=== PATIENT | male | born 1970 | race Caucasian/White ===

== ENCOUNTER 2021-12-05 01:47 | Inpatient (IN) | payer MEDICAID ==
--- NOTE | 2021-12-05 02:21 | ERPHSYRPT ---
- History of Present Illness Time Seen by Provider: 12/05/21 02:20 Source: patient Exam Limitations: no limitations Patient Subjective Stated Complaint: pt states he has been sick for the last 4 days and has been increasingly short of breath to. night Triage Nursing Assessment: pt awake and alert, back to room per wheelchair, transfers to stretcher with assist of 1. respirations tachy at 40 with o2 sat 90% on room air. o2 applied at 2l per nc and sat increased to 94%. lung sounds diminished bilat. skin, diaphoretic and warm.heart [id number] on monitor, sinus tach. Timing/Duration: day(s) (4) Activities at Onset: activity Severity of Dyspnea-Max: moderate Severity of Dyspnea-Current: moderate Possible Cause: smoke exposure Modifying Factors: Improves With: activity Associated Symptoms: denies symptoms Allergies/Adverse Reactions: No Known Drug Allergies Allergy (Verified 12/05/21 01:54) Home Medications: No Reportable Medications [No Reported Medications] 12/05/21 [History] Hx Tetanus, Diphtheria Vaccination/Date Given: Yes Hx Influenza Vaccination/Date Given: No Hx Pneumococcal Vaccination/Date Given: No Immunizations Up to Date: Yes Travel Risk - International Travel Have you traveled outside of the country in past 3 weeks: No - Coronavirus Screening Are you exhibiting any of the following symptoms?: Yes Symptoms: Fever, Cough: New Onset, Shortness of Breath, Headaches/Body Aches/Fatigue Close contact with a COVID-19 positive Pt in past 14-21 Days: Yes - Vaccine Status Have you recieved a Covid-19 vaccination: No - Review of Systems Constitutional: Fatigue, Malaise Eyes: No Symptoms Ears, Nose, & Throat: No Symptoms Respiratory: Cough Cardiac: No Symptoms Abdominal/Gastrointestinal: No Symptoms Genitourinary Symptoms: No Symptoms Musculoskeletal: No Symptoms Skin: No Symptoms Neurological: No Symptoms Psychological: No Symptoms Endocrine: No Symptoms Hematologic/Lymphatic: No Symptoms Immunological/Allergic: No Symptoms - Past Medical History Pertinent Past Medical History: Yes Cardiac History: Hypertension - Past Surgical History Past Surgical History: Yes Other Surgical History: surgery on leg, pt poor historian at [facility]ist[facility] - Social History Smoking Status: Current every day smoker How long have you smoked: yrs Drug Use: methamphetamines Patient Lives Alone: No - Nursing Vital Signs Nursing Vital Signs: Initial Vital Signs Temperature 98.7 F 12/05/21 01:55 Pulse Rate 127 H 12/05/21 01:55 Respiratory Rate 42 H 12/05/21 01:55 Blood Pressure 155/91 12/05/21 01:55 O2 Sat by Pulse Oximetry 90 L 12/05/21 01:55 Pain Scale Pain Intensity 8 - Physical Exam General Appearance: moderate distress Eye Exam: PERRL/EOMI Ears, Nose, Throat Exam: normal ENT inspection Neck Exam: normal inspection, non-tender Respiratory Exam: airway intact, diminished breath sounds, rhonchi Cardiovascular/Chest Exam: normal heart sounds, regular rate/rhythm, tachycardia Abdominal/Gastrointestinal Exam: soft Rectal Exam: deferred Extremity Exam: non-tender Neurologic Exam: alert, oriented x 3 Skin Exam: normal color SpO2 Interpretation: borderline oxygenation SpO2: 90 O2 Delivery: Nasal Cannula - Course Nursing assessment & vital signs reviewed: Yes EKG Interpreted by Me: RATE, Sinus Tach (124), NORMAL AXIS, NORMAL INTERVALS, NORMAL QRS, NORMAL ST-T - Radiology Exams Other X-ray Interpretation: Interpreted by me, Infiltrates, Pneumonia (RLL) Ordered Tests: Active Orders 24 hr Category Date Time Status EKG-ER Only STAT Care 12/05/21 02:26 Active CHEST 1 VIEW (PORTABLE) Stat Exams 12/05/21 02:27 Taken ABG [ARTERIAL BLOOD GASES] Stat Lab 12/05/21 02:42 Completed BLOOD CULTURE Stat Lab 12/05/21 03:30 Received BLOOD CULTURE Stat Lab 12/05/21 03:35 Received CBC W DIFF Stat Lab 12/05/21 02:30 Completed CMP Stat Lab 12/05/21 02:30 Completed D-DIMER QUANTITATIVE Stat Lab 12/05/21 02:30 Completed Lactic Acid Stat Lab 12/05/21 02:42 Completed Manual Differential NC Stat Lab 12/05/21 02:30 Completed NT PRO BNP Stat Lab 12/05/21 02:30 Completed TROPONIN Q3H Lab 12/05/21 02:30 Completed TROPONIN Q3H Lab 12/05/21 06:25 Received TROPONIN Q3H Lab 12/05/21 08:30 Ordered TROPONIN Q3H Lab 12/05/21 11:30 Ordered TROPONIN Q3H Lab 12/05/21 14:30 Ordered UA W/RFX UR CULTURE Stat Lab 12/05/21 06:00 Completed Urine Triage Profile Stat Lab 12/05/21 Results Medication Summary Discontinued Medications Generic Name Dose Route Start Last Admin Trade Name Dorinda PRN Reason Stop Dose Admin Cefepime HCl Confirm 12/05/21 03:33 Cefepime Hcl 1 Gm Vial Administered 12/05/21 03:34 Dose 1 g .ROUTE .STK-MED ONE Enoxaparin Sodium 100 mg 12/05/21 06:15 Enoxaparin Sodium 100 Mg/Ml Syringe 1 mg/kg (100 mg) 12/05/21 06:16 SQ ONCE ONE Enoxaparin Sodium Confirm 12/05/21 06:19 Enoxaparin Sodium 120 Mg/0.8 Ml Syringe Administered 12/05/21 06:20 Dose 120 mg SQ .STK-MED ONE Cefepime HCl 1 g/ Sodium 100 mls @ 200 mls/hr 12/05/21 03:02 12/05/21 03:49 Chloride IV 12/05/21 03:31 200 mls/hr STAT STA Administration Sodium Chloride Confirm 12/05/21 03:35 Sodium Chloride 0.9% 100 Ml Bag Administered 12/05/21 03:36 Dose 100 mls @ ud .ROUTE .STK-MED ONE Sodium Chloride 1,000 mls @ 999 mls/hr 12/05/21 03:48 12/05/21 06:05 Sodium Chloride 0.9% 1000 Ml IV 12/05/21 04:48 0 mls/hr .Q1H1M STA Infusion Sodium Chloride Confirm 12/05/21 03:58 Sodium Chloride 0.9% 1000 Ml Administered 12/05/21 03:59 Dose 1,000 mls @ ud .ROUTE .STK-MED ONE Insulin Human Regular 10 unit 12/05/21 03:15 12/05/21 04:05 Insulin Regular, Human 1 Unit IV 12/05/21 03:16 10 unit STAT ONE Administration Insulin Human Regular Confirm 12/05/21 03:57 Insulin Regular, Human 1 Unit Administered 12/05/21 03:58 Dose 10 unit .ROUTE .STK-MED ONE Morphine Sulfate 4 mg 12/05/21 04:22 12/05/21 04:34 Morphine Sulfate 4 Mg/Ml Injection IV 12/05/21 04:23 4 mg STAT ONE Administration Morphine Sulfate Confirm 12/05/21 04:33 Morphine Sulfate 4 Mg/Ml Injection Administered 12/05/21 04:34 Dose 4 mg .ROUTE .STK-MED ONE Ondansetron HCl 4 mg 12/05/21 04:22 12/05/21 04:34 Ondansetron Hcl 4 Mg/2 Ml Vial IV 12/05/21 04:23 4 mg STAT ONE Administration Ondansetron HCl Confirm 12/05/21 04:32 Ondansetron Hcl 4 Mg/2 Ml Vial Administered 12/05/21 04:33 Dose 4 mg .ROUTE .STK-MED ONE Pantoprazole Sodium 40 mg 12/05/21 04:23 12/05/21 04:34 Pantoprazole 40 Mg Vial IV 12/05/21 04:24 40 mg STAT ONE Administration Pantoprazole Sodium Confirm 12/05/21 04:32 Pantoprazole 40 Mg Vial Administered 12/05/21 04:33 Dose 40 mg IV .STK-MED ONE Lab/Rad Data: Laboratory Result Diagrams 12/05/21 02:30 12/05/21 02:30 Laboratory Results 12/05/21 12/05/21 12/05/21 Range/Units Unknown 06:00 02:59 WBC (4.0-10.5) K/mm3 RBC (4.1-5.6) M/mm3 Hgb (12.5-18.0) gm/dl Hct (42-50) % MCV (78-100) fl MCH (26-32) pg MCHC (32-36) g/dl RDW (11.5-14.0) % Plt Count (150-450) K/mm3 MPV (7.5-11.0) fl Segmented Neutrophils (36.-66.) % Lymphocytes (Manual) (24-44) % Monocytes (Manual) (0.0-12.0) % Toxic Granulation Platelet Estimate (NORMAL) RBC Morphology D-Dimer (215-500) ng/mL Puncture Site pCO2 (35-45) mmHg pO2 (75-100) mmHg Base Excess (-2.0-2.0) O2 Saturation (94-100) g/dF ABG pH (7.35-7.45) ABG HCO3 (22-28) ABG O2 Sat (Measured) (95-100) % Soto Test A-a Gradient a/A Ratio Hemoglobin Carboxyhemoglobin (0.0-6.9) % THgb Methemoglobin (1.4-1.5) % Temperature C POC O2 Flow Rate % Sodium (137-145) mmol/L Potassium (3.5-5.1) mmol/L Chloride (98-107) mmol/L Carbon Dioxide (22-30) mmol/L Anion Gap (5-15) MEQ/L BUN (9-20) mg/dL Creatinine (0.66-1.25) mg/dL Estimated GFR ML/MIN Glucose (74-106) mg/dL Lactic Acid (0.4-2.0) Calcium (8.4-10.2) mg/dL Total Bilirubin (0.2-1.3) mg/dL AST (17-59) U/L ALT (0-50) U/L Alkaline Phosphatase (38-126) U/L Troponin I (0.000-0.034) ng/mL NT-Pro-B Natriuret Pep (0-900) pg/mL Serum Total Protein (6.3-8.2) g/dL Albumin (3.5-5.0) g/dL Urine Color YELLOW (YELLOW) Urine Appearance CLEAR (CLEAR) Urine pH 6.0 (5-6) Ur Specific Moseley 1.023 (1.005-1.025) Urine Protein >=500 (Negative) Urine Ketones TRACE (NEGATIVE) Urine Blood MODERATE (0-5) Bradford/ul Urine Nitrite NEGATIVE (NEGATIVE) Urine Bilirubin NEGATIVE (NEGATIVE) Urine Urobilinogen NEGATIVE (0-1) mg/dL Ur Leukocyte Esterase NEGATIVE (NEGATIVE) Urine WBC (Auto) NONE (0-5) /HPF Urine RBC (Auto) NONE (0-2) /HPF U Epithel Cells (Auto) NONE (FEW) /HPF Urine Bacteria (Auto) NONE (NEGATIVE) /HPF Urine Culture Reflexed NO (NO) Urine Glucose >=500 (NEGATIVE) mg/dL Urine Opiates Level NEGATIVE (NEGATIVE) Ur Methadone NEGATIVE (NEGATIVE) Urine Barbiturates NEGATIVE (NEGATIVE) Ur Phencyclidine (PCP) NEGATIVE (NEGATIVE) Urine Amphetamine Pending U Benzodiazepine Level NEGATIVE (NEGATIVE) Urine Cocaine NEGATIVE (NEGATIVE) Urine Marijuana (THC) NEGATIVE (NEGATIVE) Influenza Type A Ag NEGATIVE (NEGATIVE) Influenza Type B Ag NEGATIVE (NEGATIVE) RSV (PCR) NEGATIVE (Negative) SARS-CoV-2 (PCR) POSITIVE A (NEGATIVE) 12/05/21 12/05/21 12/05/21 Range/Units 02:42 02:42 02:30 WBC (4.0-10.5) K/mm3 RBC (4.1-5.6) M/mm3 Hgb (12.5-18.0) gm/dl Hct (42-50) % MCV (78-100) fl MCH (26-32) pg MCHC (32-36) g/dl RDW (11.5-14.0) % Plt Count (150-450) K/mm3 MPV (7.5-11.0) fl Segmented Neutrophils (36.-66.) % Lymphocytes (Manual) (24-44) % Monocytes (Manual) (0.0-12.0) % Toxic Granulation Platelet Estimate (NORMAL) RBC Morphology D-Dimer (215-500) ng/mL Puncture Site LEFT BRACHIAL pCO2 36 (35-45) mmHg pO2 60 L (75-100) mmHg Base Excess 2.7 H (-2.0-2.0) O2 Saturation 91.0 L (94-100) g/dF ABG pH 7.47 H (7.35-7.45) ABG HCO3 26.2 (22-28) ABG O2 Sat (Measured) 94.0 L (95-100) % Soto Test NOT APPLICABLE A-a Gradient 152 a/A Ratio 0.28 Hemoglobin 17.4 Carboxyhemoglobin 2.0 (0.0-6.9) % THgb Methemoglobin 1.2 L (1.4-1.5) % Temperature 37.0 C POC O2 Flow Rate 36 % Sodium (137-145) mmol/L Potassium 4.0 (3.5-5.1) mmol/L Chloride (98-107) mmol/L Carbon Dioxide (22-30) mmol/L Anion Gap (5-15) MEQ/L BUN (9-20) mg/dL Creatinine (0.66-1.25) mg/dL Estimated GFR ML/MIN Glucose (74-106) mg/dL Lactic Acid 1.7 (0.4-2.0) Calcium (8.4-10.2) mg/dL Total Bilirubin (0.2-1.3) mg/dL AST (17-59) U/L ALT (0-50) U/L Alkaline Phosphatase (38-126) U/L Troponin I < 0.012 (0.000-0.034) ng/mL NT-Pro-B Natriuret Pep (0-900) pg/mL Serum Total Protein (6.3-8.2) g/dL Albumin (3.5-5.0) g/dL Urine Color (YELLOW) Urine Appearance (CLEAR) Urine pH (5-6) Ur Specific Moseley (1.005-1.025) Urine Protein (Negative) Urine Ketones (NEGATIVE) Urine Blood (0-5) Bradford/ul Urine Nitrite (NEGATIVE) Urine Bilirubin (NEGATIVE) Urine Urobilinogen (0-1) mg/dL Ur Leukocyte Esterase (NEGATIVE) Urine WBC (Auto) (0-5) /HPF Urine RBC (Auto) (0-2) /HPF U Epithel Cells (Auto) (FEW) /HPF Urine Bacteria (Auto) (NEGATIVE) /HPF Urine Culture Reflexed (NO) Urine Glucose (NEGATIVE) mg/dL Urine Opiates Level (NEGATIVE) Ur Methadone (NEGATIVE) Urine Barbiturates (NEGATIVE) Ur Phencyclidine (PCP) (NEGATIVE) Urine Amphetamine U Benzodiazepine Level (NEGATIVE) Urine Cocaine (NEGATIVE) Urine Marijuana (THC) (NEGATIVE) Influenza Type A Ag (NEGATIVE) Influenza Type B Ag (NEGATIVE) RSV (PCR) (Negative) SARS-CoV-2 (PCR) (NEGATIVE) 12/05/21 12/05/21 12/05/21 Range/Units 02:30 02:30 02:30 WBC 24.5 H (4.0-10.5) K/mm3 RBC 5.76 H (4.1-5.6) M/mm3 Hgb 17.9 (12.5-18.0) gm/dl Hct 50.1 H (42-50) % MCV 87.0 (78-100) fl MCH 31.1 (26-32) pg MCHC 35.7 (32-36) g/dl RDW 12.7 (11.5-14.0) % Plt Count 177 (150-450) K/mm3 MPV 11.1 H (7.5-11.0) fl Segmented Neutrophils 83 H (36.-66.) % Lymphocytes (Manual) 11 L (24-44) % Monocytes (Manual) 6 (0.0-12.0) % Toxic Granulation 1+ Platelet Estimate NORMAL (NORMAL) RBC Morphology NORMAL D-Dimer 896 H* (215-500) ng/mL Puncture Site pCO2 (35-45) mmHg pO2 (75-100) mmHg Base Excess (-2.0-2.0) O2 Saturation (94-100) g/dF ABG pH (7.35-7.45) ABG HCO3 (22-28) ABG O2 Sat (Measured) (95-100) % Soto Test A-a Gradient a/A Ratio Hemoglobin Carboxyhemoglobin (0.0-6.9) % THgb Methemoglobin (1.4-1.5) % Temperature C POC O2 Flow Rate % Sodium 125 L (137-145) mmol/L Potassium 4.2 (3.5-5.1) mmol/L Chloride 86 L (98-107) mmol/L Carbon Dioxide 25 (22-30) mmol/L Anion Gap 18.1 H (5-15) MEQ/L BUN 15 (9-20) mg/dL Creatinine 0.68 (0.66-1.25) mg/dL Estimated GFR > 60.0 ML/MIN Glucose 370 H (74-106) mg/dL Lactic Acid (0.4-2.0) Calcium 9.6 (8.4-10.2) mg/dL Total Bilirubin 1.20 (0.2-1.3) mg/dL AST 41 (17-59) U/L ALT 53 H (0-50) U/L Alkaline Phosphatase 164 H (38-126) U/L Troponin I (0.000-0.034) ng/mL NT-Pro-B Natriuret Pep 428 (0-900) pg/mL Serum Total Protein 7.6 (6.3-8.2) g/dL Albumin 4.1 (3.5-5.0) g/dL Urine Color (YELLOW) Urine Appearance (CLEAR) Urine pH (5-6) Ur Specific Moseley (1.005-1.025) Urine Protein (Negative) Urine Ketones (NEGATIVE) Urine Blood (0-5) Bradford/ul Urine Nitrite (NEGATIVE) Urine Bilirubin (NEGATIVE) Urine Urobilinogen (0-1) mg/dL Ur Leukocyte Esterase (NEGATIVE) Urine WBC (Auto) (0-5) /HPF Urine RBC (Auto) (0-2) /HPF U Epithel Cells (Auto) (FEW) /HPF Urine Bacteria (Auto) (NEGATIVE) /HPF Urine Culture Reflexed (NO) Urine Glucose (NEGATIVE) mg/dL Urine Opiates Level (NEGATIVE) Ur Methadone (NEGATIVE) Urine Barbiturates (NEGATIVE) Ur Phencyclidine (PCP) (NEGATIVE) Urine Amphetamine U Benzodiazepine Level (NEGATIVE) Urine Cocaine (NEGATIVE) Urine Marijuana (THC) (NEGATIVE) Influenza Type A Ag (NEGATIVE) Influenza Type B Ag (NEGATIVE) RSV (PCR) (Negative) SARS-CoV-2 (PCR) (NEGATIVE) - Progress Progress: improved Air Movement: fair Progress Note: 12/05/21 06:46 Has COVID with hypoxemia and pneumonia. May have a bacterial component. EKG's normal. Troponins neg. Vague right side chest pain (pneumonia that side). D- dimer up somewhat, still think PE unlikely, but gave full dose of lovenox pending eval by PCP. Cefipime given. Diabetes, ? new dx. Gave one dose of insulin in ER. Dr. Romero will see him shortly. Blood Culture(s) Obtained: Yes Antibiotics given: Yes Discussed with Dr.: Other (Dr. Espinoza) Will see patient in: hospital (full admit) Counseled pt/family regarding: lab results, diagnosis, rad results - Departure Departure Disposition: In-patient Admission Clinical Impression: Pneumonia due to COVID-19 virus Uncontrolled diabetes mellitus Qualifiers: Diabetes mellitus type: type 2 Glycemic state: with hyperglycemia Qualified Code(s): E11.65 - Type 2 diabetes mellitus with hyperglycemia Condition: Stable Critical Care Time: Yes Critical Care Time(excluding separately billable procedures): Critical 30-74 mins Referrals: SANGEETA ROMERO [ACTIVE STAFF] - Follow up/PCP as directed
[2021-12-05 02:47] LABS: A-aADO2 152; ABG HEMOGLOBIN 17.4; ABG SITE LEFT BRACHIAL; ARTERIAL BLOOD GAS BASE EXCESS 2.7 (-2.0-2.0); ARTERIAL BLOOD GAS FIO2 36 %; ARTERIAL BLOOD GAS PCO2 36 mmHg (35-45); ARTERIAL BLOOD GAS PO2 60 mmHg (75-100); ARTERIAL BLOOD GAS pH 7.47 (7.35-7.45); HCO3- 26.2 (22-28); Methhemoglobin 1.2 % (1.4-1.5)
[2021-12-05 02:50] LABS: Hematocrit 50.1 % (42-50); Hemoglobin 17.9 gm/dl (12.5-18.0); Mean Corpuscular Hemoglobin 31.1 pg (26-32); Mean Corpuscular Hgb Concent. 35.7 g/dl (32-36); Mean Platelet Volume 11.1 fl (7.5-11.0); Platelet Count 177 K/mm3 (150-450); Red Blood Count 5.76 M/mm3 (4.1-5.6); Red Cell Distribution Width 12.7 % (11.5-14.0); White Blood Count 24.5 K/mm3 (4.0-10.5)
[2021-12-05] MEDS ORDERED: SODIUM CHLORIDE 0.9% IV STA (03:02)
[2021-12-05] MEDS ORDERED: MAXIPIME IV STA (03:02)
[2021-12-05 03:06] LABS: ALBUMIN 4.1 g/dL (3.5-5.0); ALKALINE PHOSPHATASE 164 U/L (38-126); ANION GAP 18.1 MEQ/L (5-15); BLOOD UREA NITROGEN 15 mg/dL (9-20); CHLORIDE 86 mmol/L (98-107); Calcium 9.6 mg/dL (8.4-10.2); Carbon Dioxide 25 mmol/L (22-30); Creatinine 1 0.68 mg/dL (0.66-1.25); EST GLOMERULAR FILTRATION RATE > 60.0 ML/MIN; Glucose 370 mg/dL (74-106); NT PRO BNP 428 pg/mL (0-900); Potassium 4.2 mmol/L (3.5-5.1); SGOT/AST 41 U/L (17-59); SGPT/ALT 53 U/L (0-50); SODIUM 125 mmol/L (137-145); Total Protein 7.6 g/dL (6.3-8.2)
[2021-12-05] MEDS ORDERED: HUMULIN R IV ONE (03:15)
[2021-12-05] MEDS ORDERED: MAXIPIME 1 GM ONE (03:33)
[2021-12-05] MEDS ORDERED: Sodium Chloride 0.9% 100 ML BAG 100 ML ONE (03:35)
[2021-12-05 03:41] LABS: INFLUENZA A NEGATIVE (NEGATIVE); INFLUENZA B NEGATIVE (NEGATIVE); RESPIRATORY SYNCTIAL VIRUS NEGATIVE (Negative)
[2021-12-05 03:48] LABS: SARS-CoV-2 Xpert Express POSITIVE (NEGATIVE)
[2021-12-05] MEDS ORDERED: Sodium Chloride 0.9% 1000 ML 1,000 ML IV STA (03:48)
[2021-12-05] MEDS ORDERED: HUMULIN R ONE (03:57)
[2021-12-05] MEDS ORDERED: Sodium Chloride 0.9% 1000 ML 1,000 ML ONE (03:58)
[2021-12-05] MEDS ORDERED: MORPHINE SULFATE 4 MG INJ IV ONE ×2 (04:22→06:45)
[2021-12-05] MEDS ORDERED: Zofran 4 MG/2 ML VIAL IV ONE (04:22)
[2021-12-05] MEDS ORDERED: PROTONIX 40 MG IV IV ONE ×2 (04:23→04:32)
[2021-12-05] MEDS ORDERED: Zofran 4 MG/2 ML VIAL ONE (04:32)
[2021-12-05] MEDS ORDERED: MORPHINE SULFATE 4 MG INJ ONE ×2 (04:33→06:49)
[2021-12-05 05:35] LABS: Lymphocytes 11 % (24-44); Monocyte 6 % (0.0-12.0); Neutrophils 83 % (36.-66.); Platelet Estimate NORMAL (NORMAL); Total Cells Counted 100; Toxic Granulation 1+
[2021-12-05] MEDS ORDERED: ENOXAPARIN SODIUM SQ ONE ×2 (06:15→06:19)
[2021-12-05 06:21] LABS: Appearance CLEAR (CLEAR); Bilirubin NEGATIVE (NEGATIVE); Blood MODERATE Ery/ul (0-5); Glucose >=500 mg/dL (NEGATIVE); Ketones TRACE (NEGATIVE); Leukocyte Esterase NEGATIVE (NEGATIVE); Nitrite NEGATIVE (NEGATIVE); Protein,Urine Dip >=500 (Negative); Specific Gravity 1.023 (1.005-1.025); Urobilinogen NEGATIVE mg/dL (0-1)
[2021-12-05 06:34] LABS: Barbiturate,Urine NEGATIVE (NEGATIVE); Benzodiazepine,Urine NEGATIVE (NEGATIVE); Cocaine,Urine NEGATIVE (NEGATIVE); Methadone,Urine NEGATIVE (NEGATIVE); Opiate,Urine NEGATIVE (NEGATIVE); PCP,Urine NEGATIVE (NEGATIVE); THC,Urine NEGATIVE (NEGATIVE)
[2021-12-05 06:56] LABS: Amphetamine,Urine POSITIVE (NEGATIVE)
--- NOTE | 2021-12-05 08:09 | XRAY ---
Indication: Fever, cough, and short of breath. Comparison: None Portable chest demonstrates moderate right lower lobe consolidating airspace disease. Incidental azygous lobe. Remaining heart and lungs unremarkable. Bony thorax intact with mild osteopenia and degenerative changes.
[2021-12-05] MEDS ORDERED: MORPHINE SULFATE 10 MG/ML IV PRN (09:01)
[2021-12-05] MEDS ORDERED: Ativan 2 MG/1 ML VIAL IV PRN ×2 (09:02)
[2021-12-05] MEDS ORDERED: Zofran 4 MG/2 ML VIAL IV PRN (09:02)
[2021-12-05] MEDS ORDERED: FEVERALL 650 MG PR PRN (09:02)
[2021-12-05] MEDS ORDERED: TYLENOL EXTRA STRENGTH 500 MG PO PRN (09:02)
[2021-12-05] MEDS ORDERED: Sodium Chloride 0.9% 1000 ML 1,000 ML IV SCH (09:15)
[2021-12-05] MEDS ORDERED: HUMALOG SQ PRN (09:15)
[2021-12-05] MEDS: DECADRON 10MG INJ. IV SCH (09:25)
[2021-12-05] MEDS: OLUMIANT PO SCH (09:25)
[2021-12-05] MEDS: HUMALOG SQ PRN ×4 (09:28→22:01)
[2021-12-05] MEDS ORDERED: REMDESIVIR 200 MG in Sodium Chloride 0.9% 250 ML 250 ML IV ONE (10:00)
[2021-12-05] MEDS: Sodium Chloride 0.9% 1000 ML 1,000 ML IV SCH (11:43)
[2021-12-05] MEDS ORDERED: Lantus Insulin SQ SCH (22:00)
[2021-12-05] MEDS: ROCEPHIN 1 Gm-D5w 50 ml Bag** 1 G/50 ML IVPB IV SCH (22:02)
[2021-12-05] MEDS: HYDROCODONE-CHLORPHEN ER SUSP PO PRN (23:09)
[2021-12-05] MEDS: MORPHINE SULFATE 10 MG/ML IV PRN (23:09)
[2021-12-06 07:50] LABS: Hemoglobin 15.4 gm/dl (12.5-18.0); Mean Cell Volume 90.4 fl (78-100); Mean Corpuscular Hemoglobin 30.9 pg (26-32); Mean Corpuscular Hgb Concent. 34.2 g/dl (32-36); Mean Platelet Volume 10.8 fl (7.5-11.0); Platelet Count 164 K/mm3 (150-450); Red Blood Count 4.98 M/mm3 (4.1-5.6); White Blood Count 15.1 K/mm3 (4.0-10.5)
[2021-12-06] MEDS: ENOXAPARIN SODIUM SQ SCH (08:29)
[2021-12-06] MEDS: OLUMIANT PO SCH (08:29)
[2021-12-06 08:30] LABS: ALBUMIN 3.5 g/dL (3.5-5.0); ALKALINE PHOSPHATASE 154 U/L (38-126); ANION GAP 11.6 MEQ/L (5-15); BLOOD UREA NITROGEN 22 mg/dL (9-20); CHLORIDE 92 mmol/L (98-107); Calcium 9.3 mg/dL (8.4-10.2); Carbon Dioxide 27 mmol/L (22-30); Creatinine 1 0.54 mg/dL (0.66-1.25); EST GLOMERULAR FILTRATION RATE > 60.0 ML/MIN; Glucose 439 mg/dL (74-106); NT PRO BNP 87.6 pg/mL (0-900); Potassium 4.6 mmol/L (3.5-5.1); SGOT/AST 30 U/L (17-59); SGPT/ALT 40 U/L (0-50); SODIUM 126 mmol/L (137-145); Total Protein 7.3 g/dL (6.3-8.2)
[2021-12-06] MEDS: DECADRON 10MG INJ. IV SCH (08:30)
[2021-12-06] MEDS: REMDESIVIR 100 MG in Sodium Chloride 0.9% 100 ML BAG 100 ML IV SCH (08:33)
[2021-12-06] MEDS: HUMALOG SQ PRN (08:34)
[2021-12-06] MEDS: HUMULIN R 100 UNIT in Sodium Chloride 0.9% 100 ML BAG 100 ML IV PRN ×2 (12:15→20:47)
[2021-12-06] MEDS ORDERED: HUMULIN R IV ONE (12:30)
[2021-12-06] MEDS: HYDROCODONE-CHLORPHEN ER SUSP PO PRN (17:07)
[2021-12-06] MEDS: Ativan 1 MG PO PRN (17:07)
[2021-12-06] MEDS: Sodium Chloride 0.9% 1000 ML 1,000 ML IV SCH (20:53)
[2021-12-06] MEDS: ROCEPHIN 1 Gm-D5w 50 ml Bag** 1 G/50 ML IVPB IV SCH (20:53)
[2021-12-07] MEDS ORDERED: Lantus Insulin SQ SCH ×2 (03:15→22:00)
[2021-12-07] MEDS: Ativan 1 MG PO PRN (06:33)
[2021-12-07] MEDS: HUMALOG SQ PRN ×4 (08:13→22:08)
[2021-12-07 09:02] LABS: Hematocrit 47.9 % (42-50); Hemoglobin 16.2 gm/dl (12.5-18.0); Mean Cell Volume 90.9 fl (78-100); Mean Corpuscular Hemoglobin 30.7 pg (26-32); Mean Corpuscular Hgb Concent. 33.8 g/dl (32-36); Mean Platelet Volume 11.1 fl (7.5-11.0); Platelet Count 186 K/mm3 (150-450); Red Blood Count 5.27 M/mm3 (4.1-5.6); Red Cell Distribution Width 12.8 % (11.5-14.0); White Blood Count 15.4 K/mm3 (4.0-10.5)
[2021-12-07 09:10] LABS: ALBUMIN 3.7 g/dL (3.5-5.0); ALKALINE PHOSPHATASE 143 U/L (38-126); ANION GAP 9.6 MEQ/L (5-15); BLOOD UREA NITROGEN 22 mg/dL (9-20); CHLORIDE 92 mmol/L (98-107); Calcium 9.5 mg/dL (8.4-10.2); Carbon Dioxide 32 mmol/L (22-30); Creatinine 1 0.62 mg/dL (0.66-1.25); EST GLOMERULAR FILTRATION RATE > 60.0 ML/MIN; Glucose 266 mg/dL (74-106); Potassium 4.2 mmol/L (3.5-5.1); SGOT/AST 33 U/L (17-59); SGPT/ALT 39 U/L (0-50); SODIUM 130 mmol/L (137-145); Total Protein 7.8 g/dL (6.3-8.2)
[2021-12-07] MEDS: DECADRON 10MG INJ. IV SCH (10:27)
[2021-12-07] MEDS: REMDESIVIR 100 MG in Sodium Chloride 0.9% 100 ML BAG 100 ML IV SCH (10:27)
[2021-12-07] MEDS: OLUMIANT PO SCH (10:27)
[2021-12-07] MEDS: ENOXAPARIN SODIUM SQ SCH (10:27)
--- NOTE | 2021-12-07 11:32 | PROG NOTE ---
DATE: 12/07/2021 HISTORY: Problem #1: COVID. The patient's O2 on regular oxygen is running needs about 2 to 3 liters to keep his O2 saturations at 90%. Much improved. He still has a productive cough. No GI problems. Problem #2: The patient has a right lobar pneumonia with gram-positive cultures. I believe that is better. His pleuritic pain is just about gone. CBC is pending. The patient stated that he did not know that he had diabetes when he came in. His blood sugar has been running 300 to 400. Finally used insulin drip to get it under control and it is under 200 all night and he is on Lantus and coverage with NovoLog. Blood sugars are much improved. IMPRESSION: 1) Probably pneumococcal pneumonia, improved. 2) Diabetes mellitus. PLAN: The patient will be able to go home on oral antibiotics for lobar pneumonia and perhaps O2 in several days. PROGNOSIS: Good.
--- NOTE | 2021-12-07 11:52 | HP ---
CHIEF COMPLAINT: Shortness of breath, chest pain. HISTORY OF PRESENT ILLNESS: The patient was in the emergency room after having increasing chest pain on the right side. He has been coughing, running a fever, feels pretty rough for the last four days. He has no nausea or vomiting but no appetite. In the emergency room, he was tachypneic with O2 of 90% on room air. He states he has not been vaccinated against COVID and his COVID test was positive. TRAVEL RISK: No international travel. CORONAVIRUS SCREENING: Exposure to COVID: Yes, a family member. MEDICATIONS: None. ALLERGIES: NKDA. PAST MEDICAL HISTORY: Hypertension. PAST SURGICAL HISTORY: Something on his left leg. He really could not tell me. REVIEW OF SYSTEMS: HEENT: No problems hearing or seeing. CHEST: Coughing, sharp pain right side worse with inspiration. CVS: No exertional chest pain, palpitations or chest heaviness. ABDOMEN: No nausea or vomiting. Decreased appetite for four days. MUSCULOSKELETAL: No problems. CARDIAC: He states he has hypertension. SOCIAL HISTORY: The patient smokes a pack a day. He does use methamphetamines. He lives apparently with his . PHYSICAL EXAMINATION: The patient is alert, orientated and in a fair amount of pain this morning in his right chest. He is cooperative. O2 saturation presently is 90% on 2 liters. VITAL SIGNS: Temperature 98F, pulse 120, respirations 40, blood pressure 130/70. O2 saturation is 90%. Pain intensity 8. HEENT: Pupils equal and reactive to light. Hears and sees okay. NECK: Supple without adenopathy. CHEST: Decreased breath sounds on the right. CVS: No murmurs or gallops. ABDOMEN: No tenderness. No organomegaly. He is rather heavy. LAB DATA AND TESTS: Labs from the emergency room: Troponins were negative. ABG's with pH of 7.47, pCO2 of 26, pO2 of 94. Methemoglobin was low at 1.2. Potassium 4. White count was elevated 24.5, hemoglobin 17.9. D-dimer elevated at 896. Sodium was low at 125. Creatinine 0.68, potassium 4.2. Liver enzymes alkaline phosphatase was slightly elevated at 164, ALT minimally elevated at 53. Chest x-ray showed a right lobar pneumonia. Drug screen was positive for meth. IMPRESSION: 1) The patient is COVID positive and probably has COVID pneumonitis. 2) The patient also has lobar pneumonia with elevated white count and chest x-ray showed right lower lobe infiltrate. EKG reads no anterior septal myocardial infarction which might also be rotation. PLAN: The patient will be admitted for IV antibiotics and be placed on standard treatment for COVID, anticoagulation, Remdesivir, Decadron and antibodies. PROGNOSIS: Fair.
[2021-12-07] MEDS: HYDROCODONE-CHLORPHEN ER SUSP PO PRN (14:51)
[2021-12-07] MEDS: MORPHINE SULFATE 10 MG/ML IV PRN ×2 (16:43→20:28)
[2021-12-07] MEDS: ROCEPHIN 1 Gm-D5w 50 ml Bag** 1 G/50 ML IVPB IV SCH (22:08)
[2021-12-07] MEDS: Lantus Insulin SQ SCH (22:08)
[2021-12-08] MEDS: HYDROCODONE-CHLORPHEN ER SUSP PO PRN ×2 (02:57→15:53)
[2021-12-08] MEDS: MORPHINE SULFATE 10 MG/ML IV PRN ×4 (02:57→21:06)
[2021-12-08 05:55] LABS: Hematocrit 44.5 % (42-50); Mean Cell Volume 91.8 fl (78-100); Mean Corpuscular Hemoglobin 30.9 pg (26-32); Mean Corpuscular Hgb Concent. 33.7 g/dl (32-36); Platelet Count 186 K/mm3 (150-450); Red Blood Count 4.85 M/mm3 (4.1-5.6); Red Cell Distribution Width 12.8 % (11.5-14.0); White Blood Count 11.6 K/mm3 (4.0-10.5)
[2021-12-08 06:05] LABS: ALBUMIN 3.2 g/dL (3.5-5.0); ALKALINE PHOSPHATASE 134 U/L (38-126); ANION GAP 12.6 MEQ/L (5-15); BLOOD UREA NITROGEN 19 mg/dL (9-20); CHLORIDE 95 mmol/L (98-107); Calcium 8.9 mg/dL (8.4-10.2); Carbon Dioxide 29 mmol/L (22-30); Creatinine 1 0.51 mg/dL (0.66-1.25); EST GLOMERULAR FILTRATION RATE > 60.0 ML/MIN; Glucose 306 mg/dL (74-106); Potassium 4.2 mmol/L (3.5-5.1); SGOT/AST 24 U/L (17-59); SGPT/ALT 33 U/L (0-50); SODIUM 132 mmol/L (137-145); Total Protein 6.7 g/dL (6.3-8.2)
[2021-12-08] MEDS: Sodium Chloride 0.9% 1000 ML 1,000 ML IV SCH ×2 (07:25→09:47)
[2021-12-08] MEDS: HUMALOG SQ PRN ×4 (07:34→21:06)
[2021-12-08] MEDS: DECADRON 10MG INJ. IV SCH (09:45)
[2021-12-08] MEDS: OLUMIANT PO SCH (09:45)
[2021-12-08] MEDS: Ativan 1 MG PO PRN ×2 (09:45→15:53)
[2021-12-08] MEDS: ENOXAPARIN SODIUM SQ SCH (09:45)
[2021-12-08] MEDS: Nicoderm CQ 21 MG TOP SCH (10:10)
[2021-12-08] MEDS: REMDESIVIR 100 MG in Sodium Chloride 0.9% 100 ML BAG 100 ML IV SCH (10:18)
--- NOTE | 2021-12-08 13:15 | PCM.NOTE ---
Date and Time: 12/08/21 1313 Subjective Assessment: still very hypoxic - Review of Systems Constitutional: No Fever, No Chills Eyes: No Symptoms Ears, Nose, & Throat: No Symptoms Respiratory: Cough, Orthopnea, Short Of Breath, Wheezing Cardiac: No Chest Pain, No Edema, No Syncope Abdominal/Gastrointestinal: No Abdominal Pain, No Nausea, No Vomiting, No Diarrhea Genitourinary Symptoms: No Dysuria Musculoskeletal: No Back Pain, No Neck Pain Skin: No Rash Neurological: No Dizziness, No Focal Weakness, No Sensory Changes Psychological: No Symptoms Endocrine: No Symptoms Hematologic/Lymphatic: No Symptoms Immunological/Allergic: No Symptoms Objective Exam General Appearance: no apparent distress, moderate distress, alert Neurologic Exam: alert, oriented x 3, cooperative, normal mood/affect, sensation nml, No motor deficits Skin Exam: normal color, warm, dry Eye Exam: PERRL, EOMI, eyes nml inspection Ears, Nose, Throat Exam: normal ENT inspection, pharynx normal, moist mucous membranes Neck Exam: normal inspection, non-tender, supple, full range of motion Respiratory Exam: crackles/rales, rhonchi, wheezing, No respiratory distress Cardiovascular Exam: regular rate/rhythm, normal heart sounds Gastrointestinal/Abdomen Exam: soft, No tenderness, No mass Extremity Exam: normal inspection, normal range of motion Back Exam: normal inspection, normal range of motion, No CVA tenderness, No vertebral tenderness Male Genitalia Exam: deferred Rectal Exam: deferred OBJECTIVE DATA Vital Signs: Vital Signs - 24 hr Temp Pulse Resp BP Pulse Ox 12/08/21 12:55 88 18 92 L 12/08/21 11:00 18 12/08/21 09:08 94 L 12/08/21 09:00 74 18 94 L 12/08/21 07:00 16 12/08/21 05:00 16 12/08/21 04:08 97.3 F 81 16 120/76 92 L 12/08/21 04:00 72 12/08/21 03:00 16 12/08/21 01:00 16 12/08/21 00:59 86 15 96 12/08/21 00:00 79 12/07/21 23:00 18 12/07/21 21:00 18 12/07/21 20:04 97.0 F 81 18 91/50 97 12/07/21 20:00 96 H 12/07/21 19:50 95 12/07/21 19:00 16 12/07/21 17:49 97.0 F 81 16 115/73 94 L 12/07/21 17:00 18 12/07/21 16:00 103 H 14 12/07/21 15:00 20 Pain Assessment - Last Documented Pain Intensity 0 Pain Scale Used 0-10 Pain Scale Intake and Output: Intake & Output 12/06/21 12/07/21 12/08/21 12/09/21 11:59 11:59 11:59 11:59 Intake Total 1808 2040 1560 240 Output Total 3000 4450 3850 Balance -1192 -2410 -2290 240 Lab Results: Lab Results-Last 24 Hours 12/07/21 12/07/21 12/08/21 Range/Units 16:35 21:35 05:00 WBC 11.6 H (4.0-10.5) K/mm3 RBC 4.85 (4.1-5.6) M/mm3 Hgb 15.0 (12.5-18.0) gm/dl Hct 44.5 (42-50) % MCV 91.8 (78-100) fl MCH 30.9 (26-32) pg MCHC 33.7 (32-36) g/dl RDW 12.8 (11.5-14.0) % Plt Count 186 (150-450) K/mm3 MPV 11.0 (7.5-11.0) fl D-Dimer (215-500) ng/mL Sodium (137-145) mmol/L Potassium (3.5-5.1) mmol/L Chloride (98-107) mmol/L Carbon Dioxide (22-30) mmol/L Anion Gap (5-15) MEQ/L BUN (9-20) mg/dL Creatinine (0.66-1.25) mg/dL Estimated GFR ML/MIN Glucose (74-106) mg/dL POC Glucometer 439 H 429 H (74 to 106) mg/dL Calcium (8.4-10.2) mg/dL Total Bilirubin (0.2-1.3) mg/dL AST (17-59) U/L ALT (0-50) U/L Alkaline Phosphatase (38-126) U/L Serum Total Protein (6.3-8.2) g/dL Albumin (3.5-5.0) g/dL 12/08/21 12/08/21 12/08/21 Range/Units 05:00 05:00 11:41 WBC (4.0-10.5) K/mm3 RBC (4.1-5.6) M/mm3 Hgb (12.5-18.0) gm/dl Hct (42-50) % MCV (78-100) fl MCH (26-32) pg MCHC (32-36) g/dl RDW (11.5-14.0) % Plt Count (150-450) K/mm3 MPV (7.5-11.0) fl D-Dimer 830 H* (215-500) ng/mL Sodium 132 L (137-145) mmol/L Potassium 4.2 (3.5-5.1) mmol/L Chloride 95 L (98-107) mmol/L Carbon Dioxide 29 (22-30) mmol/L Anion Gap 12.6 (5-15) MEQ/L BUN 19 (9-20) mg/dL Creatinine 0.51 L (0.66-1.25) mg/dL Estimated GFR > 60.0 ML/MIN Glucose 306 H (74-106) mg/dL POC Glucometer 300 H (74 to 106) mg/dL Calcium 8.9 (8.4-10.2) mg/dL Total Bilirubin 0.70 (0.2-1.3) mg/dL AST 24 (17-59) U/L ALT 33 (0-50) U/L Alkaline Phosphatase 134 H (38-126) U/L Serum Total Protein 6.7 (6.3-8.2) g/dL Albumin 3.2 L (3.5-5.0) g/dL Multi-Disciplinary Progress Notes: Multi-Disciplinary Progress Notes 12/07/21 13:34 Case Management Note by Sylwia Hung ATTEMPTED TO PHONE PATIENT ROOM MULTIPLE TIMES FOR D/C AND CASE MANAGEMENT ASSESSMENT. NO ANSWER. PRIMARY RN STATES PT HAS BEEN SLEEPING MOST OF DAY D/T ATIVAN BEING GIVEN. WILL ATTEMPT D/C ASSESSMENT TOMORROW, NO PLANS FOR D/C TODAY. Initialized on 12/07/21 13:34 - END OF NOTE Assessment/Plan (1) Pneumonia due to COVID-19 virus Current Visit: Yes Status: Acute Assessment & Plan: Chief Complaint Diagnosis COVID Pneumonia Allergies Allergy/AdvReac Type Severity Reaction Status Date / Time No Known Drug Allergies Allergy Verified 12/05/21 01:54 Vital Signs (Last 24 hours) Temp Pulse Resp BP Pulse Ox 12/08/21 12:55 88 18 92 L 12/08/21 11:00 18 12/08/21 09:08 94 L 12/08/21 09:00 74 18 94 L 12/08/21 07:00 16 12/08/21 05:00 16 12/08/21 04:08 97.3 F 81 16 120/76 92 L 12/08/21 04:00 72 12/08/21 03:00 16 12/08/21 01:00 16 12/08/21 00:59 86 15 96 12/08/21 00:00 79 12/07/21 23:00 18 12/07/21 21:00 18 12/07/21 20:04 97.0 F 81 18 91/50 97 12/07/21 20:00 96 H 12/07/21 19:50 95 12/07/21 19:00 16 12/07/21 17:49 97.0 F 81 16 115/73 94 L 12/07/21 17:00 18 12/07/21 16:00 103 H 14 12/07/21 15:00 20 Home Medications Medication Instructions Recorded Confirmed Last Taken Type No Reportable Medications [No 12/05/21 12/05/21 Unknown History Reported Medications] Current Medications Generic Name Dose Route Start Last Admin Trade Name Roqueq PRN Reason Stop Dose Admin Acetaminophen 500 - 1,000 mg 12/05/21 09:02 12/07/21 14:51 Acetaminophen 500 Mg Tablet PO 01/04/22 09:01 500 mg Q4H PRN PRN Administration Temp > 100.4 Orally Acetaminophen 650 mg 12/05/21 09:02 Acetaminophen 650 Mg Supp.Rect UT 01/04/22 09:01 Q4H PRN PRN Temp > 100.4 Orally Baricitinib 4 mg 12/05/21 10:00 12/08/21 09:45 Baricitinib 2 Mg Tablet PO 12/18/21 10:01 4 mg DAILY NISHA Administration Chlorphenir/Hydrocodone Polistirex 5 ml 12/05/21 09:02 12/08/21 02:57 Hydrocodone/Chlorphen P-Stirex 1 Ml Angie.Er.12h PO 01/04/22 09:01 5 ml [id number] PRN Administration COUGH Dexamethasone Sodium Phosphate 8 mg 12/05/21 10:00 12/08/21 09:45 Dexamethasone Sod Phosphate 10 Mg/Ml IV 12/15/21 09:59 8 mg DAILY NISHA Administration Enoxaparin Sodium 60 mg 12/06/21 10:00 12/08/21 09:45 Enoxaparin Sodium 60 Mg/0.6 Ml Syringe SQ 01/05/22 09:59 60 mg DAILY NISHA Administration Remdesivir 100 mg/ Sodium 100 mls @ 100 mls/hr 12/06/21 10:00 12/08/21 10:18 Chloride IV 12/09/21 10:59 100 mls/hr Q24H NISHA Administration Sodium Chloride 1,000 mls @ 30 mls/hr 12/05/21 11:00 12/08/21 09:47 Sodium Chloride 0.9% 1000 Ml IV 01/04/22 10:59 30 mls/hr .Q24H NISHA Administration Ceftriaxone Sodium/Dextrose 1 g in 50 mls @ 100 mls/hr 12/05/21 22:00 12/07/21 22:08 Rocephin 1 Gm-D5w 50 Ml Bag IV 12/09/21 21:59 100 mls/hr Q24H22 NISHA Administration Insulin Glargine 30 unit 12/07/21 22:00 12/07/21 22:08 Insulin Glargine 1 Unit SQ 01/06/22 21:59 30 unit HS NISHA Administration Insulin Human Lispro 0 unit 12/05/21 16:21 12/08/21 11:50 Insulin Lispro 1 Unit SQ 01/04/22 16:20 10 unit UD PRN Administration HYPERGLYCEMIA Lorazepam 1 mg 12/05/21 09:02 12/06/21 20:53 Lorazepam 2 Mg/1 Ml 2 Mg Vial IV 01/04/22 09:01 1 mg Q4H PRN PRN Administration Anxiety/Sleep Lorazepam 1 mg 12/05/21 09:02 12/08/21 09:45 Lorazepam 1 Mg Tablet PO 01/04/22 09:01 1 mg Q4H PRN PRN Administration Anxiety/Sleep Morphine Sulfate 6 mg 12/05/21 13:07 12/08/21 10:28 Morphine Sulfate 10 Mg/Ml Injection IV 12/10/21 14:00 6 mg Q3H PRN PRN Administration PAIN Nicotine 21 mg 12/08/21 10:00 12/08/21 10:10 Nicotine 21 Mg/Patch Patch TOP 01/07/22 09:59 21 mg Q24H NISHA Administration Ondansetron HCl 4 mg 12/05/21 09:02 Ondansetron Hcl 4 Mg/2 Ml Vial IV 01/04/22 09:01 Q6H PRN PRN NAUSEA/VOMITING Discontinued Medications Generic Name Dose Route Start Last Admin Trade Name Freq PRN Reason Stop Dose Admin Cefepime HCl Confirm 12/05/21 03:33 Cefepime Hcl 1 Gm Vial Administered 12/05/21 03:34 Dose 1 g .ROUTE .STK-MED ONE Enoxaparin Sodium 100 mg 12/05/21 06:15 12/05/21 06:45 Enoxaparin Sodium 100 Mg/Ml Syringe 1 mg/kg (100 mg) 12/05/21 06:16 100 mg SQ Administration ONCE ONE Enoxaparin Sodium Confirm 12/05/21 06:19 Enoxaparin Sodium 120 Mg/0.8 Ml Syringe Administered 12/05/21 06:20 Dose 120 mg SQ .STK-MED ONE Cefepime HCl 1 g/ Sodium 100 mls @ 200 mls/hr 12/05/21 03:02 12/05/21 03:49 Chloride IV 12/05/21 03:31 200 mls/hr STAT STA Administration Sodium Chloride Confirm 12/05/21 03:35 Sodium Chloride 0.9% 100 Ml Bag Administered 12/05/21 03:36 Dose 100 mls @ ud .ROUTE .STK-MED ONE Sodium Chloride 1,000 mls @ 999 mls/hr 12/05/21 03:48 12/05/21 06:05 Sodium Chloride 0.9% 1000 Ml IV 12/05/21 04:48 0 mls/hr .Q1H1M STA Infusion Sodium Chloride Confirm 12/05/21 03:58 Sodium Chloride 0.9% 1000 Ml Administered 12/05/21 03:59 Dose 1,000 mls @ ud .ROUTE .STK-MED ONE Sodium Chloride 1,000 mls @ 125 mls/hr 12/05/21 09:15 Sodium Chloride 0.9% 1000 Ml IV 01/04/22 09:14 .Q8H NISHA Remdesivir 200 mg/ Sodium 250 mls @ 125 mls/hr 12/05/21 10:00 12/05/21 09:36 Chloride IV 12/05/21 11:59 125 mls/hr ONCE ONE Administration Insulin Human Regular 100 unit 100 mls @ 10.48 mls/hr 12/06/21 12:01 12/07/21 03:03 / Sodium Chloride IV 01/05/22 12:00 Infused .Q9H33M PRN Titration DKA/HYPERGLYCEMIA Protocol 0.1 UNIT/KG/HR Insulin Glargine 20 unit 12/05/21 22:00 12/05/21 22:01 Insulin Glargine 1 Unit SQ 01/04/22 21:59 20 unit HS NISHA Administration Insulin Glargine 20 unit 12/07/21 03:15 12/07/21 03:20 Insulin Glargine 1 Unit SQ 12/07/21 03:16 20 unit QAM NISHA Administration Insulin Glargine 20 unit 12/07/21 22:00 Insulin Glargine 1 Unit SQ 01/06/22 21:59 HS NISHA Insulin Human Lispro 0 unit 12/05/21 09:02 12/05/21 15:56 Insulin Lispro 1 Unit SQ 01/04/22 09:01 11 unit UD PRN Administration HYPERGLYCEMIA Insulin Human Regular 10 unit 12/05/21 03:15 12/05/21 04:05 Insulin Regular, Human 1 Unit IV 12/05/21 03:16 10 unit STAT ONE Administration Insulin Human Regular Confirm 12/05/21 03:57 Insulin Regular, Human 1 Unit Administered 12/05/21 03:58 Dose 10 unit .ROUTE .STK-MED ONE Insulin Human Regular 10 unit 12/06/21 12:30 12/06/21 12:19 Insulin Regular, Human 1 Unit IV 12/06/21 12:31 10 unit ONCE ONE Administration Morphine Sulfate 4 mg 12/05/21 04:22 12/05/21 04:34 Morphine Sulfate 4 Mg/Ml Injection IV 12/05/21 04:23 4 mg STAT ONE Administration Morphine Sulfate Confirm 12/05/21 04:33 Morphine Sulfate 4 Mg/Ml Injection Administered 12/05/21 04:34 Dose 4 mg .ROUTE .STK-MED ONE Morphine Sulfate 4 mg 12/05/21 06:45 12/05/21 06:50 Morphine Sulfate 4 Mg/Ml Injection IV 12/05/21 06:46 4 mg STAT ONE Administration Morphine Sulfate Confirm 12/05/21 06:49 Morphine Sulfate 4 Mg/Ml Injection Administered 12/05/21 06:50 Dose 4 mg .ROUTE .STK-MED ONE Morphine Sulfate 10 mg 12/05/21 09:01 12/05/21 09:27 Morphine Sulfate 10 Mg/Ml Injection IV 12/10/21 09:00 10 mg Q3H PRN PRN Administration PAIN Ondansetron HCl 4 mg 12/05/21 04:22 12/05/21 04:34 Ondansetron Hcl 4 Mg/2 Ml Vial IV 12/05/21 04:23 4 mg STAT ONE Administration Ondansetron HCl Confirm 12/05/21 04:32 Ondansetron Hcl 4 Mg/2 Ml Vial Administered 12/05/21 04:33 Dose 4 mg .ROUTE .STK-MED ONE Pantoprazole Sodium 40 mg 12/05/21 04:23 12/05/21 04:34 Pantoprazole 40 Mg Vial IV 12/05/21 04:24 40 mg STAT ONE Administration Pantoprazole Sodium Confirm 12/05/21 04:32 Pantoprazole 40 Mg Vial Administered 12/05/21 04:33 Dose 40 mg IV .STK-MED ONE Intake & Output (Last 24 hours) 12/06/21 12/07/21 12/08/21 12/09/21 11:59 11:59 11:59 11:59 Intake Total 1808 2040 1560 240 Output Total 3000 4450 3850 Balance -4353 -9004 -2290 240 Microbiology Results (Last 24 hours) 12/05/21 03:35 Blood Aerobic Culture - Pending 12/05/21 03:35 Blood Aerobic Organism ID Result 1 - Final Not Reportable 12/05/21 03:35 Blood Aerobic Organism ID Result 2 - Final Not Reportable 12/05/21 03:35 Blood Aerobic Organism ID Result 3 - Final Not Reportable 12/05/21 03:35 Blood Aerobic Organism ID Result 4 - Final Not Reportable 12/05/21 03:35 Blood Aerobic Bacterial Sensitivity - Final Not Reportable 12/05/21 03:35 Blood Blood Culture Gram Stain - Final 12/05/21 03:35 Blood Blood Culture - Preliminary Laboratory Results (Last 24 hours) 12/08/21 12/08/21 12/08/21 11:41 05:00 05:00 WBC RBC Hgb Hct MCV MCH MCHC RDW Plt Count MPV D-Dimer 830 H* Sodium 132 L Potassium 4.2 Chloride 95 L Carbon Dioxide 29 Anion Gap 12.6 BUN 19 Creatinine 0.51 L Estimated GFR > 60.0 Glucose 306 H POC Glucometer 300 H Calcium 8.9 Total Bilirubin 0.70 AST 24 ALT 33 Alkaline Phosphatase 134 H Serum Total Protein 6.7 Albumin 3.2 L 12/08/21 12/07/21 12/07/21 05:00 21:35 16:35 WBC 11.6 H RBC 4.85 Hgb 15.0 Hct 44.5 MCV 91.8 MCH 30.9 MCHC 33.7 RDW 12.8 Plt Count 186 MPV 11.0 D-Dimer Sodium Potassium Chloride Carbon Dioxide Anion Gap BUN Creatinine Estimated GFR Glucose POC Glucometer 429 H 439 H Calcium Total Bilirubin AST ALT Alkaline Phosphatase Serum Total Protein Albumin Orders (Last 24 hours) Category Date Time Status CBC DAILY Lab 12/08/21 05:00 Completed CBC DAILY Lab 12/09/21 04:00 Ordered CBC DAILY Lab 12/10/21 04:00 Ordered CBC DAILY Lab 12/11/21 04:00 Ordered CMP DAILY Lab 12/08/21 05:00 Completed CMP DAILY Lab 12/09/21 04:00 Ordered CMP DAILY Lab 12/10/21 04:00 Ordered CMP DAILY Lab 12/11/21 04:00 Ordered D-DIMER QUANTITATIVE DAILY Lab 12/08/21 05:00 Completed D-DIMER QUANTITATIVE DAILY Lab 12/09/21 04:00 Ordered D-DIMER QUANTITATIVE DAILY Lab 12/10/21 04:00 Ordered D-DIMER QUANTITATIVE DAILY Lab 12/11/21 04:00 Ordered POCT GLUCOSE Stat Lab 12/07/21 16:35 Completed POCT GLUCOSE Stat Lab 12/07/21 21:35 Completed POCT GLUCOSE Stat Lab 12/08/21 11:40 Received POCT GLUCOSE Stat Lab 12/08/21 11:41 Completed Insulin Glargine [Lantus Insulin] Med 12/07/21 22:00 Discontinued 20 unit SQ HS Insulin Glargine [Lantus Insulin] Med 12/07/21 22:00 Active 30 unit SQ HS Nicotine 21 mg [Nicoderm CQ 21 MG] Med 12/08/21 10:00 Active 21 mg TOP Q24H Transfer Order Routine Transfer 12/08/21 Completed Patient Care Notes (Last 24 hours) 12/07/21 13:34 Case Management Note by Sylwia Hung ATTEMPTED TO PHONE PATIENT ROOM MULTIPLE TIMES FOR D/C AND CASE MANAGEMENT ASSESSMENT. NO ANSWER. PRIMARY RN STATES PT HAS BEEN SLEEPING MOST OF DAY D/T ATIVAN BEING GIVEN. WILL ATTEMPT D/C ASSESSMENT TOMORROW, NO PLANS FOR D/C TODAY. Initialized on 12/07/21 13:34 - END OF NOTE Code(s): U07.1 - COVID-19; J12.82 - PNEUMONIA DUE TO CORONAVIRUS DISEASE 2019 (2) Uncontrolled diabetes mellitus Current Visit: Yes Status: Acute Qualifiers: Diabetes mellitus type: type 2 Glycemic state: with hyperglycemia Qualified Code(s): E11.65 - Type 2 diabetes mellitus with hyperglycemia Code(s): E11.65 - TYPE 2 DIABETES MELLITUS WITH HYPERGLYCEMIA
[2021-12-08] MEDS: Lantus Insulin SQ SCH (21:05)
[2021-12-08] MEDS: ROCEPHIN 1 Gm-D5w 50 ml Bag** 1 G/50 ML IVPB IV SCH (21:05)
[2021-12-09 05:35] LABS: Hematocrit 47.5 % (42-50); Hemoglobin 15.8 gm/dl (12.5-18.0); Mean Cell Volume 91.9 fl (78-100); Mean Corpuscular Hemoglobin 30.6 pg (26-32); Mean Corpuscular Hgb Concent. 33.3 g/dl (32-36); Mean Platelet Volume 11.4 fl (7.5-11.0); Platelet Count 190 K/mm3 (150-450); Red Blood Count 5.17 M/mm3 (4.1-5.6); Red Cell Distribution Width 12.8 % (11.5-14.0); White Blood Count 13.3 K/mm3 (4.0-10.5)
[2021-12-09 05:41] LABS: ALBUMIN 3.2 g/dL (3.5-5.0); ALKALINE PHOSPHATASE 166 U/L (38-126); BLOOD UREA NITROGEN 17 mg/dL (9-20); CHLORIDE 95 mmol/L (98-107); Calcium 8.8 mg/dL (8.4-10.2); Carbon Dioxide 29 mmol/L (22-30); EST GLOMERULAR FILTRATION RATE > 60.0 ML/MIN; Glucose 335 mg/dL (74-106); SGOT/AST 24 U/L (17-59); SGPT/ALT 35 U/L (0-50); SODIUM 130 mmol/L (137-145); Total Protein 6.7 g/dL (6.3-8.2)
[2021-12-09] MEDS: HYDROCODONE-CHLORPHEN ER SUSP PO PRN (07:44)
[2021-12-09] MEDS: DECADRON 10MG INJ. IV SCH (08:03)
[2021-12-09] MEDS: OLUMIANT PO SCH (08:03)
[2021-12-09] MEDS: Ativan 1 MG PO PRN (08:03)
[2021-12-09] MEDS: ENOXAPARIN SODIUM SQ SCH (08:03)
[2021-12-09] MEDS: Nicoderm CQ 21 MG TOP SCH (08:04)
[2021-12-09] MEDS: HUMALOG SQ PRN (08:04)
[2021-12-09] MEDS ORDERED: CEPACOL SORE THROAT LOZENGE PO PRN (08:47)
[2021-12-09] MEDS: REMDESIVIR 100 MG in Sodium Chloride 0.9% 100 ML BAG 100 ML IV SCH (10:37)
[2021-12-09 11:49] VITALS: BP 148/69; PULSE 104; O2SAT 93
--- NOTE | 2021-12-09 14:05 | PCM.DS ---
Discharge Summary Date of Admission: 12/05/21 08:14 Admitting Physician: SANGEETA ROMERO Primary Care Provider: NO FAMILY DOCTOR Allergies Allergies No Known Drug Allergies Allergy (Verified 12/05/21 01:54) Hospital Summary - Hospital Course Hospital Course: Chief Complaint Diagnosis COVID Pneumonia Allergies Allergy/AdvReac Type Severity Reaction Status Date / Time No Known Drug Allergies Allergy Verified 12/05/21 01:54 Vital Signs (Last 24 hours) Temp Pulse Resp BP Pulse Ox 12/09/21 13:00 16 12/09/21 11:47 98.2 F 104 H 16 148/69 93 L 12/09/21 10:49 15 12/09/21 10:00 103 H 31 H 95 12/09/21 08:19 16 12/09/21 07:59 98.1 F 78 16 133/82 94 L 12/09/21 06:00 82 14 92 L 12/09/21 04:00 78 20 92 L 12/09/21 02:00 97.0 F 81 20 128/83 90 L 12/09/21 00:00 81 20 89 L 12/08/21 22:00 84 18 90 L 12/08/21 20:00 97.0 F 87 26 H 132/85 92 L 12/08/21 19:15 93 L 12/08/21 18:47 19 12/08/21 17:57 87 19 94 L 12/08/21 16:39 86 19 91 L 12/08/21 16:35 86 19 91 L 12/08/21 14:52 19 Home Medications Medication Instructions Recorded Confirmed Last Taken Type Glimepiride 2 mg [Amaryl 2 2 mg PO DAILY #30 tablet 12/09/21 Unknown Rx MG] Metformin HCl Xr 500 mg 500 mg PO DAILY #30 tab 12/09/21 Unknown Rx [Glucophage XR 500 MG] Methylprednisolone Packet 4 mg PO UD #21 packet 12/09/21 Unknown Rx [Medrol Dosepack] Methylprednisolone Packet 4 mg PO UD #30 packet 12/09/21 Unknown Rx [Medrol Dosepack] Current Medications Generic Name Dose Route Start Last Admin Trade Name Freq PRN Reason Stop Dose Admin Acetaminophen 500 - 1,000 mg 12/05/21 09:02 12/07/21 14:51 Acetaminophen 500 Mg Tablet PO 01/04/22 09:01 500 mg Q4H PRN PRN Administration Temp > 100.4 Orally Acetaminophen 650 mg 12/05/21 09:02 Acetaminophen 650 Mg Supp.Rect TX 01/04/22 09:01 Q4H PRN PRN Temp > 100.4 Orally Baricitinib 4 mg 12/05/21 10:00 12/09/21 08:03 Baricitinib 2 Mg Tablet PO 12/18/21 10:01 4 mg DAILY NISHA Administration Chlorphenir/Hydrocodone Polistirex 5 ml 12/05/21 09:02 12/09/21 07:44 Hydrocodone/Chlorphen P-Stirex 1 Ml Angie.Er.12h PO 01/04/22 09:01 5 ml [id number] PRN Administration COUGH Dexamethasone Sodium Phosphate 8 mg 12/05/21 10:00 12/09/21 08:03 Dexamethasone Sod Phosphate 10 Mg/Ml IV 12/15/21 09:59 8 mg DAILY NISHA Administration Enoxaparin Sodium 60 mg 12/06/21 10:00 12/09/21 08:03 Enoxaparin Sodium 60 Mg/0.6 Ml Syringe SQ 01/05/22 09:59 60 mg DAILY NISHA Administration Sodium Chloride 1,000 mls @ 30 mls/hr 12/05/21 11:00 12/08/21 09:47 Sodium Chloride 0.9% 1000 Ml IV 01/04/22 10:59 30 mls/hr .Q24H NISHA Administration Ceftriaxone Sodium/Dextrose 1 g in 50 mls @ 100 mls/hr 12/05/21 22:00 12/08/21 21:05 Rocephin 1 Gm-D5w 50 Ml Bag IV 12/10/21 21:59 100 mls/hr Q24H22 NISHA Administration Insulin Glargine 30 unit 12/07/21 22:00 12/08/21 21:05 Insulin Glargine 1 Unit SQ 01/06/22 21:59 30 unit HS NISHA Administration Insulin Human Lispro 0 unit 12/05/21 16:21 12/09/21 08:04 Insulin Lispro 1 Unit SQ 01/04/22 16:20 10 unit UD PRN Administration HYPERGLYCEMIA Lorazepam 1 mg 12/05/21 09:02 12/06/21 20:53 Lorazepam 2 Mg/1 Ml 2 Mg Vial IV 01/04/22 09:01 1 mg Q4H PRN PRN Administration Anxiety/Sleep Lorazepam 1 mg 12/05/21 09:02 12/09/21 08:03 Lorazepam 1 Mg Tablet PO 01/04/22 09:01 1 mg Q4H PRN PRN Administration Anxiety/Sleep Morphine Sulfate 6 mg 12/05/21 13:07 12/08/21 21:06 Morphine Sulfate 10 Mg/Ml Injection IV 12/10/21 14:00 6 mg Q3H PRN PRN Administration PAIN Nicotine 21 mg 12/08/21 10:00 12/09/21 08:04 Nicotine 21 Mg/Patch Patch TOP 01/07/22 09:59 21 mg Q24H NISHA Administration Ondansetron HCl 4 mg 12/05/21 09:02 Ondansetron Hcl 4 Mg/2 Ml Vial IV 01/04/22 09:01 Q6H PRN PRN NAUSEA/VOMITING Throat Lozenges 15 mg 12/09/21 08:47 12/09/21 10:21 Benzocaine/Menthol 15 Mg Lozenge - Cepacol PO 01/08/22 08:59 15 mg UD PRN Administration COUGH Discontinued Medications Generic Name Dose Route Start Last Admin Trade Name Freq PRN Reason Stop Dose Admin Cefepime HCl Confirm 12/05/21 03:33 Cefepime Hcl 1 Gm Vial Administered 12/05/21 03:34 Dose 1 g .ROUTE .STK-MED ONE Enoxaparin Sodium 100 mg 12/05/21 06:15 12/05/21 06:45 Enoxaparin Sodium 100 Mg/Ml Syringe 1 mg/kg (100 mg) 12/05/21 06:16 100 mg SQ Administration ONCE ONE Enoxaparin Sodium Confirm 12/05/21 06:19 Enoxaparin Sodium 120 Mg/0.8 Ml Syringe Administered 12/05/21 06:20 Dose 120 mg SQ .STK-MED ONE Cefepime HCl 1 g/ Sodium 100 mls @ 200 mls/hr 12/05/21 03:02 12/05/21 03:49 Chloride IV 12/05/21 03:31 200 mls/hr STAT STA Administration Sodium Chloride Confirm 12/05/21 03:35 Sodium Chloride 0.9% 100 Ml Bag Administered 12/05/21 03:36 Dose 100 mls @ ud .ROUTE .STK-MED ONE Sodium Chloride 1,000 mls @ 999 mls/hr 12/05/21 03:48 12/05/21 06:05 Sodium Chloride 0.9% 1000 Ml IV 12/05/21 04:48 0 mls/hr .Q1H1M STA Infusion Sodium Chloride Confirm 12/05/21 03:58 Sodium Chloride 0.9% 1000 Ml Administered 12/05/21 03:59 Dose 1,000 mls @ ud .ROUTE .STK-MED ONE Sodium Chloride 1,000 mls @ 125 mls/hr 12/05/21 09:15 Sodium Chloride 0.9% 1000 Ml IV 01/04/22 09:14 .Q8H NISHA Remdesivir 100 mg/ Sodium 100 mls @ 100 mls/hr 12/06/21 10:00 12/09/21 10:37 Chloride IV 12/09/21 10:59 100 mls/hr Q24H NISHA Administration Remdesivir 200 mg/ Sodium 250 mls @ 125 mls/hr 12/05/21 10:00 12/05/21 09:36 Chloride IV 12/05/21 11:59 125 mls/hr ONCE ONE Administration Insulin Human Regular 100 unit 100 mls @ 10.48 mls/hr 12/06/21 12:01 12/07/21 03:03 / Sodium Chloride IV 01/05/22 12:00 Infused .Q9H33M PRN Titration DKA/HYPERGLYCEMIA Protocol 0.1 UNIT/KG/HR Insulin Glargine 20 unit 12/05/21 22:00 12/05/21 22:01 Insulin Glargine 1 Unit SQ 01/04/22 21:59 20 unit HS NISHA Administration Insulin Glargine 20 unit 12/07/21 03:15 12/07/21 03:20 Insulin Glargine 1 Unit SQ 12/07/21 03:16 20 unit QAM NISHA Administration Insulin Glargine 20 unit 12/07/21 22:00 Insulin Glargine 1 Unit SQ 01/06/22 21:59 HS NISHA Insulin Human Lispro 0 unit 12/05/21 09:02 12/05/21 15:56 Insulin Lispro 1 Unit SQ 01/04/22 09:01 11 unit UD PRN Administration HYPERGLYCEMIA Insulin Human Regular 10 unit 12/05/21 03:15 12/05/21 04:05 Insulin Regular, Human 1 Unit IV 12/05/21 03:16 10 unit STAT ONE Administration Insulin Human Regular Confirm 12/05/21 03:57 Insulin Regular, Human 1 Unit Administered 12/05/21 03:58 Dose 10 unit .ROUTE .STK-MED ONE Insulin Human Regular 10 unit 12/06/21 12:30 12/06/21 12:19 Insulin Regular, Human 1 Unit IV 12/06/21 12:31 10 unit ONCE ONE Administration Morphine Sulfate 4 mg 12/05/21 04:22 12/05/21 04:34 Morphine Sulfate 4 Mg/Ml Injection IV 12/05/21 04:23 4 mg STAT ONE Administration Morphine Sulfate Confirm 12/05/21 04:33 Morphine Sulfate 4 Mg/Ml Injection Administered 12/05/21 04:34 Dose 4 mg .ROUTE .STK-MED ONE Morphine Sulfate 4 mg 12/05/21 06:45 12/05/21 06:50 Morphine Sulfate 4 Mg/Ml Injection IV 12/05/21 06:46 4 mg STAT ONE Administration Morphine Sulfate Confirm 12/05/21 06:49 Morphine Sulfate 4 Mg/Ml Injection Administered 12/05/21 06:50 Dose 4 mg .ROUTE .STK-MED ONE Morphine Sulfate 10 mg 12/05/21 09:01 12/05/21 09:27 Morphine Sulfate 10 Mg/Ml Injection IV 12/10/21 09:00 10 mg Q3H PRN PRN Administration PAIN Ondansetron HCl 4 mg 12/05/21 04:22 12/05/21 04:34 Ondansetron Hcl 4 Mg/2 Ml Vial IV 12/05/21 04:23 4 mg STAT ONE Administration Ondansetron HCl Confirm 12/05/21 04:32 Ondansetron Hcl 4 Mg/2 Ml Vial Administered 12/05/21 04:33 Dose 4 mg .ROUTE .STK-MED ONE Pantoprazole Sodium 40 mg 12/05/21 04:23 12/05/21 04:34 Pantoprazole 40 Mg Vial IV 12/05/21 04:24 40 mg STAT ONE Administration Pantoprazole Sodium Confirm 12/05/21 04:32 Pantoprazole 40 Mg Vial Administered 12/05/21 04:33 Dose 40 mg IV .STK-MED ONE Intake & Output (Last 24 hours) 12/07/21 12/08/21 12/09/21 12/10/21 11:59 11:59 11:59 11:59 Intake Total 2040 1560 4516 Output Total 4450 3310 4475 Balance -6870 -2290 41 Weight 104.8 kg Microbiology Results (Last 24 hours) 12/05/21 03:35 Blood Aerobic Culture - Pending Laboratory Results (Last 24 hours) 12/09/21 12/09/21 12/09/21 11:38 07:53 05:14 WBC RBC Hgb Hct MCV MCH MCHC RDW Plt Count MPV D-Dimer 996 H* Sodium Potassium Chloride Carbon Dioxide Anion Gap BUN Creatinine Estimated GFR Glucose POC Glucometer 349 H 279 H Calcium Total Bilirubin AST ALT Alkaline Phosphatase Serum Total Protein Albumin 12/09/21 12/09/21 12/08/21 05:14 05:14 20:48 WBC 13.3 H RBC 5.17 Hgb 15.8 Hct 47.5 MCV 91.9 MCH 30.6 MCHC 33.3 RDW 12.8 Plt Count 190 MPV 11.4 H D-Dimer Sodium 130 L Potassium 4.0 Chloride 95 L Carbon Dioxide 29 Anion Gap 10.0 BUN 17 Creatinine 0.50 L Estimated GFR > 60.0 Glucose 335 H POC Glucometer 427 H Calcium 8.8 Total Bilirubin 0.30 AST 24 ALT 35 Alkaline Phosphatase 166 H Serum Total Protein 6.7 Albumin 3.2 L 12/08/21 16:16 WBC RBC Hgb Hct MCV MCH MCHC RDW Plt Count MPV D-Dimer Sodium Potassium Chloride Carbon Dioxide Anion Gap BUN Creatinine Estimated GFR Glucose POC Glucometer 493 H Calcium Total Bilirubin AST ALT Alkaline Phosphatase Serum Total Protein Albumin Orders (Last 24 hours) Category Date Time Status Vital Signs Q2H Care 12/08/21 18:00 Active Discharge Routine Discharge 12/09/21 Ordered CBC DAILY Lab 12/09/21 05:14 Completed CBC DAILY Lab 12/10/21 04:00 Ordered CBC DAILY Lab 12/11/21 04:00 Ordered CMP DAILY Lab 12/09/21 05:14 Completed CMP DAILY Lab 12/10/21 04:00 Ordered CMP DAILY Lab 12/11/21 04:00 Ordered D-DIMER QUANTITATIVE DAILY Lab 12/09/21 05:14 Completed D-DIMER QUANTITATIVE DAILY Lab 12/10/21 04:00 Ordered D-DIMER QUANTITATIVE DAILY Lab 12/11/21 04:00 Ordered POCT GLUCOSE Stat Lab 12/08/21 16:16 Completed POCT GLUCOSE Stat Lab 12/08/21 20:48 Completed POCT GLUCOSE Stat Lab 12/09/21 07:53 Completed POCT GLUCOSE Stat Lab 12/09/21 11:38 Completed Benzocaine/Menthol [Cepacol Sore Throat Lozenge] Med 12/09/21 08:47 Active 15 mg PO UD PRN Patient Care Notes (Last 24 hours) 12/09/21 13:05 Nursing Note by Sal Thompson ROUNDED WITH DR HILL, HE TALKED TO PT ABOUT DM MEDICATION, SEND IN METFORMIN AND GLIMEPIRIDE, DM EDUCATION, CHECK BS BID. 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 F/U IN 2 WEEKS Initialized on 12/09/21 13:05 - END OF NOTE 12/09/21 11:54 Nursing Note by Sal Thompson ASKED PT IF HE TAKES ANY DM MEDICATIONS AT HOME, HE DENIED, ASK IF HE CHECKS HIS SUGAR AT HOME, HE DENIED. HE DENIED HAVING DM. STATED "THIS ALL JUST STARTED WHEN I GOT THE BACTERIA IN MY CHEST" Initialized on 12/09/21 11:54 - END OF NOTE 12/09/21 10:53 Case Management Note by Melba Adamson PATIENT'S PHONE NOT WORKING IN ROOM. ATTEMPTED TO CALL PHONE NUMBER LISTED FOR PATIENT, HOPING IT WOULD BE A CELL PHONE- NO ANSWER. PRIMARY RN NOTIFIED SHE WILL NEED TO COMPLETE THE CASE MANAGEMENT/DC ASSESS D/T THIS RN NOT HAVING ANY ACCESS TO S/W PATIENT. SHE VERIFIED UNDERSTANDING. INSTRUCTED HER TO SPECIFICALLY MAKE SURE HE HAS DIABETIC EQUIPMENT/MEDS. SHE VERIFIED UNDERSTANDING Initialized on 12/09/21 10:53 - END OF NOTE 12/09/21 08:00 METER INSTALLER AND REMOVER Note by Barbi Sifuentes Patient has been on room air and Sats are 94% no shortness of breath. Initialized on 12/09/21 08:00 - END OF NOTE - Vitals & Intake/Output Vital Signs: Vital Signs Temperature 98.2 F 12/09/21 11:47 Pulse Rate 104 H 12/09/21 11:47 Respiratory Rate 16 12/09/21 13:00 Blood Pressure 148/69 12/09/21 11:47 O2 Sat by Pulse Oximetry 93 L 12/09/21 11:47 Intake & Output: Intake & Output 12/07/21 12/08/21 12/09/21 12/10/21 11:59 11:59 11:59 11:59 Intake Total 2040 1560 4516 Output Total 4450 3850 4475 Balance -2410 -2290 41 Weight 104.8 kg - Lab Result Diagrams: 12/09/21 05:14 12/09/21 05:14 Lab Results-Last 24 Hrs: Lab Results-Last 24 Hours 12/08/21 12/08/21 12/09/21 Range/Units 16:16 20:48 05:14 WBC 13.3 H (4.0-10.5) K/mm3 RBC 5.17 (4.1-5.6) M/mm3 Hgb 15.8 (12.5-18.0) gm/dl Hct 47.5 (42-50) % MCV 91.9 (78-100) fl MCH 30.6 (26-32) pg MCHC 33.3 (32-36) g/dl RDW 12.8 (11.5-14.0) % Plt Count 190 (150-450) K/mm3 MPV 11.4 H (7.5-11.0) fl D-Dimer (215-500) ng/mL Sodium (137-145) mmol/L Potassium (3.5-5.1) mmol/L Chloride (98-107) mmol/L Carbon Dioxide (22-30) mmol/L Anion Gap (5-15) MEQ/L BUN (9-20) mg/dL Creatinine (0.66-1.25) mg/dL Estimated GFR ML/MIN Glucose (74-106) mg/dL POC Glucometer 493 H 427 H (74 to 106) mg/dL Calcium (8.4-10.2) mg/dL Total Bilirubin (0.2-1.3) mg/dL AST (17-59) U/L ALT (0-50) U/L Alkaline Phosphatase (38-126) U/L Serum Total Protein (6.3-8.2) g/dL Albumin (3.5-5.0) g/dL 12/09/21 12/09/21 12/09/21 Range/Units 05:14 05:14 07:53 WBC (4.0-10.5) K/mm3 RBC (4.1-5.6) M/mm3 Hgb (12.5-18.0) gm/dl Hct (42-50) % MCV (78-100) fl MCH (26-32) pg MCHC (32-36) g/dl RDW (11.5-14.0) % Plt Count (150-450) K/mm3 MPV (7.5-11.0) fl D-Dimer 996 H* (215-500) ng/mL Sodium 130 L (137-145) mmol/L Potassium 4.0 (3.5-5.1) mmol/L Chloride 95 L (98-107) mmol/L Carbon Dioxide 29 (22-30) mmol/L Anion Gap 10.0 (5-15) MEQ/L BUN 17 (9-20) mg/dL Creatinine 0.50 L (0.66-1.25) mg/dL Estimated GFR > 60.0 ML/MIN Glucose 335 H (74-106) mg/dL POC Glucometer 279 H (74 to 106) mg/dL Calcium 8.8 (8.4-10.2) mg/dL Total Bilirubin 0.30 (0.2-1.3) mg/dL AST 24 (17-59) U/L ALT 35 (0-50) U/L Alkaline Phosphatase 166 H (38-126) U/L Serum Total Protein 6.7 (6.3-8.2) g/dL Albumin 3.2 L (3.5-5.0) g/dL 12/09/21 Range/Units 11:38 WBC (4.0-10.5) K/mm3 RBC (4.1-5.6) M/mm3 Hgb (12.5-18.0) gm/dl Hct (42-50) % MCV (78-100) fl MCH (26-32) pg MCHC (32-36) g/dl RDW (11.5-14.0) % Plt Count (150-450) K/mm3 MPV (7.5-11.0) fl D-Dimer (215-500) ng/mL Sodium (137-145) mmol/L Potassium (3.5-5.1) mmol/L Chloride (98-107) mmol/L Carbon Dioxide (22-30) mmol/L Anion Gap (5-15) MEQ/L BUN (9-20) mg/dL Creatinine (0.66-1.25) mg/dL Estimated GFR ML/MIN Glucose (74-106) mg/dL POC Glucometer 349 H (74 to 106) mg/dL Calcium (8.4-10.2) mg/dL Total Bilirubin (0.2-1.3) mg/dL AST (17-59) U/L ALT (0-50) U/L Alkaline Phosphatase (38-126) U/L Serum Total Protein (6.3-8.2) g/dL Albumin (3.5-5.0) g/dL Micro Results-Entire Visit: Microbiology 12/05/21 03:35 Blood Culture Gram Stain - Final Blood Blood Culture - Preliminary 12/05/21 03:30 Blood Culture Gram Stain - Final Blood Blood Culture - Final Accuchecks Date 12/09/21 Time 07:58 - Procedures and Test Procedures and Tests throughout Hospitalization: Therapy Orders & Screens 12/05/21 08:59 Smoking Cessation Education ONCE Comment: Diagnosis: COVID Pneumonia Smoking Status: Current every day smoker How long have you smoked: 40+ years Have you smoked in the past 12 months: Yes Do you dip or chew tobacco: No 12/05/21 11:09 Respiratory Therapy Consult ROUTINE Comment: Reason For Exam: Diagnosis: COVID Pneumonia 12/05/21 13:09 Oxygen Oxymizer LPM 8 lpm Comment: Diagnosis: COVID Pneumonia 12/05/21 13:28 Flutter Therapy UD Comment: Diagnosis: COVID Pneumonia 12/06/21 15:29 Oxygen Nasal Cannula 3 lpm Comment: Diagnosis: COVID Pneumonia Discharge Exam General Appearance: no apparent distress, alert Neurologic Exam: alert, oriented x 3, cooperative, normal mood/affect, nml cerebellar function, sensation nml, No motor deficits Eye Exam: PERRL, EOMI, eyes nml inspection Ears, Nose, Throat Exam: normal ENT inspection, pharynx normal, moist mucous membranes Neck Exam: normal inspection, non-tender, supple, full range of motion Respiratory Exam: normal breath sounds, lungs clear, No respiratory distress Cardiovascular Exam: regular rate/rhythm, normal heart sounds Gastrointestinal/Abdomen Exam: soft, No tenderness, No mass Male Genitalia Exam: deferred Rectal Exam: deferred Back Exam: normal inspection, normal range of motion, No CVA tenderness, No vertebral tenderness Extremity Exam: normal inspection, normal range of motion Skin Exam: normal color, warm, dry Final Diagnosis/Problem List - Final Discharge Diagnosis/Problem (1) Pneumonia due to COVID-19 virus Current Visit: Yes Status: Acute Code(s): U07.1 - COVID-19; J12.82 - PNEUMONIA DUE TO CORONAVIRUS DISEASE 2019 (2) Uncontrolled diabetes mellitus Current Visit: Yes Status: Acute Assessment & Plan: Medication Report Acetaminophen (Acetaminophen 500 Mg Tablet) 500 - 1,000 mg PO Q4H PRN PRN PRN Reason: Temp > 100.4 Orally Stop: 01/04/22 09:01 Last Admin: 12/07/21 14:51 Dose: 500 mg Documented by: MERA VALENZUELA PAIN Document 12/07/21 14:51 EK (Rec: 12/07/21 14:52 EK [id number]) Reassesment Location Head Pain Scale Used 0-10 Pain Scale Pain Intensity (0-10) 2 Re-Assess: Pain Reassessment Document 12/07/21 15:21 AWG (Rec: 12/07/21 15:24 AWG [id number]) Pain Description Pain Scale Used 0-10 Pain Scale Pain Intensity (0-10) 0 Baricitinib (Baricitinib 2 Mg Tablet) 4 mg PO DAILY [facility] Stop: 12/18/21 10:01 Last Admin: 12/09/21 08:03 Dose: 4 mg Documented by: JESUS Chlorphenir/Hydrocodone Polistirex (Hydrocodone/Chlorphen P-Stirex 1 Ml Angie.Er.12h) 5 ml PO [id number] PRN PRN Reason: COUGH Stop: 01/04/22 09:01 Last Admin: 12/09/21 07:44 Dose: 5 ml Documented by: JESUS Re-Assess: Pain Reassessment Document 12/09/21 08:14 AR (Rec: 12/09/21 12:01 AR [id number]) Pain Description FLACC Score 0 Dexamethasone Sodium Phosphate (Dexamethasone Sod Phosphate 10 Mg/Ml) 8 mg IV DAILY [facility] Stop: 12/15/21 09:59 Last Admin: 12/09/21 08:03 Dose: 8 mg Documented by: JESUS Enoxaparin Sodium (Enoxaparin Sodium 60 Mg/0.6 Ml Syringe) 60 mg SQ DAILY [facility] Stop: 01/05/22 09:59 Last Admin: 12/09/21 08:03 Dose: 60 mg Documented by: JESUS Sodium Chloride (Sodium Chloride 0.9% 1000 Ml) 1,000 mls @ 30 mls/hr IV .Q24H [facility] Stop: 01/04/22 10:59 Last Admin: 12/08/21 09:47 Dose: 30 mls/hr Documented by: DARRIUS Infusion/Titration Document 12/08/21 09:47 JH (Rec: 12/08/21 09:47 JH [id number]) Dosing & Rate IV Rate 30 Increase/Decrease Started/Running Cumulative Dose Not Applicable IV Intake Container Volume 1,000 Cumulative Intake (Rx) 1,995 Volume Adjustment/Waste 0 Ceftriaxone Sodium/Dextrose (Rocephin 1 Gm-D5w 50 Ml Bag) 1 g in 50 mls @ 100 mls/hr IV Q24H22 [facility] Stop: 12/10/21 21:59 Last Admin: 12/08/21 21:05 Dose: 100 mls/hr Documented by: CARLOS Insulin Glargine (Insulin Glargine 1 Unit) 30 unit SQ HS [facility] Stop: 01/06/22 21:59 Last Admin: 12/08/21 21:05 Dose: 30 unit Documented by: CARLOS Comments: BS 427 Insulin Human Lispro (Insulin Lispro 1 Unit) 0 unit SQ UD PRN PRN Reason: HYPERGLYCEMIA Stop: 01/04/22 16:20 Last Admin: 12/09/21 08:04 Dose: 10 unit Documented by: JESUS MAR GLUCOSE CHECK Document 12/09/21 08:04 AR (Rec: 12/09/21 08:04 AR [id number]) POCT Blood Glucose POCT Glucose (Last Value) 279 mg/dL (74 to 106) H Lorazepam (Lorazepam 2 Mg/1 Ml 2 Mg Vial) 1 mg IV Q4H PRN PRN PRN Reason: Anxiety/Sleep Stop: 01/04/22 09:01 Last Admin: 12/06/21 20:53 Dose: 1 mg Documented by: AWALTERS Lorazepam (Lorazepam 1 Mg Tablet) 1 mg PO Q4H PRN PRN PRN Reason: Anxiety/Sleep Stop: 01/04/22 09:01 Last Admin: 12/09/21 08:03 Dose: 1 mg Documented by: JESUS Morphine Sulfate (Morphine Sulfate 10 Mg/Ml Injection) 6 mg IV Q3H PRN PRN PRN Reason: PAIN Stop: 12/10/21 14:00 Last Admin: 12/08/21 21:06 Dose: 6 mg Documented by: CARLOS MAR PAIN Document 12/08/21 21:06 MG (Rec: 12/08/21 21:07 MG [id number]) Reassesment Location Chest Pain Scale Used 0-10 Pain Scale Pain Intensity (0-10) 8 Comment CP from coughing Re-Assess: Pain Reassessment Document 12/08/21 21:36 MG (Rec: 12/09/21 01:31 MG [id number]) Pain Description Pain Scale Used FLACC Comment Sleeping Nicotine (Nicotine 21 Mg/Patch Patch) 21 mg TOP Q24H NISHA Stop: 01/07/22 09:59 Last Admin: 12/09/21 08:04 Dose: 21 mg Documented by: JESUS Throat Lozenges (Benzocaine/Menthol 15 Mg Lozenge - Cepacol) 15 mg PO UD PRN PRN Reason: COUGH Stop: 01/08/22 08:59 Last Admin: 12/09/21 10:21 Dose: 15 mg Documented by: JESUS Discontinued Medications Enoxaparin Sodium (Enoxaparin Sodium 100 Mg/Ml Syringe) 100 mg 1 mg/kg (100 mg) SQ ONCE ONE Stop: 12/05/21 06:16 Last Admin: 12/05/21 06:45 Dose: 100 mg Documented by: [email or web address] Medication Administration Document 12/05/21 06:45 KF (Rec: 12/05/21 06:45 KF [id number]) Type of Injection IM/SQ Injection Yes Antibiotic IM Injection No Injection Site MAR Injection Site Right Lower Quad Cefepime HCl 1 g/ Sodium (Chloride) 100 mls @ 200 mls/hr IV STAT STA Stop: 12/05/21 03:31 Last Admin: 12/05/21 03:49 Dose: 200 mls/hr Documented by: ARETHA Med Admininistration (IV,IVP) Document 12/05/21 03:49 ASC (Rec: 12/05/21 03:50 ASC [id number]) Type of Administration Initial IV Push No Sodium Chloride (Sodium Chloride 0.9% 1000 Ml) 1,000 mls @ 999 mls/hr IV .Q1H1M STA Stop: 12/05/21 04:48 Last Infusion: 12/05/21 06:05 Dose: 0 mls/hr Documented by: PEDRO Infusion/Titration Document 12/05/21 06:05 KF (Rec: 12/05/21 06:05 KF [id number]) Dosing & Rate IV Rate 0 Increase/Decrease Paused Cumulative Dose Not Applicable IV Intake Container Volume 1,000 Infusion Intake 0 Cumulative Intake (Bag) 0 Cumulative Intake (Rx) 0 Volume Adjustment/Waste 0 Remdesivir 100 mg/ Sodium (Chloride) 100 mls @ 100 mls/hr IV Q24H [facility] Stop: 12/09/21 10:59 Last Admin: 12/09/21 10:37 Dose: 100 mls/hr Documented by: JESUS Remdesivir 200 mg/ Sodium (Chloride) 250 mls @ 125 mls/hr IV ONCE ONE Stop: 12/05/21 11:59 Last Admin: 12/05/21 09:36 Dose: 125 mls/hr Documented by: KAITLYN Insulin Human Regular 100 unit (/ Sodium Chloride) 100 mls @ 10.48 mls/hr IV .Q9H33M PRN; Protocol PRN Reason: DKA/HYPERGLYCEMIA Stop: 01/05/22 12:00 Last Titration: 12/07/21 03:03 Dose: 0.14 unit/kg/hr, 15 mls/hr Documented by: STEPHANIE Infusion/Titration Document 12/07/21 03:03 AW (Rec: 12/07/21 03:04 AW [id number]) Dosing & Rate Titration Dose 0.14 IV Rate 15 Increase/Decrease Infused Cumulative Dose 192 IV Intake Container Volume 0 Infusion Intake 17 Cumulative Intake (Bag) 100 Cumulative Intake (Rx) 192 Volume Adjustment/Waste 0 Insulin Glargine (Insulin Glargine 1 Unit) 20 unit SQ HS [facility] Stop: 01/04/22 21:59 Last Admin: 12/05/21 22:01 Dose: 20 unit Documented by: STEPHANIE [facility] Injection Site Document 12/05/21 22:01 AW (Rec: 12/05/21 22:01 AW [id number]) Injection Site MAR Injection Site Left Deltoid Insulin Glargine (Insulin Glargine 1 Unit) 20 unit SQ QAM NISHA Stop: 12/07/21 03:16 Last Admin: 12/07/21 03:20 Dose: 20 unit Documented by: STEPHANIE VALENZUELA Injection Site Document 12/07/21 03:20 AW (Rec: 12/07/21 03:20 AW [id number]) Injection Site MAR Injection Site Left Upper Quad Insulin Human Lispro (Insulin Lispro 1 Unit) 0 unit SQ UD PRN PRN Reason: HYPERGLYCEMIA Stop: 01/04/22 09:01 Last Admin: 12/05/21 15:56 Dose: 11 unit Documented by: KAITLYN VALENZUELA GLUCOSE CHECK Document 12/05/21 15:56 RM (Rec: 12/05/21 15:57 RM [id number]) POCT Blood Glucose POCT Glucose (Last Value) 381 mg/dL (74 to 106) H MAR Injection Site Document 12/05/21 15:56 RM (Rec: 12/05/21 15:57 RM [id number]) Injection Site MAR Injection Site Right Lower Quad Insulin Human Regular (Insulin Regular, Human 1 Unit) 10 unit IV STAT ONE Stop: 12/05/21 03:16 Last Admin: 12/05/21 04:05 Dose: 10 unit Documented by: ARETHA Med Admininistration (IV,IVP) Document 12/05/21 04:05 ASC (Rec: 12/05/21 04:06 ASC [id number]) Type of Administration Initial IV Push Yes Medication Administration Document 12/05/21 04:05 ASC (Rec: 12/05/21 04:06 ASC [id number]) Type of Injection IM/SQ Injection No Antibiotic IM Injection No MAR GLUCOSE CHECK Document 12/05/21 04:05 ASC (Rec: 12/05/21 04:06 ASC [id number]) POCT Blood Glucose POCT Glucose (Last Value) 370 Insulin Human Regular (Insulin Regular, Human 1 Unit) 10 unit IV ONCE ONE Stop: 12/06/21 12:31 Last Admin: 12/06/21 12:19 Dose: 10 unit Documented by: KAMERON [facility] GLUCOSE CHECK Document 12/06/21 12:19 MW (Rec: 12/06/21 12:20 MW [id number]) POCT Blood Glucose POCT Glucose (Last Value) 413 mg/dL (74 to 106) H Morphine Sulfate (Morphine Sulfate 4 Mg/Ml Injection) 4 mg IV STAT ONE Stop: 12/05/21 04:23 Last Admin: 12/05/21 04:34 Dose: 4 mg Documented by: ARETHA Med Admininistration (IV,IVP) Document 12/05/21 04:34 ASC (Rec: 12/05/21 04:35 ASC [id number]) Type of Administration Initial IV Push No IV Push-Addtl Different Drug Yes [facility] PAIN Document 12/05/21 04:34 ASC (Rec: 12/05/21 04:35 ASC [id number]) Reassesment Pain Scale Used 0-10 Pain Scale Pain Intensity (0-10) 7 Morphine Sulfate (Morphine Sulfate 4 Mg/Ml Injection) 4 mg IV STAT ONE Stop: 12/05/21 06:46 Last Admin: 12/05/21 06:50 Dose: 4 mg Documented by: PEDRO Med Admininistration (IV,IVP) Document 12/05/21 06:50 KF (Rec: 12/05/21 06:50 KF [id number]) Type of Administration Initial IV Push No IV Push-Addtl Same Drug >30min Yes [facility] PAIN Document 12/05/21 06:50 KF (Rec: 12/05/21 06:50 KF [id number]) Reassesment Location Chest Pain Scale Used 0-10 Pain Scale Pain Intensity (0-10) 8 Management Goal (0-10) 6 Morphine Sulfate (Morphine Sulfate 10 Mg/Ml Injection) 10 mg IV Q3H PRN PRN PRN Reason: PAIN Stop: 12/10/21 09:00 Last Admin: 12/05/21 09:27 Dose: 10 mg Documented by: KAITLYN [facility] PAIN Document 12/05/21 09:27 RM (Rec: 12/05/21 09:28 RM [id number]) Reassesment Pain Site Right Location Chest Pain Scale Used 0-10 Pain Scale Pain Intensity (0-10) 10 Re-Assess: Pain Reassessment Document 12/05/21 09:57 RM (Rec: 12/05/21 10:14 RM [id number]) Pain Description Pain Scale Used Elliott-Allan Faces Pain Scale Pain Intensity (0-10) 0 Comment Asleep Ondansetron HCl (Ondansetron Hcl 4 Mg/2 Ml Vial) 4 mg IV STAT ONE Stop: 12/05/21 04:23 Last Admin: 12/05/21 04:34 Dose: 4 mg Documented by: ASHALO2CLOUD Med Admininistration (IV,IVP) Document 12/05/21 04:34 ASC (Rec: 12/05/21 04:34 ASC [id number]) Type of Administration Initial IV Push No IV Push-Addtl Different Drug Yes Pantoprazole Sodium (Pantoprazole 40 Mg Vial) 40 mg IV STAT ONE Stop: 12/05/21 04:24 Last Admin: 12/05/21 04:34 Dose: 40 mg Documented by: [employer] Med Admininistration (IV,IVP) Document 12/05/21 04:34 ASC (Rec: 12/05/21 04:34 ASC [id number]) Type of Administration Initial IV Push No IV Push-Addtl Different Drug Yes Medication Adminisitration Report Acetaminophen (Acetaminophen 500 Mg Tablet) 500 - 1,000 mg PO Q4H PRN PRN PRN Reason: Temp > 100.4 Orally Stop: 01/04/22 09:01 Last Admin: 12/07/21 14:51 Dose: 500 mg Documented by: MERA VALENZUELA PAIN Document 12/07/21 14:51 EK (Rec: 12/07/21 14:52 EK [id number]) Reassesment Location Head Pain Scale Used 0-10 Pain Scale Pain Intensity (0-10) 2 Re-Assess: Pain Reassessment Document 12/07/21 15:21 AWG (Rec: 12/07/21 15:24 AWG [id number]) Pain Description Pain Scale Used 0-10 Pain Scale Pain Intensity (0-10) 0 Acetaminophen (Acetaminophen 650 Mg Supp.Rect) 650 mg TX Q4H PRN PRN PRN Reason: Temp > 100.4 Orally Stop: 01/04/22 09:01 Baricitinib (Baricitinib 2 Mg Tablet) 4 mg PO DAILY NISHA Stop: 12/18/21 10:01 Last Admin: 12/09/21 08:03 Dose: 4 mg Documented by: Admin: 12/08/21 09:45 Dose: 4 mg Documented by: DARRIUS Teach Baricitinib Document 12/08/21 09:45 JH (Rec: 12/08/21 09:45 JH [id number]) Teaching Needs Preferences One-on-One Instruction,Written Admin: 12/07/21 10:27 Dose: 4 mg Documented by: Admin: 12/06/21 08:29 Dose: 4 mg Documented by: KAMERON Teach Baricitinib Document 12/06/21 08:29 MW (Rec: 12/06/21 08:29 MW [id number]) Teaching Needs Preferences One-on-One Instruction Barriers to Learning Motivation Readiness To Learn Good Baricitinib Fact Sheet Fact Sheet for Patients, Parents and Yes Caregivers given prior to the patient recieving Baricitinib: Method Discussion Response to Teaching Verbalize understanding Teaching Recipient Patient Alternatives Informed of alternatives to receiving Yes authorized Baricitinib Method Discussion Response to Teaching Verbalize understanding Teaching Recipient Patient Approved Drug Informed that Baricitinib is an approved Yes drug that is authorized for the unapproved use under this Emergency Use Authorization Method Discussion Response to Teaching Verbalize understanding Teaching Recipient Patient Admin: 12/05/21 09:25 Dose: 4 mg Documented by: KAITLYN Teach Baricitinib Document 12/05/21 09:25 RM (Rec: 12/05/21 09:27 RM [id number]) Teaching Needs Preferences One-on-One Instruction Barriers to Learning Motivation Readiness To Learn Good Baricitinib Fact Sheet Fact Sheet for Patients, Parents and Yes Caregivers given prior to the patient recieving Baricitinib: Method Discussion Response to Teaching Verbalize understanding Teaching Recipient Patient Alternatives Informed of alternatives to receiving Yes authorized Baricitinib Method Discussion Response to Teaching Verbalize understanding Teaching Recipient Patient Approved Drug Informed that Baricitinib is an approved Yes drug that is authorized for the unapproved use under this Emergency Use Authorization Method Discussion Response to Teaching Verbalize understanding Teaching Recipient Patient Chlorphenir/Hydrocodone Polistirex (Hydrocodone/Chlorphen P-Stirex 1 Ml Angie.Er.12h) 5 ml PO [id number] PRN PRN Reason: COUGH Stop: 01/04/22 09:01 Last Admin: 12/09/21 07:44 Dose: 5 ml Documented by: JESUS Re-Assess: Pain Reassessment Document 12/09/21 08:14 AR (Rec: 12/09/21 12:01 AR [id number]) Pain Description FLACC Score 0 Admin: 12/08/21 15:53 Dose: 5 ml Documented by: DARRIUS VALENZUELA PAIN Document 12/08/21 15:53 JM (Rec: 12/08/21 15:54 JM [id number]) Reassesment Pain Scale Used 0-10 Pain Scale Re-Assess: Pain Reassessment Document 12/08/21 16:23 JM (Rec: 12/08/21 16:40 JM [id number]) Pain Description Pain Scale Used 0-10 Pain Scale Admin: 12/08/21 02:57 Dose: 5 ml Documented by: STEPHANIE VALENZUELA PAIN Document 12/08/21 02:57 AW (Rec: 12/08/21 02:58 AW [id number]) Reassesment Comment for cough Re-Assess: Pain Reassessment Document 12/08/21 03:27 JM (Rec: 12/08/21 07:25 JM [id number]) Pain Description Pain Scale Used 0-10 Pain Scale Admin: 12/07/21 14:51 Dose: 5 ml Documented by: MERA VALENZUELA PAIN Document 12/07/21 14:51 EK (Rec: 12/07/21 14:51 EK [id number]) Reassesment Pain Scale Used 0-10 Pain Scale Pain Intensity (0-10) 2 Comment COUGH Re-Assess: Pain Reassessment Document 12/07/21 15:21 AWG (Rec: 12/07/21 15:24 AWG [id number]) Pain Description Pain Scale Used 0-10 Pain Scale Pain Intensity (0-10) 0 Admin: 12/06/21 17:07 Dose: 5 ml Documented by: KAMERON Re-Assess: Pain Reassessment Document 12/06/21 17:37 MW (Rec: 12/06/21 17:57 MW [id number]) Pain Description Comment Dry, nonproductive cough has subsided at this time. Admin: 12/05/21 23:09 Dose: 5 ml Documented by: STEPHANIE VALENZUELA PAIN Document 12/05/21 23:09 AW (Rec: 12/05/21 23:09 AW [id number]) Reassesment Comment for cough Re-Assess: Pain Reassessment Document 12/05/21 23:39 AW (Rec: 12/06/21 01:58 AW [id number]) Pain Description Comment for cough Dexamethasone Sodium Phosphate (Dexamethasone Sod Phosphate 10 Mg/Ml) 8 mg IV DAILY NISHA Stop: 12/15/21 09:59 Last Admin: 12/09/21 08:03 Dose: 8 mg Documented by: Admin: 12/08/21 09:45 Dose: 8 mg Documented by: Admin: 12/07/21 10:27 Dose: 8 mg Documented by: Admin: 12/06/21 08:30 Dose: 8 mg Documented by: Admin: 12/05/21 09:25 Dose: 8 mg Documented by: KAITLYN Enoxaparin Sodium (Enoxaparin Sodium 60 Mg/0.6 Ml Syringe) 60 mg SQ DAILY NISHA Stop: 01/05/22 09:59 Last Admin: 12/09/21 08:03 Dose: 60 mg Documented by: Admin: 12/08/21 09:45 Dose: 60 mg Documented by: DARRIUS VALENZUELA Injection Site Document 12/08/21 09:45 JM (Rec: 12/08/21 09:45 JM [id number]) Injection Site MAR Injection Site Left Upper Quad Admin: 12/07/21 10:27 Dose: 60 mg Documented by: FRANK VALENZUELA Injection Site Document 12/07/21 10:27 AWG (Rec: 12/07/21 10:27 AWG [id number]) Injection Site MAR Injection Site Left Lower Quad Admin: 12/06/21 08:29 Dose: 60 mg Documented by: KAMERON VALENZUELA Injection Site Document 12/06/21 08:29 MW (Rec: 12/06/21 08:29 MW [id number]) Injection Site MAR Injection Site Left Lower Quad Sodium Chloride (Sodium Chloride 0.9% 1000 Ml) 1,000 mls @ 30 mls/hr IV .Q24H NISHA Stop: 01/04/22 10:59 Last Admin: 12/08/21 09:47 Dose: 30 mls/hr Documented by: DARRIUS Infusion/Titration Document 12/08/21 09:47 JH (Rec: 12/08/21 09:47 JH [id number]) Dosing & Rate IV Rate 30 Increase/Decrease Started/Running Cumulative Dose Not Applicable IV Intake Container Volume 1,000 Cumulative Intake (Rx) 1,995 Volume Adjustment/Waste 0 Admin: 12/08/21 07:25 Dose: Not Given Documented by: DARRIUS Non-Admin Reason: Not given on previous shift Infusion: 12/08/21 06:13 Dose: 30 mls/hr Documented by: DARRIUS Infusion/Titration Document 12/08/21 06:13 JH (Rec: 12/08/21 09:47 JH [id number]) Dosing & Rate IV Rate 30 Increase/Decrease Infused Cumulative Dose Not Applicable IV Intake Container Volume 0 Infusion Intake 1,000 Cumulative Intake (Bag) 1,000 Cumulative Intake (Rx) 1,995 Volume Adjustment/Waste 0 Admin: 12/06/21 20:53 Dose: 30 mls/hr Documented by: STEPHANIE Infusion/Titration Document 12/06/21 20:53 AW (Rec: 12/06/21 20:53 AW [id number]) Dosing & Rate IV Rate 30 Increase/Decrease Started/Running Cumulative Dose Not Applicable IV Intake Container Volume 1,000 Cumulative Intake (Rx) 995 Volume Adjustment/Waste 0 Infusion: 12/06/21 20:53 Dose: 30 mls/hr Documented by: STEPHANIE Infusion/Titration Document 12/06/21 20:53 AW (Rec: 12/06/21 20:53 AW [id number]) Dosing & Rate IV Rate 30 Increase/Decrease Infused Cumulative Dose Not Applicable IV Intake Container Volume 0 Infusion Intake 995 Cumulative Intake (Bag) 995 Cumulative Intake (Rx) 995 Volume Adjustment/Waste 5 Admin: 12/05/21 11:43 Dose: 30 mls/hr Documented by: KAITLYN Infusion/Titration Document 12/05/21 11:43 RM (Rec: 12/05/21 11:43 RM [id number]) Dosing & Rate IV Rate 30 Increase/Decrease Started Cumulative Dose Not Applicable IV Intake Container Volume 1,000 Volume Adjustment/Waste 0 Ceftriaxone Sodium/Dextrose (Rocephin 1 Gm-D5w 50 Ml Bag) 1 g in 50 mls @ 100 mls/hr IV Q24H22 NISHA Stop: 12/10/21 21:59 Last Admin: 12/08/21 21:05 Dose: 100 mls/hr Documented by: Admin: 12/07/21 22:08 Dose: 100 mls/hr Documented by: Admin: 12/06/21 20:53 Dose: 100 mls/hr Documented by: Admin: 12/05/21 22:02 Dose: 100 mls/hr Documented by: STEPHANIE Insulin Glargine (Insulin Glargine 1 Unit) 30 unit SQ HS NISHA Stop: 01/06/22 21:59 Last Admin: 12/08/21 21:05 Dose: 30 unit Documented by: CARLOS Comments: IGLESIA 427 Admin: 12/07/21 22:08 Dose: 30 unit Documented by: STEPHANIE Insulin Human Lispro (Insulin Lispro 1 Unit) 0 unit SQ UD PRN PRN Reason: HYPERGLYCEMIA Stop: 01/04/22 16:20 Last Admin: 12/09/21 08:04 Dose: 10 unit Documented by: JESUS VALENZUELA GLUCOSE CHECK Document 12/09/21 08:04 AR (Rec: 12/09/21 08:04 AR [id number]) POCT Blood Glucose POCT Glucose (Last Value) 279 mg/dL (74 to 106) H Admin: 12/08/21 21:06 Dose: 17 unit Documented by: CARLOS Comments: IGLESIA 427 NICOLAS GLUCOSE CHECK Document 12/08/21 21:06 MG (Rec: 12/08/21 21:06 MG [id number]) POCT Blood Glucose POCT Glucose (Last Value) 427 mg/dL (74 to 106) H Admin: 12/08/21 16:22 Dose: 20 unit Documented by: ADRRIUS VALENZUELA GLUCOSE CHECK Document 12/08/21 16:22 JH (Rec: 12/08/21 16:22 JH [id number]) POCT Blood Glucose POCT Glucose (Last Value) 493 mg/dL (74 to 106) H Admin: 12/08/21 11:50 Dose: 10 unit Documented by: DARRIUS VALENZUELA GLUCOSE CHECK Document 12/08/21 11:50 JH (Rec: 12/08/21 11:50 JH [id number]) POCT Blood Glucose POCT Glucose (Last Value) 300 mg/dL (74 to 106) H MAR Injection Site Document 12/08/21 11:50 JH (Rec: 12/08/21 11:50 JH [id number]) Injection Site MAR Injection Site Left Deltoid Admin: 12/08/21 07:34 Dose: 10 unit Documented by: DARRIUS VALENZUELA GLUCOSE CHECK Document 12/08/21 07:34 JH (Rec: 12/08/21 07:35 JH [id number]) POCT Blood Glucose POCT Glucose (Last Value) 429 mg/dL (74 to 106) H Admin: 12/07/21 22:08 Dose: 17 unit Documented by: STEPHANIE VALENZUELA GLUCOSE CHECK Document 12/07/21 22:08 AW (Rec: 12/07/21 22:08 AW [id number]) POCT Blood Glucose POCT Glucose (Last Value) 429 mg/dL (74 to 106) H JAN Injection Site Document 12/07/21 22:08 AW (Rec: 12/07/21 22:08 AW [id number]) Injection Site MAR Injection Site Left Lower Quad Admin: 12/07/21 16:44 Dose: 17 unit Documented by: FRANK VALENZUELA GLUCOSE CHECK Document 12/07/21 16:44 AWG (Rec: 12/07/21 16:44 AWG [id number]) POCT Blood Glucose POCT Glucose (Last Value) 331 mg/dL (74 to 106) H Admin: 12/07/21 12:09 Dose: 12 unit Documented by: FRANK VALENZUELA GLUCOSE CHECK Document 12/07/21 12:09 AWG (Rec: 12/07/21 12:10 AWG [id number]) POCT Blood Glucose POCT Glucose (Last Value) 331 mg/dL (74 to 106) H Admin: 12/07/21 08:13 Dose: 10 unit Documented by: FRANK VALENZUELA GLUCOSE CHECK Document 12/07/21 08:13 AWG (Rec: 12/07/21 08:13 AWG [id number]) POCT Blood Glucose POCT Glucose (Last Value) 251 mg/dL (74 to 106) H Admin: 12/06/21 08:34 Dose: 17 unit Documented by: KAMERON VALENZUELA GLUCOSE CHECK Document 12/06/21 08:34 MW (Rec: 12/06/21 08:34 MW [id number]) POCT Blood Glucose POCT Glucose (Last Value) 431 mg/dL (74 to 106) H JAN Injection Site Document 12/06/21 08:34 MW (Rec: 12/06/21 08:34 MW [id number]) Injection Site MAR Injection Site Left Deltoid Admin: 12/05/21 22:01 Dose: 12 unit Documented by: STEPHANIE [facility] GLUCOSE CHECK Document 12/05/21 22:01 AW (Rec: 12/05/21 22:02 AW [id number]) POCT Blood Glucose POCT Glucose (Last Value) 333 mg/dL (74 to 106) H JAN Injection Site Document 12/05/21 22:01 AW (Rec: 12/05/21 22:02 AW [id number]) Injection Site MAR Injection Site Left Deltoid Lorazepam (Lorazepam 2 Mg/1 Ml 2 Mg Vial) 1 mg IV Q4H PRN PRN PRN Reason: Anxiety/Sleep Stop: 01/04/22 09:01 Last Admin: 12/06/21 20:53 Dose: 1 mg Documented by: STEPHANIE Lorazepam (Lorazepam 1 Mg Tablet) 1 mg PO Q4H PRN PRN PRN Reason: Anxiety/Sleep Stop: 01/04/22 09:01 Last Admin: 12/09/21 08:03 Dose: 1 mg Documented by: Admin: 12/08/21 15:53 Dose: 1 mg Documented by: Admin: 12/08/21 09:45 Dose: 1 mg Documented by: Admin: 12/07/21 06:33 Dose: 1 mg Documented by: Admin: 12/06/21 17:07 Dose: 1 mg Documented by: KAMERON Morphine Sulfate (Morphine Sulfate 10 Mg/Ml Injection) 6 mg IV Q3H PRN PRN PRN Reason: PAIN Stop: 12/10/21 14:00 Last Admin: 12/08/21 21:06 Dose: 6 mg Documented by: CARLOS [facility] PAIN Document 12/08/21 21:06 MG (Rec: 12/08/21 21:07 MG [id number]) Reassesment Location Chest Pain Scale Used 0-10 Pain Scale Pain Intensity (0-10) 8 Comment CP from coughing Re-Assess: Pain Reassessment Document 12/08/21 21:36 MG (Rec: 12/09/21 01:31 MG [id number]) Pain Description Pain Scale Used FLACC Comment Sleeping Admin: 12/08/21 16:22 Dose: 6 mg Documented by: DARRIUS Re-Assess: Pain Reassessment Document 12/08/21 16:40 JH (Rec: 12/08/21 16:40 JH [id number]) Pain Description Pain Scale Used 0-10 Pain Scale Admin: 12/08/21 10:28 Dose: 6 mg Documented by: DARRIUS VALENZUELA PAIN Document 12/08/21 10:28 JH (Rec: 12/08/21 10:28 JH [id number]) Reassesment Location Chest Pain Scale Used 0-10 Pain Scale Re-Assess: Pain Reassessment Document 12/08/21 10:58 JH (Rec: 12/08/21 11:19 JH [id number]) Pain Description Pain Scale Used 0-10 Pain Scale Admin: 12/08/21 02:57 Dose: 6 mg Documented by: STEPHANIE MAR PAIN Document 12/08/21 02:57 AW (Rec: 12/08/21 02:58 AW [id number]) Reassesment Pain Site Right Location Chest Pain Scale Used 0-10 Pain Scale Pain Intensity (0-10) 10 Re-Assess: Pain Reassessment Document 12/08/21 03:27 JH (Rec: 12/08/21 07:25 JH [id number]) Pain Description Pain Scale Used 0-10 Pain Scale Admin: 12/07/21 20:28 Dose: 6 mg Documented by: STEPHANIE MAR PAIN Document 12/07/21 20:28 AW (Rec: 12/07/21 20:29 AW [id number]) Reassesment Pain Site Left Location Chest Pain Scale Used 0-10 Pain Scale Pain Intensity (0-10) 4 Re-Assess: Pain Reassessment Document 12/07/21 20:58 AW (Rec: 12/07/21 23:13 AW [id number]) Pain Description Pain Scale Used FLACC FLACC Score 0 Admin: 12/07/21 16:43 Dose: 6 mg Documented by: FRANK Re-Assess: Pain Reassessment Document 12/07/21 17:13 AWG (Rec: 12/07/21 17:39 AWG [id number]) Pain Description Pain Scale Used 0-10 Pain Scale Pain Intensity (0-10) 4 Admin: 12/05/21 23:09 Dose: 6 mg Documented by: STEPHANIE Re-Assess: Pain Reassessment Document 12/05/21 23:39 AW (Rec: 12/06/21 01:58 AW [id number]) Pain Description Pain Scale Used FLACC FLACC Score 0 Comment patient appears to be sleeping Nicotine (Nicotine 21 Mg/Patch Patch) 21 mg TOP Q24H NISHA Stop: 01/07/22 09:59 Last Admin: 12/09/21 08:04 Dose: 21 mg Documented by: Admin: 12/08/21 10:10 Dose: 21 mg Documented by: DARRIUS VALENZUELA TOPICAL APPLICATION SITE Document 12/08/21 10:10 JH (Rec: 12/08/21 10:10 JH [id number]) Application Site Applied to: Left Outer Upper Arm Ondansetron HCl (Ondansetron Hcl 4 Mg/2 Ml Vial) 4 mg IV Q6H PRN PRN PRN Reason: NAUSEA/VOMITING Stop: 01/04/22 09:01 Throat Lozenges (Benzocaine/Menthol 15 Mg Lozenge - Cepacol) 15 mg PO UD PRN PRN Reason: COUGH Stop: 01/08/22 08:59 Last Admin: 12/09/21 10:21 Dose: 15 mg Documented by: JESUS Discontinued Medications Cefepime HCl (Cefepime Hcl 1 Gm Vial) Confirm Administered Dose 1 g .ROUTE .STK- MED ONE Stop: 12/05/21 03:34 Enoxaparin Sodium (Enoxaparin Sodium 100 Mg/Ml Syringe) 100 mg 1 mg/kg (100 mg) SQ ONCE ONE Stop: 12/05/21 06:16 Last Admin: 12/05/21 06:45 Dose: 100 mg Documented by: PEDRO Medication Administration Document 12/05/21 06:45 GLADYS (Rec: 12/05/21 06:45 KF [id number]) Type of Injection IM/SQ Injection Yes Antibiotic IM Injection No Injection Site MAR Injection Site Right Lower Quad Enoxaparin Sodium (Enoxaparin Sodium 120 Mg/0.8 Ml Syringe) Confirm Administered Dose 120 mg SQ .STK-MED ONE Stop: 12/05/21 06:20 Cefepime HCl 1 g/ Sodium (Chloride) 100 mls @ 200 mls/hr IV STAT STA Stop: 12/05/21 03:31 Last Admin: 12/05/21 03:49 Dose: 200 mls/hr Documented by: [employer] Admininistration (IV,IVP) Document 12/05/21 03:49 ASC (Rec: 12/05/21 03:50 ASC [id number]) Type of Administration Initial IV Push No Sodium Chloride (Sodium Chloride 0.9% 100 Ml Bag) Confirm Administered Dose 100 mls @ ud .ROUTE .[employer]-MED ONE Stop: 12/05/21 03:36 Sodium Chloride (Sodium Chloride 0.9% 1000 Ml) 1,000 mls @ 999 mls/hr IV .Q1H1M STA Stop: 12/05/21 04:48 Last Infusion: 12/05/21 06:05 Dose: 0 mls/hr Documented by: PEDRO Infusion/Titration Document 12/05/21 06:05 KF (Rec: 12/05/21 06:05 KF [id number]) Dosing & Rate IV Rate 0 Increase/Decrease Paused Cumulative Dose Not Applicable IV Intake Container Volume 1,000 Infusion Intake 0 Cumulative Intake (Bag) 0 Cumulative Intake (Rx) 0 Volume Adjustment/Waste 0 Admin: 12/05/21 04:03 Dose: 999 mls/hr Documented by: [employer] Admininistration (IV,IVP) Document 12/05/21 04:03 ASC (Rec: 12/05/21 04:04 ASC [id number]) Type of Administration Initial IV Push No Infusion/Titration Document 12/05/21 04:03 ASC (Rec: 12/05/21 04:04 ASC [id number]) Dosing & Rate IV Rate 999 Increase/Decrease Started Cumulative Dose Not Applicable IV Intake Container Volume 1,000 Volume Adjustment/Waste 0 Re-Assess: ED IV Start & Stop Times Document 12/05/21 06:05 KF (Rec: 12/05/21 06:05 KF [id number]) IV Hydration (IV FLUIDS) IV Hydration Start Date 12/05/21 IV Hydation Start Time 03:48 IV Hydration Stop Date 12/05/21 IV Hydation Stop Time 04:48 IV Hydration Elapsed Time 60 Sodium Chloride (Sodium Chloride 0.9% 1000 Ml) Confirm Administered Dose 1,000 mls @ ud .ROUTE .STK-MED ONE Stop: 12/05/21 03:59 Sodium Chloride (Sodium Chloride 0.9% 1000 Ml) 1,000 mls @ 125 mls/hr IV .Q8H NISHA Stop: 01/04/22 09:14 Remdesivir 100 mg/ Sodium (Chloride) 100 mls @ 100 mls/hr IV Q24H NISHA Stop: 12/09/21 10:59 Last Admin: 12/09/21 10:37 Dose: 100 mls/hr Documented by: Admin: 12/08/21 10:18 Dose: 100 mls/hr Documented by: Admin: 12/07/21 10:27 Dose: 100 mls/hr Documented by: Admin: 12/06/21 08:33 Dose: 100 mls/hr Documented by: KAMERON Remdesivir 200 mg/ Sodium (Chloride) 250 mls @ 125 mls/hr IV ONCE ONE Stop: 12/05/21 11:59 Last Admin: 12/05/21 09:36 Dose: 125 mls/hr Documented by: KAITLYN Insulin Human Regular 100 unit (/ Sodium Chloride) 100 mls @ 10.48 mls/hr IV .Q9H33M PRN; Protocol PRN Reason: DKA/HYPERGLYCEMIA Stop: 01/05/22 12:00 Last Titration: 12/07/21 03:03 Dose: 0.14 unit/kg/hr, 15 mls/hr Documented by: STEPHANIE Infusion/Titration Document 12/07/21 03:03 SERENA (Rec: 12/07/21 03:04 AW [id number]) Dosing & Rate Titration Dose 0.14 IV Rate 15 Increase/Decrease Infused Cumulative Dose 192 IV Intake Container Volume 0 Infusion Intake 17 Cumulative Intake (Bag) 100 Cumulative Intake (Rx) 192 Volume Adjustment/Waste 0 Titration: 12/07/21 02:00 Dose: 0.16 unit/kg/hr, 17 mls/hr Documented by: AWALTERS Infusion/Titration Document 12/07/21 02:00 AW (Rec: 12/07/21 02:00 AW [id number]) Dosing & Rate Titration Dose 0.16 IV Rate 17 Increase/Decrease Running Cumulative Dose 175 IV Intake Container Volume 17 Infusion Intake 43 Cumulative Intake (Bag) 83 Cumulative Intake (Rx) 175 Volume Adjustment/Waste 0 Titration: 12/06/21 23:30 Dose: 0.16 unit/kg/hr, 17 mls/hr Documented by: STEPHANIE Infusion/Titration Document 12/06/21 23:30 AW (Rec: 12/06/21 23:33 AW [id number]) Dosing & Rate Titration Dose 0.16 IV Rate 17 Increase/Decrease Increased Cumulative Dose 132 IV Intake Container Volume 60 Infusion Intake 16 Cumulative Intake (Bag) 40 Cumulative Intake (Rx) 132 Volume Adjustment/Waste 0 Titration: 12/06/21 22:30 Dose: 0.15 unit/kg/hr, 16 mls/hr Documented by: STEPHANIE Infusion/Titration Document 12/06/21 22:30 AW (Rec: 12/06/21 22:39 AW [id number]) Dosing & Rate Titration Dose 0.15 IV Rate 16 Increase/Decrease Increased Cumulative Dose 116 IV Intake Container Volume 76 Infusion Intake 14 Cumulative Intake (Bag) 24 Cumulative Intake (Rx) 116 Volume Adjustment/Waste 0 Titration: 12/06/21 21:30 Dose: 0.14 unit/kg/hr, 14.4 mls/hr Documented by: STEPHANIE Infusion/Titration Document 12/06/21 21:30 AW (Rec: 12/06/21 21:44 AW [id number]) Dosing & Rate Titration Dose 0.14 IV Rate 14.4 Increase/Decrease Increased Cumulative Dose 102 IV Intake Container Volume 90 Infusion Intake 10 Cumulative Intake (Bag) 10 Cumulative Intake (Rx) 102 Volume Adjustment/Waste 0 Admin: 12/06/21 20:47 Dose: 0.13 unit/kg/hr, 13.4 mls/hr Documented by: STEPHANIE MAR GLUCOSE CHECK Document 12/06/21 20:47 AW (Rec: 12/06/21 20:47 AW [id number]) POCT Blood Glucose POCT Glucose (Last Value) 306 mg/dL (74 to 106) H Infusion/Titration Document 12/06/21 20:47 AW (Rec: 12/06/21 20:47 AW [id number]) Dosing & Rate Titration Dose 0.13 IV Rate 13.4 Increase/Decrease Started/Running Cumulative Dose 92 IV Intake Container Volume 100 Cumulative Intake (Rx) 92 Volume Adjustment/Waste 0 Titration: 12/06/21 20:30 Dose: 0.13 unit/kg/hr, 13.4 mls/hr Documented by: [employer] Infusion/Titration Document 12/06/21 20:30 AW (Rec: 12/06/21 20:47 AW [id number]) Dosing & Rate Titration Dose 0.13 IV Rate 13.4 Increase/Decrease Infused Cumulative Dose 92 IV Intake Container Volume 0 Infusion Intake 12 Cumulative Intake (Bag) 92 Cumulative Intake (Rx) 92 Volume Adjustment/Waste 8 Titration: 12/06/21 19:30 Dose: 0.12 unit/kg/hr, 12.4 mls/hr Documented by: ALEXYS[employer]ino [employer] Infusion/Titration Document 12/06/21 19:30 AW (Rec: 12/06/21 20:00 AW [id number]) Dosing & Rate Titration Dose 0.12 IV Rate 12.4 Increase/Decrease Increased Cumulative Dose 80 IV Intake Container Volume 20 Infusion Intake 11 Cumulative Intake (Bag) 80 Cumulative Intake (Rx) 80 Volume Adjustment/Waste 0 Titration: 12/06/21 18:30 Dose: 0.11 unit/kg/hr, 11.4 mls/hr Documented by: [facility] Infusion/Titration Document 12/06/21 18:30 MW (Rec: 12/06/21 19:12 MW [id number]) Dosing & Rate Titration Dose 0.11 IV Rate 11.4 Increase/Decrease Increased Cumulative Dose 69 IV Intake Container Volume 31 Infusion Intake 10 Cumulative Intake (Bag) 69 Cumulative Intake (Rx) 69 Volume Adjustment/Waste 0 Titration: 12/06/21 17:30 Dose: 0.1 unit/kg/hr, 10.4 mls/hr Documented by: [facility] Infusion/Titration Document 12/06/21 17:30 MW (Rec: 12/06/21 19:12 MW [id number]) Dosing & Rate Titration Dose 0.1 IV Rate 10.4 Increase/Decrease Running Cumulative Dose 59 IV Intake Container Volume 41 Infusion Intake 10 Cumulative Intake (Bag) 59 Cumulative Intake (Rx) 59 Volume Adjustment/Waste 0 Titration: 12/06/21 16:32 Dose: 0.1 unit/kg/hr, 10.4 mls/hr Documented by: [facility] Infusion/Titration Document 12/06/21 16:32 MW (Rec: 12/06/21 16:33 MW [id number]) Dosing & Rate Titration Dose 0.1 IV Rate 10.4 Increase/Decrease Decreased Cumulative Dose 49 IV Intake Container Volume 51 Infusion Intake 12 Cumulative Intake (Bag) 49 Cumulative Intake (Rx) 49 Volume Adjustment/Waste 0 Titration: 12/06/21 15:30 Dose: 0.11 unit/kg/hr, 11.4 mls/hr Documented by: [facility] Infusion/Titration Document 12/06/21 15:30 MW (Rec: 12/06/21 15:43 MW [id number]) Dosing & Rate Titration Dose 0.11 IV Rate 11.4 Increase/Decrease Decreased Cumulative Dose 37 IV Intake Container Volume 63 Infusion Intake 12 Cumulative Intake (Bag) 37 Cumulative Intake (Rx) 37 Volume Adjustment/Waste 0 Titration: 12/06/21 14:35 Dose: 0.12 unit/kg/hr, 12.576 mls/hr Documented by: [employer] Infusion/Titration Document 12/06/21 14:35 MW (Rec: 12/06/21 15:03 MW [id number]) Dosing & Rate Titration Dose 0.12 IV Rate 12.576 Increase/Decrease Increased Cumulative Dose 25 IV Intake Container Volume 75 Infusion Intake 14 Cumulative Intake (Bag) 25 Cumulative Intake (Rx) 25 Volume Adjustment/Waste 0 Titration: 12/06/21 13:20 Dose: 0.11 unit/kg/hr, 11.4 mls/hr Documented by: [employer] Infusion/Titration Document 12/06/21 13:20 MW (Rec: 12/06/21 13:20 MW [id number]) Dosing & Rate Titration Dose 0.11 IV Rate 11.4 Increase/Decrease Increased Cumulative Dose 11 IV Intake Container Volume 89 Infusion Intake 11 Cumulative Intake (Bag) 11 Cumulative Intake (Rx) 11 Volume Adjustment/Waste 0 Admin: 12/06/21 12:15 Dose: 0.1 unit/kg/hr, 10.48 mls/hr Documented by: [facility] MAR GLUCOSE CHECK Document 12/06/21 12:15 MW (Rec: 12/06/21 12:15 MW [id number]) POCT Blood Glucose POCT Glucose (Last Value) 413 mg/dL (74 to 106) H Infusion/Titration Document 12/06/21 12:15 MW (Rec: 12/06/21 12:15 MW [id number]) Dosing & Rate Titration Dose 0.1 IV Rate 10.48 Increase/Decrease Started IV Intake Container Volume 100 Volume Adjustment/Waste 0 Insulin Glargine (Insulin Glargine 1 Unit) 20 unit SQ HS [facility] Stop: 01/04/22 21:59 Last Admin: 12/05/21 22:01 Dose: 20 unit Documented by: STEPHANIE VALENZUELA Injection Site Document 12/05/21 22:01 AW (Rec: 12/05/21 22:01 AW [id number]) Injection Site MAR Injection Site Left Deltoid Insulin Glargine (Insulin Glargine 1 Unit) 20 unit SQ QAM [facility] Stop: 12/07/21 03:16 Last Admin: 12/07/21 03:20 Dose: 20 unit Documented by: STEPHANIE VALENZUELA Injection Site Document 12/07/21 03:20 AW (Rec: 12/07/21 03:20 AW [id number]) Injection Site MAR Injection Site Left Upper Quad Insulin Glargine (Insulin Glargine 1 Unit) 20 unit SQ HS [facility] Stop: 01/06/22 21:59 Insulin Human Lispro (Insulin Lispro 1 Unit) 0 unit SQ UD PRN PRN Reason: HYPERGLYCEMIA Stop: 01/04/22 09:01 Last Admin: 12/05/21 15:56 Dose: 11 unit Documented by: KAITLYN VALENZUELA GLUCOSE CHECK Document 12/05/21 15:56 RM (Rec: 12/05/21 15:57 RM [id number]) POCT Blood Glucose POCT Glucose (Last Value) 381 mg/dL (74 to 106) H MAR Injection Site Document 12/05/21 15:56 RM (Rec: 12/05/21 15:57 RM [id number]) Injection Site MAR Injection Site Right Lower Quad Admin: 12/05/21 11:42 Dose: 11 unit Documented by: KAITLYN VALENZUELA GLUCOSE CHECK Document 12/05/21 11:42 RM (Rec: 12/05/21 11:43 RM [id number]) POCT Blood Glucose POCT Glucose (Last Value) 386 mg/dL (74 to 106) H [facility] Injection Site Document 12/05/21 11:42 RM (Rec: 12/05/21 11:43 RM [id number]) Injection Site MAR Injection Site Left Upper Quad Admin: 12/05/21 09:28 Dose: 11 unit Documented by: KAITLYN [facility] GLUCOSE CHECK Document 12/05/21 09:28 RM (Rec: 12/05/21 09:29 RM [id number]) POCT Blood Glucose POCT Glucose (Last Value) 395 mg/dL (74 to 106) H [facility] Injection Site Document 12/05/21 09:28 RM (Rec: 12/05/21 09:29 RM [id number]) Injection Site MAR Injection Site Right Lower Quad Insulin Human Regular (Insulin Regular, Human 1 Unit) 10 unit IV STAT ONE Stop: 12/05/21 03:16 Last Admin: 12/05/21 04:05 Dose: 10 unit Documented by: ARETHA Med Admininistration (IV,IVP) Document 12/05/21 04:05 ASC (Rec: 12/05/21 04:06 ASC [id number]) Type of Administration Initial IV Push Yes Medication Administration Document 12/05/21 04:05 ASC (Rec: 12/05/21 04:06 ASC [id number]) Type of Injection IM/SQ Injection No Antibiotic IM Injection No MAR GLUCOSE CHECK Document 12/05/21 04:05 ASC (Rec: 12/05/21 04:06 ASC [id number]) POCT Blood Glucose POCT Glucose (Last Value) 370 Insulin Human Regular (Insulin Regular, Human 1 Unit) Confirm Administered Dose 10 unit .ROUTE .STK-MED ONE Stop: 12/05/21 03:58 Insulin Human Regular (Insulin Regular, Human 1 Unit) 10 unit IV ONCE ONE Stop: 12/06/21 12:31 Last Admin: 12/06/21 12:19 Dose: 10 unit Documented by: KAMERON [facility] GLUCOSE CHECK Document 12/06/21 12:19 MW (Rec: 12/06/21 12:20 MW [id number]) POCT Blood Glucose POCT Glucose (Last Value) 413 mg/dL (74 to 106) H Morphine Sulfate (Morphine Sulfate 4 Mg/Ml Injection) 4 mg IV STAT ONE Stop: 12/05/21 04:23 Last Admin: 12/05/21 04:34 Dose: 4 mg Documented by: ARETHA Med Admininistration (IV,IVP) Document 12/05/21 04:34 ASC (Rec: 12/05/21 04:35 ASC [id number]) Type of Administration Initial IV Push No IV Push-Addtl Different Drug Yes [facility] PAIN Document 12/05/21 04:34 ASC (Rec: 12/05/21 04:35 ASC [id number]) Reassesment Pain Scale Used 0-10 Pain Scale Pain Intensity (0-10) 7 Morphine Sulfate (Morphine Sulfate 4 Mg/Ml Injection) Confirm Administered Dose 4 mg .ROUTE .STK-MED ONE Stop: 12/05/21 04:34 Morphine Sulfate (Morphine Sulfate 4 Mg/Ml Injection) 4 mg IV STAT ONE Stop: 12/05/21 06:46 Last Admin: 12/05/21 06:50 Dose: 4 mg Documented by: PEDRO Med Admininistration (IV,IVP) Document 12/05/21 06:50 KF (Rec: 12/05/21 06:50 [id number]) Type of Administration Initial IV Push No IV Push-Addtl Same Drug >30min Yes [facility] PAIN Document 12/05/21 06:50 KF (Rec: 12/05/21 06:50 KF [id number]) Reassesment Location Chest Pain Scale Used 0-10 Pain Scale Pain Intensity (0-10) 8 Management Goal (0-10) 6 Morphine Sulfate (Morphine Sulfate 4 Mg/Ml Injection) Confirm Administered Dose 4 mg .ROUTE .STK-MED ONE Stop: 12/05/21 06:50 Morphine Sulfate (Morphine Sulfate 10 Mg/Ml Injection) 10 mg IV Q3H PRN PRN PRN Reason: PAIN Stop: 12/10/21 09:00 Last Admin: 12/05/21 09:27 Dose: 10 mg Documented by: KAITLYN [facility] PAIN Document 12/05/21 09:27 RM (Rec: 12/05/21 09:28 RM [id number]) Reassesment Pain Site Right Location Chest Pain Scale Used 0-10 Pain Scale Pain Intensity (0-10) 10 Re-Assess: Pain Reassessment Document 12/05/21 09:57 RM (Rec: 12/05/21 10:14 RM [id number]) Pain Description Pain Scale Used Elliott-Allan Faces Pain Scale Pain Intensity (0-10) 0 Comment Asleep Ondansetron HCl (Ondansetron Hcl 4 Mg/2 Ml Vial) 4 mg IV STAT ONE Stop: 12/05/21 04:23 Last Admin: 12/05/21 04:34 Dose: 4 mg Documented by: [employer] Med Admininistration (IV,IVP) Document 12/05/21 04:34 ASC (Rec: 12/05/21 04:34 ASC [id number]) Type of Administration Initial IV Push No IV Push-Addtl Different Drug Yes Ondansetron HCl (Ondansetron Hcl 4 Mg/2 Ml Vial) Confirm Administered Dose 4 mg .ROUTE .STK-MED ONE Stop: 12/05/21 04:33 Pantoprazole Sodium (Pantoprazole 40 Mg Vial) 40 mg IV STAT ONE Stop: 12/05/21 04:24 Last Admin: 12/05/21 04:34 Dose: 40 mg Documented by: [employer] Med Admininistration (IV,IVP) Document 12/05/21 04:34 ASC (Rec: 12/05/21 04:34 ASC [id number]) Type of Administration Initial IV Push No IV Push-Addtl Different Drug Yes Pantoprazole Sodium (Pantoprazole 40 Mg Vial) Confirm Administered Dose 40 mg IV .STK-MED ONE Stop: 12/05/21 04:33 Code(s): E11.65 - TYPE 2 DIABETES MELLITUS WITH HYPERGLYCEMIA - Discharge Discharge Date: 12/09/21 Disposition: Home, Self-Care Condition: Stable Prescriptions: New Glimepiride 2 mg [Amaryl 2 MG] 2 mg PO DAILY #30 tablet Metformin HCl Xr 500 mg [Glucophage XR 500 MG] 500 mg PO DAILY #30 tab Methylprednisolone Packet [Medrol Dosepack] 4 mg PO UD #30 packet Methylprednisolone Packet [Medrol Dosepack] 4 mg PO UD #21 packet Instructions: Diabetes Diet , Blood Glucose Monitoring, Treatment for Type 2 Diabetes, Coronavirus Disease 2019 (COVID-19) (DC) Additional Instructions: YOU WILL NEED TO ISOLATE UNTIL THE UNLESS YOU CONTINUE TO HAVE SYMPTOMS THEN YOU WILL NEED TO ISOLATE FOR AN ADDITIONAL 5 DAYS. CHECK BLOOD SUGAR TWICE A DAY Follow up with: SUGEY HILL MD [ACTIVE STAFF] - 12/24/21 3:00 pm ([place] [facility]ICE)
== END 2021-12-09 13:39 | disposition home or self-care (01) | DRG 177 ==
LOC: ED 01:47 → MED SURG 08:14
PROVIDERS: ADMIT Family Medicine; ATTEND Family Medicine
DX: U07.1 COVID-19 (principal); J12.82 Pneumonia due to coronavirus disease 2019; E11.65 Type 2 diabetes mellitus with hyperglycemia; R06.82 Tachypnea, not elsewhere classified; I10 Essential (primary) hypertension; Z72.0 Tobacco use; Z79.01 Long term (current) use of anticoagulants
CPT/HCPCS: 0241U; 36415; 36600; 71045; 80053; 80307; 81001; 82375; 82803; 82947; 83605; 83880; 84484; 85025; 85027; 85379; 87040; 87077; 93005; 94667; 94668; 94762; 96360; 96372; 96374; 96375; 96376; 99285; 99291; J0248; J0692; J0696; J1100; J1650; J1815; J1817; J2060; J2270; J2405; A9270-GY

== ENCOUNTER 2022-04-11 14:12 | Emergency (ER) | payer MEDICAID, OTHER ==
[2022-04-11 14:29] VITALS: BP 178/93; PULSE 109; O2SAT 93
[2022-04-11] MEDS ORDERED: XYLOCAINE 1% HCL 20 ML MDV ONE (14:31)
[2022-04-11] MEDS ORDERED: NORCO 5/325 MG ONE (14:39)
[2022-04-11] MEDS: NORCO 5/325 MG PO ONE (14:40)
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
== END 2022-04-11 15:18 | disposition home or self-care (01) ==
LOC: ED 14:12
DX: S01.412A Laceration without foreign body of left cheek and temporomandibular area, initial encounter (principal); W20.8XXA Other cause of strike by thrown, projected or falling object, initial encounter; I10 Essential (primary) hypertension; E11.9 Type 2 diabetes mellitus without complications; Z72.0 Tobacco use
CPT/HCPCS: 12013; 99283; A9270-GY

== ENCOUNTER 2023-10-28 19:26 | Observation (INO) | payer OTHER ==
--- NOTE | 2023-10-28 21:01 | ERPHSYRPT ---
- History of Present Illness Time Seen by Provider: 10/28/23 20:45 Historian: patient Exam Limitations: no limitations Patient Subjective Stated Complaint: abscess to the back of the neck, developed chest pain while sitting in the waiting room Triage Nursing Assessment: pt ambulated into ER, friend at bedside. Pt came in for abscess to the back of his neck that has been there for a few days and pt developed chest pain while sitting in the waiting room and was brought back immediately after report of chest pain. Lungs clear, heart tones reg. Pt c/o chest pain to rt side of chest that radiates thru to his back. Pt has chronic smokers cough. Lungs clear, heart tones reg. Pt has abscess to back of his neck, 1.8cm L x 1.8cm W, oozing around it with light serous drainage. Pt is diabetic but is non-compliant as he does not take his medications for it. Physician History: Pt states he has had an abscess on the back of his neck for at least 4 days, shortness of air for the past 2 days, right anterior chest pain radiating to the back with nausea for the past 45 minutes. Allergies/Adverse Reactions: No Known Drug Allergies Allergy (Verified 10/28/23 20:52) Home Medications: No Reportable Medications [No Reported Medications] 10/28/23 [History] Hx Tetanus, Diphtheria Vaccination/Date Given: No Hx Influenza Vaccination/Date Given: No Hx Pneumococcal Vaccination/Date Given: No Immunizations Up to Date: No Travel Risk - International Travel Have you traveled outside of the country in past 3 weeks: No - Coronavirus Screening Are you exhibiting any of the following symptoms?: Yes Symptoms: Headaches/Body Aches/Fatigue Close contact with a COVID-19 positive Pt in past 14-21 Days: No - Vaccine Status Have you recieved a Covid-19 vaccination: No - Review of Systems Respiratory: Dyspnea Cardiac: Chest Pain Abdominal/Gastrointestinal: Nausea, No Abdominal Pain Skin: Other (abscess on the back of his neck for at least the past 4 days) - Past Medical History Pertinent Past Medical History: Yes Neurological History: No Pertinent History ENT History: No Pertinent History Cardiac History: Hypertension Respiratory History: Pneumonia Endocrine Medical History: Diabetes Type II Musculoskeletal History: No Pertinent History GI Medical History: No Pertinent History History: No Pertinent History Psycho-Social History: Depression Male Reproductive Disorders: No Pertinent History Other Medical History: IV drug use (Meth) - Past Surgical History Past Surgical History: Yes Neuro Surgical History: No Pertinent History Cardiac: No Pertinent History Respiratory: No Pertinent History Gastrointestinal: No Pertinent History Genitourinary: No Pertinent History Musculoskeletal: Other Male Surgical History: No Pertinent History Other Surgical History: surgery on leg - Social History Smoking Status: Current every day smoker How long have you smoked: 50 yrs Exposure to second hand smoke: Yes Drug Use: none Patient Lives Alone: No - Nursing Vital Signs Nursing Vital Signs: Initial Vital Signs Temperature 99.5 F 10/28/23 20:27 Pulse Rate 112 H 10/28/23 20:27 Respiratory Rate 22 10/28/23 20:27 Blood Pressure 146/90 10/28/23 20:27 O2 Sat by Pulse Oximetry 92 L 10/28/23 20:27 Pain Scale Pain Intensity 4 - Physical Exam General Appearance: alert Eye Exam: PERRL/EOMI Ears, Nose, Throat Exam: pharynx normal Neck Exam: other (1.8 cm diameter area of tender induration and warmth with central abscess) Respiratory Exam: normal breath sounds Cardiovascular Exam: normal heart sounds Gastrointestinal/Abdomen Exam: normal bowel sounds Extremity Exam: No pedal edema Neurologic Exam: alert, cooperative SpO2 Interpretation: hypoxic SpO2: 92 O2 Delivery: Room Air - Course Nursing assessment & vital signs reviewed: Yes EKG Interpreted by Me: RATE ([id number]), Sinus Tach, NORMAL AXIS, NORMAL INTERVALS - CT Exams Soft Tissue Neck CT Interpretation: Tele-radiologist Report (An ill defined 3.0 x 2.5 cm soft tissue density area with fat stranding and induration noted in neck posteriorly with underlying edematous paraspinal muscles, no intramuscular collection or abscess seen. Overlying skin thickening is noted. These findings are concerning for acute infectious process. ) Chest CT Interpretation: Tele-radiologist Report (No radiological evidence of pulmonary embolism on this CT. 3 mm indeterminate semisolid subpleural soft tissue nodule in right upper lobe, requires follow up.) Ordered Tests: Active Orders 24 hr Category Date Time Status Plasterer Helper STAT Care 10/28/23 21:05 Active EKG-ER Only STAT Care 10/28/23 21:04 Active IV Insertion STAT Care 10/28/23 21:04 Active Oxygen-ED Only Nasal Cannula 2 lpm Care 10/28/23 21:51 Active CHEST WITH CONTRAST [CT] Stat Exams 10/28/23 21:03 Completed NECK WO CONTRAST [CT] Stat Exams 10/28/23 21:03 Completed BLOOD CULTURE Stat Lab 10/28/23 21:30 Received CBC W DIFF Stat Lab 10/28/23 21:10 Completed CMP Stat Lab 10/28/23 21:10 Completed Lactic Acid Stat Lab 10/28/23 21:10 Completed MAGNESIUM Stat Lab 10/28/23 21:10 Completed TROPONIN Q4H Lab 10/28/23 21:20 Completed UA W/RFX UR CULTURE Stat Lab 10/28/23 00:58 Completed VENOUS BLOOD GAS Urgent Lab 10/28/23 21:10 Completed Medication Summary Discontinued Medications Generic Name Dose Route Start Last Admin Trade Name Freq PRN Reason Stop Dose Admin Acetaminophen 975 mg 10/28/23 21:06 10/28/23 21:41 Acetaminophen 325 Mg Tablet PO 10/28/23 21:07 975 mg STAT ONE Administration Acetaminophen Confirm 10/28/23 21:29 Acetaminophen 325 Mg Tablet Administered 10/28/23 21:30 Dose 975 mg .ROUTE .STK-MED ONE Aspirin 324 mg 10/28/23 21:04 10/28/23 21:41 Aspirin 81 Mg Tab.Chew PO 10/28/23 21:05 324 mg STAT ONE Administration Aspirin Confirm 10/28/23 21:28 Aspirin 81 Mg Tab.Chew Administered 10/28/23 21:29 Dose 324 mg .ROUTE .STK-MED ONE Sodium Chloride 1,000 mls @ 999 mls/hr 10/28/23 21:04 10/28/23 23:06 Sodium Chloride 0.9% 1000 Ml IV 10/28/23 22:04 Infused .Q1H1M STA Infusion Clindamycin HCl/Dextrose 900 mg in 50 mls @ 100 mls/hr 10/28/23 21:06 10/28/23 22:18 Clindamycin-D5w 900 Mg/50 Ml IV 10/28/23 21:35 Infused STAT STA Infusion Sodium Chloride Confirm 10/28/23 21:29 Sodium Chloride 0.9% 1000 Ml Administered 10/28/23 21:30 Dose 1,000 mls @ ud .ROUTE .STK-MED ONE Clindamycin HCl/Dextrose Confirm 10/28/23 21:29 Clindamycin-D5w 900 Mg/50 Ml Administered 10/28/23 21:30 Dose 900 mg in 50 mls @ ud IV .STK-MED ONE Ketorolac Tromethamine 15 mg 10/28/23 22:55 10/28/23 23:02 Ketorolac Tromethamine 30 Mg/Ml Inj IV 10/28/23 22:56 15 mg STAT ONE Administration Ketorolac Tromethamine Confirm 10/28/23 23:01 Ketorolac Tromethamine 30 Mg/Ml Inj Administered 10/28/23 23:02 Dose 30 mg .ROUTE .STK-MED ONE Lab/Rad Data: Laboratory Result Diagrams 10/28/23 21:10 10/28/23 21:10 Laboratory Results 10/28/23 10/28/23 10/28/23 Range/Units 21:20 21:10 21:10 WBC (4.0-10.5) x10^3/uL RBC (4.1-5.6) x10^6/uL Hgb (12.5-18.0) g/dL Hct (42-50) % MCV (78-100) fL MCH (26-32) pg MCHC (32-36) g/dL RDW (11.5-14.0) % Plt Count (150-450) x10^3/uL MPV (7.5-11.0) fL Gran % (36.0-66.0) % Immature Gran % (Auto) (0.00-0.4) % Nucleat RBC Rel Count (0.00-0.1) % Eos # (Auto) (0-0.5) x10^3/uL Immature Gran # (Auto) (0.00-0.03) x10^3u/L Absolute Lymphs (auto) (1.0-4.6) x10^3/uL Absolute Monos (auto) (0.0-1.3) x10^3/uL Absolute Nucleated RBC (0.00-0.01) x10^3u/L Lymphocytes % (24.0-44.0) % Monocytes % (0.0-12.0) % Eosinophils % (0.00-5.0) % Basophils % (0.0-0.4) % Absolute Granulocytes (1.4-6.9) x10^3/uL Basophils # (0-0.4) x10^3/uL pO2/FiO2 Ratio 21.0 % VBG pH 7.45 H (7.32-7.42) VBG pCO2 at Pat Temp 44 (42-55) mm/Hg VBG pO2 at Pat Temp 52 H (25-40) mm/Hg VBG HCO3 30.6 H* (22-28) meq/L VBG O2 Sat (Harjeet) 87.5 L (95-100) VBG Base Excess 5.6 H (-2.0-2.0) VBG Hemoglobin 17.5 VBG Carboxyhemoglobin 5.4 (0.0-6.9) % T HGB POC Potassium 3.9 (3.5-5.1) Sodium 132 L (137-145) mmol/L Potassium 3.7 (3.5-5.1) mmol/L Chloride 98 (98-107) mmol/L Carbon Dioxide 23 (22-30) mmol/L Anion Gap 14.3 (5-15) MEQ/L BUN 8 L (9-20) mg/dL Creatinine 0.51 L (0.66-1.25) mg/dL Estimated GFR 119.7 ML/MIN Glucose 274 H (74-106) mg/dL Lactic Acid (0.4-2.0) Calcium 9.7 (8.4-10.2) mg/dL Magnesium 1.7 (1.6-2.3) mg/dL Total Bilirubin 0.70 (0.2-1.3) mg/dL AST 25 (17-59) U/L ALT 44 (0-50) U/L Alkaline Phosphatase 135 H (38-126) U/L Troponin I < 0.012 (0.000-0.034) ng/mL Serum Total Protein 8.3 H (6.3-8.2) g/dL Albumin 4.5 (3.5-5.0) g/dL Urine Color (Yellow) Urine Appearance (Clear) Urine pH (4.6-8.0) Ur Specific [place] (1.005-1.030) Urine Protein (Negative) Urine Glucose (UA) (Negative) mg/dL Urine Ketones (Negative) Urine Blood (Negative) Urine Nitrite (Negative) Urine Bilirubin (Negative) Urine Urobilinogen (0.2) mg/dL Ur Leukocyte Esterase (Negative) U Hyaline Cast (Auto) (0-2) /LPF Urine Microscopic RBC (0-5) /HPF Urine Microscopic WBC (0-5) /HPF Ur Epithelial Cells (None Seen) /HPF Urine Bacteria (None Seen) /HPF Urine Culture Reflexed (NO) 10/28/23 10/28/23 10/28/23 Range/Units 21:10 21:10 00:58 WBC 16.4 H (4.0-10.5) x10^3/uL RBC 5.49 (4.1-5.6) x10^6/uL Hgb 16.9 (12.5-18.0) g/dL Hct 49.7 (42-50) % MCV 90.5 (78-100) fL MCH 30.8 (26-32) pg MCHC 34.0 (32-36) g/dL RDW 12.1 (11.5-14.0) % Plt Count 217 (150-450) x10^3/uL MPV 11.1 H (7.5-11.0) fL Gran % 78.0 H (36.0-66.0) % Immature Gran % (Auto) 0.4 (0.00-0.4) % Nucleat RBC Rel Count 0.0 (0.00-0.1) % Eos # (Auto) 0.10 (0-0.5) x10^3/uL Immature Gran # (Auto) 0.07 H (0.00-0.03) x10^3u/L Absolute Lymphs (auto) 2.20 (1.0-4.6) x10^3/uL Absolute Monos (auto) 1.20 (0.0-1.3) x10^3/uL Absolute Nucleated RBC 0.00 (0.00-0.01) x10^3u/L Lymphocytes % 13.4 L (24.0-44.0) % Monocytes % 7.3 (0.0-12.0) % Eosinophils % 0.6 (0.00-5.0) % Basophils % 0.3 (0.0-0.4) % Absolute Granulocytes 12.80 H (1.4-6.9) x10^3/uL Basophils # 0.05 (0-0.4) x10^3/uL pO2/FiO2 Ratio % VBG pH (7.32-7.42) VBG pCO2 at Pat Temp (42-55) mm/Hg VBG pO2 at Pat Temp (25-40) mm/Hg VBG HCO3 (22-28) meq/L VBG O2 Sat (Harjeet) (95-100) VBG Base Excess (-2.0-2.0) VBG Hemoglobin VBG Carboxyhemoglobin (0.0-6.9) % T HGB POC Potassium (3.5-5.1) Sodium (137-145) mmol/L Potassium (3.5-5.1) mmol/L Chloride (98-107) mmol/L Carbon Dioxide (22-30) mmol/L Anion Gap (5-15) MEQ/L BUN (9-20) mg/dL Creatinine (0.66-1.25) mg/dL Estimated GFR ML/MIN Glucose (74-106) mg/dL Lactic Acid 1.1 (0.4-2.0) Calcium (8.4-10.2) mg/dL Magnesium (1.6-2.3) mg/dL Total Bilirubin (0.2-1.3) mg/dL AST (17-59) U/L ALT (0-50) U/L Alkaline Phosphatase (38-126) U/L Troponin I (0.000-0.034) ng/mL Serum Total Protein (6.3-8.2) g/dL Albumin (3.5-5.0) g/dL Urine Color Yellow (Yellow) Urine Appearance Clear (Clear) Urine pH 6.0 (4.6-8.0) Ur Specific [place] >=1.030 A (1.005-1.030) Urine Protein Trace A (Negative) Urine Glucose (UA) >=1000 A (Negative) mg/dL Urine Ketones Negative (Negative) Urine Blood Negative (Negative) Urine Nitrite Negative (Negative) Urine Bilirubin Negative (Negative) Urine Urobilinogen 0.2 (0.2) mg/dL Ur Leukocyte Esterase Negative (Negative) U Hyaline Cast (Auto) NONE SEEN (0-2) /LPF Urine Microscopic RBC 0-2 (0-5) /HPF Urine Microscopic WBC 0-2 (0-5) /HPF Ur Epithelial Cells None Seen (None Seen) /HPF Urine Bacteria None Seen (None Seen) /HPF Urine Culture Reflexed NO (NO) - Progress Progress: unchanged Discussed with Dr.: Other (Spoke with and discussed case with Dr. Funmilayo Marte(hospitalist) - obs.) Counseled pt/family regarding: lab results, diagnosis, rad results Medical Desision Making - Discussion of managment Care discussed with:: hospitalist (Spoke with ) - Diagnostic Testing Diagnostic test were ordered, analyzed, and reviewed by me: Yes Radiological Interpretation: Teleradiologist Report - Departure Departure Disposition: Observation Clinical Impression: Cellulitis of posterior aspect of neck, Chest pain, Diabetes Condition: Stable Critical Care Time: No Referrals: AMA HERRERA [Primary Care Provider] - Follow up/PCP as directed
[2023-10-28] MEDS ORDERED: Sodium Chloride 0.9% 1000 ML 1,000 ML IV STA (21:04)
[2023-10-28] MEDS ORDERED: BABY ASPIRIN 81 MG CHEW PO ONE (21:04)
[2023-10-28] MEDS ORDERED: TYLENOL 325 MG PO ONE (21:06)
[2023-10-28] MEDS ORDERED: CLINDAMYCIN-D5W 900 MG/50 ML*** 900 MG/50 ML BAG IV STA (21:06)
[2023-10-28 21:14] LABS: VBG BASE EXCESS 5.6 (-2.0-2.0); VBG CARBOXYHEMOGLOBIN 5.4 % T HGB (0.0-6.9); VBG HCO3- 30.6 meq/L (22-28); VBG HEMOGLOBIN 17.5; VBG O2 SATURATION 87.5 (95-100); VBG POTASSIUM 3.9 (3.5-5.1); VBG pH 7.45 (7.32-7.42)
[2023-10-28] MEDS ORDERED: BABY ASPIRIN 81 MG CHEW ONE (21:28)
[2023-10-28] MEDS ORDERED: Sodium Chloride 0.9% 1000 ML 1,000 ML ONE (21:29)
[2023-10-28] MEDS ORDERED: TYLENOL 325 MG ONE (21:29)
[2023-10-28] MEDS ORDERED: CLINDAMYCIN-D5W 900 MG/50 ML*** 900 MG/50 ML BAG IV ONE (21:29)
[2023-10-28 21:34] LABS: BASOPHIL % 0.3 % (0.0-0.4); Basophil (Absolute #) 0.05 x10^3/uL (0-0.4); Eosinophil % 0.6 % (0.00-5.0); Hematocrit 49.7 % (42-50); Hemoglobin 16.9 g/dL (12.5-18.0); IMMATURE GRAN # 0.07 x10^3u/L (0.00-0.03); IMMATURE GRAN % 0.4 % (0.00-0.4); Lymphocytes % 13.4 % (24.0-44.0); Mean Cell Volume 90.5 fL (78-100); Mean Corpuscular Hemoglobin 30.8 pg (26-32); Mean Platelet Volume 11.1 fL (7.5-11.0); Monocytes % 7.3 % (0.0-12.0); Platelet Count 217 x10^3/uL (150-450); Red Blood Count 5.49 x10^6/uL (4.1-5.6); Red Cell Distribution Width 12.1 % (11.5-14.0); White Blood Count 16.4 x10^3/uL (4.0-10.5)
[2023-10-28 21:48] LABS: ALBUMIN 4.5 g/dL (3.5-5.0); ANION GAP 14.3 MEQ/L (5-15); BILIRUBIN,TOTAL 0.7 mg/dL (0.2-1.3); Calcium 9.7 mg/dL (8.4-10.2); Creatinine 1 0.51 mg/dL (0.66-1.25); EST GLOMERULAR FILTRATION RATE 119.7 ML/MIN; MAGNESIUM 1.7 mg/dL (1.6-2.3); Potassium 3.7 mmol/L (3.5-5.1); Total Protein 8.3 g/dL (6.3-8.2)
[2023-10-28] MEDS ORDERED: TORAdol 30 mg Injection IV ONE (22:55)
[2023-10-28] MEDS ORDERED: TORAdol 30 mg Injection ONE (23:01)
--- NOTE | 2023-10-28 23:08 | XRAY ---
CLINICAL HISTORY:dyspnea R/O PE COMPARISON:None. TECHNIQUE:CT chest with intravenous contrast administration was performed following PE protocol. Coronal and sagittal reconstructed images were also obtained. FINDINGS: Main pulmonary artery trunk, its main and segmental branches show normal opacification. No thrombosis or area of stenosis is identified. Aorta and its main branches also show normal origin and opacification. No aneurysmal dilatation, thrombosis, dissection or area of stenosis seen. An indeterminate 3 mm semisolid subpleural nodule is seen in anterior segment of right upper lobe (image 34 of series 3). No area of consolidation or centrilobular soft tissue nodular infiltration seen in both lungs. No possible infarction seen. Incidental note is made of right azygos lobe fissure. Heart size appears normal. No pleural or pericardial effusion is noted. Visualized skeleton shows moderate degenerative changes in the form of osteophyte formation. No lytic or sclerotic osseous lesion seen. Slices acquired through upper abdomen shows possible right renal cyst. IMPRESSION: 1. No radiological evidence of pulmonary embolism on this CT. 2. 3 mm indeterminate semisolid subpleural soft tissue nodule in right upper lobe, requires follow up. Electronically Signed by: Tatiana Bains MD. (10/28/2023 23:05:00 EST)
--- NOTE | 2023-10-28 23:40 | XRAY ---
CLINICAL HISTORY:mass postgeriorly COMPARISON:None. TECHNIQUE:Thin CT axial slices of the neck were obtained withour intravenous contrast administration. Coronal and sagittal reconstructions were also obtained. FINDINGS: An ill defined soft tissue density area with adjacent fat stranding and induration is noted in the posterior neck behind C2-C5 vertebral bodies. It approximately measures 3.0 x 2.5 cm in sagittal sections. this fat stranding is reaching uptill the underlying para-spinal muscles which also appear edematous, however, no intramuscular collection or abscess seen. Overlying skin thickening is noted. Underlying bones show intact ortical surfaces. There are multiple subcentimeter multilevel cervical lymph nodes. Visuaized lung apices are normally visualized. Marked degenerative changes are seen in the cervical spine in the from of extensive osteophyte formation and vacum phenomenon. Straightening of cervical spine is noted with grade l spondylolisthesis of C3 over C4 vertebral body. Multilevel disc bulges are seen in cervcal spine with predominant changes seen at C5-6, C6-7 and C7-T1 levels with reduced intervertebral disc spaces and moderate neural foraminal stenosis. Visualized brain parenchyma appears normal. Mucosal opacification of bilateral ethmoid and bilateral maxillary sinuses noted. An 8 mm retention cyst is seen in right maxillary sinus. IMPRESSION: 1. An ill defined 3.0 x 2.5cm soft tissue density area with fat stranding and induration noted in neck posteriorly with underlying edematous paraspinal muscles, no intramuscular collection or abscess seen. Overlying skin thickening is noted. These findings are concerning for acute infectious process. Please correlate clinically and if needed, consider ultrasound/MRI correlation for further assessment. 2. Moderate cervical spondylosis with grade l spondylolisthesis of C3 over C4 vetebral body. Electronically Signed by: Tatiana Bains MD. (10/28/2023 23:36:35 EST)
[2023-10-29 01:06] LABS: Appearance Clear (Clear); Bacteria None Seen /HPF (None Seen); Bilirubin Negative (Negative); Blood Negative (Negative); Epithelial Cells None Seen /HPF (None Seen); Glucose, Urine >=1000 mg/dL (Negative); Hyaline Casts NONE SEEN /LPF (0-2); Ketones Negative (Negative); Leukocyte Esterase Negative (Negative); Nitrite Negative (Negative); Protein,Urine Dip Trace (Negative); RBC 0-2 /HPF (0-5); Specific Gravity >=1.030 (1.005-1.030); Urobilinogen 0.2 mg/dL (0.2); WBC 0-2 /HPF (0-5)
[2023-10-29 01:07] LABS: ADD URINE CULTURE? NO (NO)
[2023-10-29] MEDS ORDERED: Nitrostat 0.4 MG Tablet SL PRN (01:15)
[2023-10-29] MEDS ORDERED: Zofran 4 MG/2 ML VIAL IV PRN (02:08)
[2023-10-29] MEDS ORDERED: TYLENOL 325 MG PO PRN (02:08)
--- NOTE | 2023-10-29 02:22 | PCM.HP ---
History of Present Illness - Chief Complaint Chief Complaint: Cellulitis of posterior aspect of neck; Chest pain; Diabetes History of Present Illness: is a 53 year old male with past medical history of HTN, DMII and depression but is not taking any of his home medications presented last night with c/o neck pain and sweating. He was found to have a 2.5cm area of redness and induration on the posterior aspect of his neck. He says this started hurting him 4 days prior. He thought he felt something bit him there 4 days ago as he remembered reaching back to scratch the area. He denies any fever or chills. While in ER, he c/o chest pain radiating to hkis upper back. Says the pain s tarts in the neck and down to his chest and back. Denies any previous CAD. CT chest negative. CT neck confirms soft tissue edema/stranding with no abscess formation. Trops negative x 1. I am seeing the pt via telemedicine. He is resting, in no distress. He does not appear septic on my exam - Review of Systems Constitutional: No Symptoms Eyes: No Symptoms Ears, Nose, & Throat: No Symptoms Respiratory: No Symptoms Cardiac: No Symptoms Abdominal/Gastrointestinal: No Symptoms Genitourinary Symptoms: No Symptoms Musculoskeletal: Neck Pain Skin: Cellulitis Neurological: No Symptoms Psychological: No Symptoms Endocrine: No Symptoms Hematologic/Lymphatic: No Symptoms Immunological/Allergic: No Symptoms Medications & Allergies Home Medications: Home Medication List No Reportable Medications [No Reported Medications] 10/28/23 [History Confirmed 10/28/23] Allergies/Adverse Reactions: Allergies Allergy/AdvReac Type Severity Reaction Status Date / Time No Known Drug Allergies Allergy Verified 10/28/23 20:52 - Past Medical History Past Medical History: Yes Neurological History: No Pertinent History ENT History: No Pertinent History Cardiac History: Hypertension Respiratory History: Pneumonia Endocrine Medical History: Diabetes Type II Musculoskelatal History: No Pertinent History GI Medical History: No Pertinent History History: No Pertinent History Pyscho-Social History: Depression Male Reproductive Disorders: Prostate Problems Comment: IV drug use (Meth) - Past Surgical History Past Surgical History: Yes Neuro Surgical History: No Pertinent History Cardiac History: No Pertinent History Respiratory Surgery: No Pertinent History GI Surgical History: No Pertinent History Genitourinary Surgical Hx: No Pertinent History Musculskeletal Surgical Hx: Other Male Surgical History: No Pertinent History Other Surgical History: surgery on leg(spider bite) - Social History Smoking Status: Current every day smoker How long have you smoked: 50 yrs Exposure to second hand smoke: Yes Alcohol: Rarely Drug Use: marijuana Significant Family History: no pertinent family hx - Physical Exam Vital Signs: Vital Signs - 24 hr Temp Pulse Resp BP BP Pulse Ox 10/29/23 01:15 92 L 10/29/23 01:00 87 23 106/64 97 10/29/23 00:30 98.3 F 86 23 122/71 97 10/29/23 00:00 90 23 95/69 98 10/28/23 23:30 95 H 22 103/59 97 10/28/23 23:00 99 H 26 H 129/66 96 10/28/23 22:30 106 H 28 H 104/57 97 10/28/23 21:30 105 H 18 124/74 94 L 10/28/23 20:30 116 H 22 136/82 94 L 10/28/23 20:27 99.5 F 112 H 22 146/90 92 L General Appearance: no apparent distress Neurologic Exam: alert, oriented x 3, cooperative, normal mood/affect Eye Exam: PERRL/EOMI, eyes nml inspection Ears, Nose, Throat Exam: normal ENT inspection Neck Exam: supple, full range of motion, other (2.5cm redness and induration back on neck. No fluctuation, no drainage) Respiratory Exam: normal breath sounds, lungs clear Cardiovascular Exam: regular rate/rhythm, normal heart sounds, normal peripheral pulses Gastrointestinal/Abdomen Exam: soft, normal bowel sounds Rectal Exam: deferred Back Exam: normal inspection, normal range of motion Extremity Exam: normal inspection, normal range of motion Skin Exam: other (redness and induration in back of neck) Results - Labs Lab/Micro Results: Lab Results-Last 24 Hours 10/28/23 10/28/23 10/28/23 Range/Units 00:58 21:10 21:10 WBC 16.4 H (4.0-10.5) x10^3/uL RBC 5.49 (4.1-5.6) x10^6/uL Hgb 16.9 (12.5-18.0) g/dL Hct 49.7 (42-50) % MCV 90.5 (78-100) fL MCH 30.8 (26-32) pg MCHC 34.0 (32-36) g/dL RDW 12.1 (11.5-14.0) % Plt Count 217 (150-450) x10^3/uL MPV 11.1 H (7.5-11.0) fL Gran % 78.0 H (36.0-66.0) % Immature Gran % (Auto) 0.4 (0.00-0.4) % Nucleat RBC Rel Count 0.0 (0.00-0.1) % Eos # (Auto) 0.10 (0-0.5) x10^3/uL Immature Gran # (Auto) 0.07 H (0.00-0.03) x10^3u/L Absolute Lymphs (auto) 2.20 (1.0-4.6) x10^3/uL Absolute Monos (auto) 1.20 (0.0-1.3) x10^3/uL Absolute Nucleated RBC 0.00 (0.00-0.01) x10^3u/L Lymphocytes % 13.4 L (24.0-44.0) % Monocytes % 7.3 (0.0-12.0) % Eosinophils % 0.6 (0.00-5.0) % Basophils % 0.3 (0.0-0.4) % Absolute Granulocytes 12.80 H (1.4-6.9) x10^3/uL Basophils # 0.05 (0-0.4) x10^3/uL pO2/FiO2 Ratio % VBG pH (7.32-7.42) VBG pCO2 at Pat Temp (42-55) mm/Hg VBG pO2 at Pat Temp (25-40) mm/Hg VBG HCO3 (22-28) meq/L VBG O2 Sat (Harjeet) (95-100) VBG Base Excess (-2.0-2.0) VBG Hemoglobin VBG Carboxyhemoglobin (0.0-6.9) % T HGB POC Potassium (3.5-5.1) Sodium (137-145) mmol/L Potassium (3.5-5.1) mmol/L Chloride (98-107) mmol/L Carbon Dioxide (22-30) mmol/L Anion Gap (5-15) MEQ/L BUN (9-20) mg/dL Creatinine (0.66-1.25) mg/dL Estimated GFR ML/MIN Glucose (74-106) mg/dL Lactic Acid 1.1 (0.4-2.0) Calcium (8.4-10.2) mg/dL Magnesium (1.6-2.3) mg/dL Total Bilirubin (0.2-1.3) mg/dL AST (17-59) U/L ALT (0-50) U/L Alkaline Phosphatase (38-126) U/L Troponin I (0.000-0.034) ng/mL Serum Total Protein (6.3-8.2) g/dL Albumin (3.5-5.0) g/dL Urine Color Yellow (Yellow) Urine Appearance Clear (Clear) Urine pH 6.0 (4.6-8.0) Ur Specific Ilfeld >=1.030 A (1.005-1.030) Urine Protein Trace A (Negative) Urine Glucose (UA) >=1000 A (Negative) mg/dL Urine Ketones Negative (Negative) Urine Blood Negative (Negative) Urine Nitrite Negative (Negative) Urine Bilirubin Negative (Negative) Urine Urobilinogen 0.2 (0.2) mg/dL Ur Leukocyte Esterase Negative (Negative) U Hyaline Cast (Auto) NONE SEEN (0-2) /LPF Urine Microscopic RBC 0-2 (0-5) /HPF Urine Microscopic WBC 0-2 (0-5) /HPF Ur Epithelial Cells None Seen (None Seen) /HPF Urine Bacteria None Seen (None Seen) /HPF Urine Culture Reflexed NO (NO) 10/28/23 10/28/23 10/28/23 Range/Units 21:10 21:10 21:20 WBC (4.0-10.5) x10^3/uL RBC (4.1-5.6) x10^6/uL Hgb (12.5-18.0) g/dL Hct (42-50) % MCV (78-100) fL MCH (26-32) pg MCHC (32-36) g/dL RDW (11.5-14.0) % Plt Count (150-450) x10^3/uL MPV (7.5-11.0) fL Gran % (36.0-66.0) % Immature Gran % (Auto) (0.00-0.4) % Nucleat RBC Rel Count (0.00-0.1) % Eos # (Auto) (0-0.5) x10^3/uL Immature Gran # (Auto) (0.00-0.03) x10^3u/L Absolute Lymphs (auto) (1.0-4.6) x10^3/uL Absolute Monos (auto) (0.0-1.3) x10^3/uL Absolute Nucleated RBC (0.00-0.01) x10^3u/L Lymphocytes % (24.0-44.0) % Monocytes % (0.0-12.0) % Eosinophils % (0.00-5.0) % Basophils % (0.0-0.4) % Absolute Granulocytes (1.4-6.9) x10^3/uL Basophils # (0-0.4) x10^3/uL pO2/FiO2 Ratio 21.0 % VBG pH 7.45 H (7.32-7.42) VBG pCO2 at Pat Temp 44 (42-55) mm/Hg VBG pO2 at Pat Temp 52 H (25-40) mm/Hg VBG HCO3 30.6 H* (22-28) meq/L VBG O2 Sat (Harjeet) 87.5 L (95-100) VBG Base Excess 5.6 H (-2.0-2.0) VBG Hemoglobin 17.5 VBG Carboxyhemoglobin 5.4 (0.0-6.9) % T HGB POC Potassium 3.9 (3.5-5.1) Sodium 132 L (137-145) mmol/L Potassium 3.7 (3.5-5.1) mmol/L Chloride 98 (98-107) mmol/L Carbon Dioxide 23 (22-30) mmol/L Anion Gap 14.3 (5-15) MEQ/L BUN 8 L (9-20) mg/dL Creatinine 0.51 L (0.66-1.25) mg/dL Estimated GFR 119.7 ML/MIN Glucose 274 H (74-106) mg/dL Lactic Acid (0.4-2.0) Calcium 9.7 (8.4-10.2) mg/dL Magnesium 1.7 (1.6-2.3) mg/dL Total Bilirubin 0.70 (0.2-1.3) mg/dL AST 25 (17-59) U/L ALT 44 (0-50) U/L Alkaline Phosphatase 135 H (38-126) U/L Troponin I < 0.012 (0.000-0.034) ng/mL Serum Total Protein 8.3 H (6.3-8.2) g/dL Albumin 4.5 (3.5-5.0) g/dL Urine Color (Yellow) Urine Appearance (Clear) Urine pH (4.6-8.0) Ur Specific Ilfeld (1.005-1.030) Urine Protein (Negative) Urine Glucose (UA) (Negative) mg/dL Urine Ketones (Negative) Urine Blood (Negative) Urine Nitrite (Negative) Urine Bilirubin (Negative) Urine Urobilinogen (0.2) mg/dL Ur Leukocyte Esterase (Negative) U Hyaline Cast (Auto) (0-2) /LPF Urine Microscopic RBC (0-5) /HPF Urine Microscopic WBC (0-5) /HPF Ur Epithelial Cells (None Seen) /HPF Urine Bacteria (None Seen) /HPF Urine Culture Reflexed (NO) - Radiology Impressions Radiology Exams & Impressions: Radiology Procedures Category Date Time Status CHEST WITH CONTRAST [CT] Stat Exams 10/28/23 21:03 Completed NECK WO CONTRAST [CT] Stat Exams 10/28/23 21:03 Completed - Other Procedures and Tests Respiratory Therapy 10/29/23 01:15 EKG REPEAT IN AM Oxygen Nasal Cannula 2 lpm Assessment/Plan (1) Cellulitis Current Visit: Yes Status: Acute Assessment & Plan: Posterior neck. No abscess. WBC 16. Clindamycin 600mg q6 hrs. Monitor temp and WBC Code(s): L03.90 - CELLULITIS, UNSPECIFIED (2) Leukocytosis Current Visit: Yes Status: Acute Assessment & Plan: WBC 16K. 2/2 to the cellulitis. Pt is not septic on exam. Getting ABX for the cellulitis, monitor WBC trend Code(s): D72.829 - ELEVATED WHITE BLOOD CELL COUNT, UNSPECIFIED (3) Hyponatremia Current Visit: Yes Status: Acute Assessment & Plan: Na 132, mildly off. Should improve with LR at 75ml/hr. Do not expect any neurological symptom from this mildly low sodium level. Warrants monitoring Code(s): E87.1 - HYPO-OSMOLALITY AND HYPONATREMIA (4) Chest pain Current Visit: Yes Status: Acute Assessment & Plan: Chest pain is likely muscle-skeletal in nature given the description. Trop negative x 2. EKG no acute changes Code(s): R07.9 - CHEST PAIN, UNSPECIFIED (5) Diabetes Current Visit: Yes Status: Acute Assessment & Plan: He has oral meds but has not been taking them at home. Will check an A1C and place pt on SSI and accucheck ACHS. ADA diet. I counseled pt on the importance of diabetes control and regular follow-up and monitoring Code(s): E11.9 - TYPE 2 DIABETES MELLITUS WITHOUT COMPLICATIONS (6) Essential (primary) hypertension Current Visit: Yes Status: Acute Assessment & Plan: BP is not high. Monitor BP trend and react accordingly Code(s): I10 - ESSENTIAL (PRIMARY) HYPERTENSION Telemedicine Encounter - Telemedicine Encounter Telemedicine Encounter: The entirety of this encounter was performed via Telemedicine" Pt gave me verbal consent to have this telemedicine visit
[2023-10-29] MEDS ORDERED: Lactated Ringers 1,000 ML IV SCH (02:30)
[2023-10-29] MEDS: NORCO 5/325 MG PO PRN ×5 (03:40→21:47)
[2023-10-29 05:00] LABS: ANION GAP 11.4 MEQ/L (5-15); Calcium 9.1 mg/dL (8.4-10.2); Creatinine 1 0.48 mg/dL (0.66-1.25); Potassium 3.5 mmol/L (3.5-5.1)
[2023-10-29 05:04] LABS: Hematocrit 45.5 % (42-50); Hemoglobin 15.4 g/dL (12.5-18.0); Mean Cell Volume 90.6 fL (78-100); Mean Corpuscular Hemoglobin 30.7 pg (26-32); Mean Corpuscular Hgb Concent. 33.8 g/dL (32-36); Mean Platelet Volume 10.9 fL (7.5-11.0); Platelet Count 164 x10^3/uL (150-450); Red Blood Count 5.02 x10^6/uL (4.1-5.6); Red Cell Distribution Width 12.3 % (11.5-14.0); White Blood Count 12.2 x10^3/uL (4.0-10.5)
[2023-10-29] MEDS ORDERED: Cleocin Phosphate IV 600 MG/4 ML IV SCH (06:00)
[2023-10-29] MEDS ORDERED: CLINDAMYCIN-D5W 600 MG/50 ML*** 600 MG/50 ML BAG IV ONE (06:27)
[2023-10-29] MEDS ORDERED: CLINDAMYCIN-D5W 600 MG/50 ML*** 600 MG/50 ML BAG IV SCH ×2 (06:45→12:00)
[2023-10-29] MEDS: HUMALOG SQ PRN ×2 (08:23→21:47)
[2023-10-29] MEDS: ECOTRIN 81 MG PO SCH (09:31)
[2023-10-29] MEDS: ENOXAPARIN SODIUM SQ SCH (09:31)
[2023-10-29] MEDS ORDERED: Ecotrin 325 MG PO SCH (10:00)
[2023-10-29] MEDS ORDERED: Cyclobenzaprine 10 MG PO ONE (10:45)
[2023-10-29] MEDS: HUMALOG SQ SCH ×2 (12:10→17:17)
[2023-10-29] MEDS ORDERED: PHARMACY DOSING REQUIRED: VANCOMYCIN IV STA (12:29)
[2023-10-29] MEDS ORDERED: VANCOMYCIN 2 GRAM/400 ML BAG 2 GM/400 ML PIGGYBACK IV ONE (14:00)
[2023-10-29] MEDS: VANCOMYCIN 1.5 GRAM/300 ML BAG 1.5 GM/300 ML PIGGYBACK IV SCH (21:48)
[2023-10-30] MEDS: NORCO 5/325 MG PO PRN ×5 (01:48→22:23)
[2023-10-30 06:01] LABS: Hematocrit 46.6 % (42-50); Hemoglobin 15.6 g/dL (12.5-18.0); Mean Cell Volume 90.7 fL (78-100); Mean Corpuscular Hemoglobin 30.4 pg (26-32); Mean Corpuscular Hgb Concent. 33.5 g/dL (32-36); Mean Platelet Volume 10.7 fL (7.5-11.0); Platelet Count 188 x10^3/uL (150-450); Red Blood Count 5.14 x10^6/uL (4.1-5.6); Red Cell Distribution Width 12.1 % (11.5-14.0); White Blood Count 11.8 x10^3/uL (4.0-10.5)
[2023-10-30 06:22] LABS: ALBUMIN 3.8 g/dL (3.5-5.0); ANION GAP 12.1 MEQ/L (5-15); BILIRUBIN,TOTAL 0.3 mg/dL (0.2-1.3); Calcium 9.1 mg/dL (8.4-10.2); Creatinine 1 0.49 mg/dL (0.66-1.25); EST GLOMERULAR FILTRATION RATE 121.2 ML/MIN; Potassium 3.9 mmol/L (3.5-5.1); Total Protein 7.3 g/dL (6.3-8.2)
[2023-10-30] MEDS: VANCOMYCIN 1.5 GRAM/300 ML BAG 1.5 GM/300 ML PIGGYBACK IV SCH ×3 (06:32→22:23)
[2023-10-30] MEDS: HUMALOG SQ SCH ×3 (08:12→17:47)
[2023-10-30] MEDS: ECOTRIN 81 MG PO SCH (10:07)
[2023-10-30] MEDS: ENOXAPARIN SODIUM SQ SCH (10:07)
[2023-10-30] MEDS ORDERED: Cyclobenzaprine 10 MG PO ONE (10:59)
--- NOTE | 2023-10-30 11:05 | PCM.NOTE ---
Date and Time: 10/30/23 1100 Subjective Assessment: is a 53 year old male with past medical history of HTN, DMII and depression but is not taking any of his home medications. He presented 10/29 with c/o neck pain and sweating. He was found to have a 2.5cm area of redness and induration on the posterior aspect of his neck. He says this started hurting him 4 days prior. He thought he felt something bit him there 4 days ago as he remembered reaching back to scratch the area. IN ER he c/o chest pain radiating to hkis upper back. Says the pain starts in the neck and down to his chest and back. With with movement. Trop x3 negative. Pain most likely r/t to edema. Denies any previous CAD. CT chest negative. CT neck confirms soft tissue edema/stranding with no abscess formation. Since starting antibiotics and pain medication his pain has improved. Area of concern continues to drain purulent drainage. Testing did come back + for MRSA and antibiotics changed to Vancomycin. He started to have some SO last night and was placed on some oxygen for comfort. He denies CP, abd, pain, N/V/D. - Review of Systems Constitutional: No Fever, No Chills Eyes: No Symptoms Ears, Nose, & Throat: No Symptoms Respiratory: No Cough, No Short Of Breath Cardiac: No Chest Pain, No Edema, No Syncope Abdominal/Gastrointestinal: No Abdominal Pain, No Nausea, No Vomiting, No Diarrhea Genitourinary Symptoms: No Dysuria Musculoskeletal: No Back Pain, No Neck Pain Skin: Cellulitis (of back of neck with draining lesion), No Rash Neurological: No Dizziness, No Focal Weakness, No Sensory Changes Psychological: No Symptoms Endocrine: No Symptoms Hematologic/Lymphatic: No Symptoms Immunological/Allergic: No Symptoms Objective Exam General Appearance: no apparent distress, alert Neurologic Exam: alert, oriented x 3, cooperative, normal mood/affect, nml cerebellar function, sensation nml, No motor deficits Skin Exam: normal color, warm, dry Wound Assessment: Skin/Wound Assessment Wound/Incision Assessment Start: 10/29/23 01:3 6 Text: Status: Active Freq: Q6H Protocol: Document 10/30/23 08:00 MK (Rec: 10/30/23 09:33 MK [id number]) Wound/Incision Assessment Posterior Neck Wound Assessment Shift Assessment Wound Type cellulitis Wound Stage Non Pressure Wound Drainage Amount Moderate Drainage Description Purulent Drainage Odor None/Absent General Appearance Well Approximated,Open to air Length (cm) (cm) 2.5 Width (cm) (cm) 2.5 Comment cleaned with hibiclens antiseptic skin cleanser 2x day Eye Exam: PERRL, EOMI, eyes nml inspection Ears, Nose, Throat Exam: normal ENT inspection, pharynx normal, moist mucous membranes Neck Exam: supple, limited range of motion, other (Cellulitis middle posterior neck with purulent draining lesion) Respiratory Exam: normal breath sounds, lungs clear, No respiratory distress Cardiovascular Exam: regular rate/rhythm, normal heart sounds Gastrointestinal/Abdomen Exam: soft, No tenderness, No mass Extremity Exam: normal inspection, normal range of motion Back Exam: normal inspection, normal range of motion, No CVA tenderness, No vertebral tenderness Male Genitalia Exam: deferred Rectal Exam: deferred OBJECTIVE DATA Vital Signs: Vital Signs - 24 hr Temp Pulse Resp BP Pulse Ox 10/30/23 07:08 97.7 F 88 20 136/65 96 10/30/23 07:06 94 L 10/30/23 04:00 98.2 F 92 H 22 131/62 96 10/30/23 00:00 98.9 F 92 H 19 124/68 93 L 10/29/23 19:41 97 10/29/23 19:33 99.9 F 97 H 23 123/68 96 10/29/23 16:00 99.2 F 93 H 19 126/67 90 L 10/29/23 11:53 97.5 F 93 H 18 126/72 90 L Pain Assessment - Last Documented Pain Intensity 3 Pain Scale Used 0-10 Pain Scale Intake and Output: Intake & Output 10/27/23 10/28/23 10/29/23 10/30/23 11:59 11:59 11:59 11:59 Intake Total 1041 2600 Balance 1041 2600 Weight 103.5 kg Lab Results: Lab Results-Last 24 Hours 10/29/23 10/29/23 10/29/23 Range/Units 10:48 11:41 16:23 WBC (4.0-10.5) x10^3/uL RBC (4.1-5.6) x10^6/uL Hgb (12.5-18.0) g/dL Hct (42-50) % MCV (78-100) fL MCH (26-32) pg MCHC (32-36) g/dL RDW (11.5-14.0) % Plt Count (150-450) x10^3/uL MPV (7.5-11.0) fL Sodium (137-145) mmol/L Potassium (3.5-5.1) mmol/L Chloride (98-107) mmol/L Carbon Dioxide (22-30) mmol/L Anion Gap (5-15) MEQ/L BUN (9-20) mg/dL Creatinine (0.66-1.25) mg/dL Estimated GFR ML/MIN Glucose (74-106) mg/dL POC Glucometer 279 H 226 H (74 to 106) mg/dL Calcium (8.4-10.2) mg/dL Total Bilirubin (0.2-1.3) mg/dL AST (17-59) U/L ALT (0-50) U/L Alkaline Phosphatase (38-126) U/L Serum Total Protein (6.3-8.2) g/dL Albumin (3.5-5.0) g/dL Nasal Screen MRSA (PCR) DETECTED A (NEGATIVE) 10/29/23 10/30/23 10/30/23 Range/Units 20:55 05:35 05:35 WBC 11.8 H (4.0-10.5) x10^3/uL RBC 5.14 (4.1-5.6) x10^6/uL Hgb 15.6 (12.5-18.0) g/dL Hct 46.6 (42-50) % MCV 90.7 (78-100) fL MCH 30.4 (26-32) pg MCHC 33.5 (32-36) g/dL RDW 12.1 (11.5-14.0) % Plt Count 188 (150-450) x10^3/uL MPV 10.7 (7.5-11.0) fL Sodium 131 L (137-145) mmol/L Potassium 3.9 (3.5-5.1) mmol/L Chloride 97 L (98-107) mmol/L Carbon Dioxide 26 (22-30) mmol/L Anion Gap 12.1 (5-15) MEQ/L BUN 11 (9-20) mg/dL Creatinine 0.49 L (0.66-1.25) mg/dL Estimated GFR 121.2 ML/MIN Glucose 287 H (74-106) mg/dL POC Glucometer 264 H (74 to 106) mg/dL Calcium 9.1 (8.4-10.2) mg/dL Total Bilirubin 0.30 (0.2-1.3) mg/dL AST 25 (17-59) U/L ALT 37 (0-50) U/L Alkaline Phosphatase 125 (38-126) U/L Serum Total Protein 7.3 (6.3-8.2) g/dL Albumin 3.8 (3.5-5.0) g/dL Nasal Screen MRSA (PCR) (NEGATIVE) 10/30/23 Range/Units 07:25 WBC (4.0-10.5) x10^3/uL RBC (4.1-5.6) x10^6/uL Hgb (12.5-18.0) g/dL Hct (42-50) % MCV (78-100) fL MCH (26-32) pg MCHC (32-36) g/dL RDW (11.5-14.0) % Plt Count (150-450) x10^3/uL MPV (7.5-11.0) fL Sodium (137-145) mmol/L Potassium (3.5-5.1) mmol/L Chloride (98-107) mmol/L Carbon Dioxide (22-30) mmol/L Anion Gap (5-15) MEQ/L BUN (9-20) mg/dL Creatinine (0.66-1.25) mg/dL Estimated GFR ML/MIN Glucose (74-106) mg/dL POC Glucometer 253 H (74 to 106) mg/dL Calcium (8.4-10.2) mg/dL Total Bilirubin (0.2-1.3) mg/dL AST (17-59) U/L ALT (0-50) U/L Alkaline Phosphatase (38-126) U/L Serum Total Protein (6.3-8.2) g/dL Albumin (3.5-5.0) g/dL Nasal Screen MRSA (PCR) (NEGATIVE) Radiology Exams: Radiology Procedures Category Date Time Status CHEST WITH CONTRAST [CT] Stat Exams 10/28/23 21:03 Completed NECK WO CONTRAST [CT] Stat Exams 10/28/23 21:03 Completed Multi-Disciplinary Progress Notes: Multi-Disciplinary Progress Notes 10/29/23 12:52 Pharmacy Note by Jad Bain Pharmacokinetic dosing service Date: 10/29/2023 Time: 1300 Objective: Patient: BRITTANIE MONTAGUE Floor: 104 Age: 53 yo Serum creatinine: 0.48 mg/dL Height: 71 Inches Weight (kg): 103 Diagnosis: CELLULITIS - NECK POSSIBLE BITE Relevant medical/social history: NOT TAKING HOME MEDS Cultures and sensitivities: BLOOD PENDING Other labs: WBC = 12.2 Assessment: IBW (kg): 75.30 Dosing wt(kg): 103 Estimated Creatinine clearance (ml/min): 130 Clearance limited to 130 ml/min to reduce risk of overdosing. CRCL method: Cockcroft and Gault using ibw(default). Drug selected: Vancomycin Loading dose (mg): 2000 MG Vd (liters): 77.2 (factor used: 0.75 L/kg) [place] (hr-1): 0.112 Half life (hrs): 6.19 Recommended dose: 1500 mg Interval: 8 hrs Infusion time (hrs): 2.0 Predicted peak (mcg/mL): 29.4 Predicted trough (mcg/mL): 15.01 Total body weight is being used for vancomycin dosing. Renal function is stable [XXX ] /unstable [ ] Recommendations: Give Vancomycin 1500 mg q 8 hrs with an expected Cpeak of 29.4 mcg/ml and an expected Ctrough of 15.01 mcg/ml Renal dosing of other antibiotics (review renal dosing of other medications and list guidelines here): Thank you for the consult, will continue to follow. Signature: JAD BAIN Initialized on 10/29/23 12:52 - END OF NOTE Assessment/Plan (1) Cellulitis Current Visit: Yes Status: Acute Assessment & Plan: -Posterior neck. -No abscess per CT. -WBC 16. -Clindamycin 600mg q6 hrs. -Monitor temp and WBC - MRSA + changed to vancomycin, stopped clindamycin - Clean with Hibiclens BID - Pt refuses warm compress Code(s): L03.90 - CELLULITIS, UNSPECIFIED (2) MRSA (methicillin resistant staph aureus) culture positive Current Visit: Yes Status: Acute Assessment & Plan: - + Culture - antibiotics changed to Vancomycin- pharmacy to dose d/t hx DM Code(s): Z22.322 - CARRIER OR SUSPECTED CARRIER OF METHICILLIN RESIS STAPH (3) Musculoskeletal pain Current Visit: Yes Status: Acute Assessment & Plan: - Cyclobenzaprine X1 - Tylenol and [place] for pain Code(s): M79.18 - MYALGIA, OTHER SITE (4) Chest pain Current Visit: Yes Status: Acute Assessment & Plan: - resolved - Trop x3 negative - most likely musculoskeletal pain Code(s): R07.9 - CHEST PAIN, UNSPECIFIED (5) Diabetes Current Visit: Yes Status: Acute Assessment & Plan: -He has oral meds but has not been taking them at home. - A1C 9.19 - Humalog scheduled, SSI and accucheck ACHS. - ADA diet. - counseled pt on the importance of diabetes control and regular follow-up and monitoring Code(s): E11.9 - TYPE 2 DIABETES MELLITUS WITHOUT COMPLICATIONS (6) Hyponatremia Current Visit: Yes Status: Acute Assessment & Plan: - Na+ 131- Mild - good oral intake monitor - Consider fluid restriction Code(s): E87.1 - HYPO-OSMOLALITY AND HYPONATREMIA (7) Leukocytosis Current Visit: Yes Status: Acute Assessment & Plan: - Improved with antibiotics -11.8 Code(s): D72.829 - ELEVATED WHITE BLOOD CELL COUNT, UNSPECIFIED (8) Shortness of breath Current Visit: Yes Status: Acute Assessment & Plan: - CT chest 10/28/23: IMPRESSION: 1. No radiological evidence of pulmonary embolism on this CT. 2. 3 mm indeterminate semisolid subpleural soft tissue nodule in right upper lobe, requires follow up - Will need Op f/u with pulmonology - Supplemental O2 per pt request. - O2 was 94% RA, 97% on 2 LNC - May have sleep apnea due to obesity- consider OP sleep study Code(s): R06.02 - SHORTNESS OF BREATH (9) Obesity (BMI 30.0-34.9) Current Visit: Yes Status: Acute Assessment & Plan: - advised ADA diet and exercise control VTE: Lovenox Next of Kin: Child- Evangelina Phelan [phone] D/C plan: 1-2 days Code(s): E66.9 - OBESITY, UNSPECIFIED
[2023-10-30] MEDS: HUMALOG SQ PRN ×3 (12:40→22:23)
[2023-10-30] MEDS ORDERED: TROUGH DRUG LEVELS IJ ONE (13:30)
[2023-10-30] MEDS: TYLENOL 325 MG PO PRN (20:49)
--- NOTE | 2023-10-31 05:07 | PCM.NOTE ---
Date and Time: 10/31/23 0505 Subjective Assessment: is a 53 year old male with past medical history of HTN, DMII and depression (non-complaint with home meds) presented to ED 10/29 with c/o neck with radiation to the chest and back with associated sweating. He was found to have a 2.5cm area of redness and induration on the posterior aspect of his neck with onset [address] chest negative. CT neck confirms soft tissue edema/stranding with no abscess formation. Since starting antibiotics and pain medication his pain has improved. Area of concern continues to drain purulent drainage. Testing did come back + for MRSA and antibiotics. Current treatment with Vancomycin. 10/31/23: Patient examined bedside. Endorses 7/10 neck pain and tightness. Purulent drainage noted on exam. Wound culture ordered as well as a surgical consult for possible I&D. Will continue current treatment with vancomycin. May need ID on discharge to follow as op. Discussed blood glucose levels being elevated and the importance of good glycemic control for healing. A1C noted at 9.19. Will add lantus. Denies fever,cough, sob, cp, abdominal pain, YODER, dizziness, N/V/D. - Review of Systems Constitutional: No Symptoms Eyes: No Symptoms Ears, Nose, & Throat: No Symptoms Respiratory: No Symptoms Cardiac: No Symptoms Abdominal/Gastrointestinal: No Symptoms Genitourinary Symptoms: No Symptoms Musculoskeletal: Neck Pain (Open wound to posterior neck with purulent drainage) Skin: Cellulitis (posterior neck ) Neurological: No Symptoms Psychological: No Symptoms Endocrine: No Symptoms Objective Exam General Appearance: no apparent distress Neurologic Exam: alert, oriented x 3, cooperative Skin Exam: normal color Wound Assessment: Skin/Wound Assessment Wound/Incision Assessment Start: 10/29/23 01:36 Text: Status: Active Freq: Q6H Protocol: Document 10/31/23 02:00 LB (Rec: 10/31/23 02:58 LB [id number]) Wound/Incision Assessment Posterior Neck Wound Assessment Shift Assessment Wound Type cellulitis Wound Stage Non Pressure Wound Drainage Amount Moderate Drainage Description Purulent Drainage Odor None/Absent General Appearance Open to air,Reddened,Draining Length (cm) (cm) 2.5 Width (cm) (cm) 2.5 Wound Bed Greatest Portion Red (Granulation) Wound Bed Lesser Portion Yellow (Slough) Surrounding Tissue Bright Red Topical Solution/Irrigant Antibiotic Irrigant Wound Photo Photo Taken Yes Eye Exam: PERRL Ears, Nose, Throat Exam: normal ENT inspection, moist mucous membranes Neck Exam: other (Open wound to posterior neck with purulent drainage) Respiratory Exam: normal breath sounds, lungs clear Cardiovascular Exam: regular rate/rhythm, normal heart sounds Gastrointestinal/Abdomen Exam: soft, normal bowel sounds Extremity Exam: normal inspection Back Exam: normal inspection OBJECTIVE DATA Vital Signs: Vital Signs - 24 hr Temp Pulse Resp BP Pulse Ox 10/31/23 04:00 98.1 F 92 H 19 109/66 96 10/30/23 23:49 97.9 F 80 18 135/65 95 10/30/23 21:05 92 L 10/30/23 20:00 98.6 F 95 H 20 122/65 94 L 10/30/23 16:00 97.8 F 88 16 113/55 93 L 10/30/23 11:36 97.9 F 88 16 108/60 91 L 10/30/23 07:08 97.7 F 88 20 136/65 96 10/30/23 07:06 94 L Pain Assessment - Last Documented Pain Intensity 7 Pain Scale Used [facility] Intake and Output: Intake & Output 10/28/23 10/29/23 10/30/23 10/31/23 11:59 11:59 11:59 11:59 Intake Total 1041 2600 960 Balance 1041 2600 960 Weight 103.5 kg Lab Results: Lab Results-Last 24 Hours 10/30/23 10/30/23 10/30/23 Range/Units 05:35 05:35 07:25 WBC 11.8 H (4.0-10.5) x10^3/uL RBC 5.14 (4.1-5.6) x10^6/uL Hgb 15.6 (12.5-18.0) g/dL Hct 46.6 (42-50) % MCV 90.7 (78-100) fL MCH 30.4 (26-32) pg MCHC 33.5 (32-36) g/dL RDW 12.1 (11.5-14.0) % Plt Count 188 (150-450) x10^3/uL MPV 10.7 (7.5-11.0) fL Sodium 131 L (137-145) mmol/L Potassium 3.9 (3.5-5.1) mmol/L Chloride 97 L (98-107) mmol/L Carbon Dioxide 26 (22-30) mmol/L Anion Gap 12.1 (5-15) MEQ/L BUN 11 (9-20) mg/dL Creatinine 0.49 L (0.66-1.25) mg/dL Estimated GFR 121.2 ML/MIN Glucose 287 H (74-106) mg/dL POC Glucometer 253 H (74 to 106) mg/dL Calcium 9.1 (8.4-10.2) mg/dL Total Bilirubin 0.30 (0.2-1.3) mg/dL AST 25 (17-59) U/L ALT 37 (0-50) U/L Alkaline Phosphatase 125 (38-126) U/L Serum Total Protein 7.3 (6.3-8.2) g/dL Albumin 3.8 (3.5-5.0) g/dL Vancomycin Trough (10-20) ug/mL 10/30/23 10/30/23 10/30/23 Range/Units 11:28 13:55 16:18 WBC (4.0-10.5) x10^3/uL RBC (4.1-5.6) x10^6/uL Hgb (12.5-18.0) g/dL Hct (42-50) % MCV (78-100) fL MCH (26-32) pg MCHC (32-36) g/dL RDW (11.5-14.0) % Plt Count (150-450) x10^3/uL MPV (7.5-11.0) fL Sodium (137-145) mmol/L Potassium (3.5-5.1) mmol/L Chloride (98-107) mmol/L Carbon Dioxide (22-30) mmol/L Anion Gap (5-15) MEQ/L BUN (9-20) mg/dL Creatinine (0.66-1.25) mg/dL Estimated GFR ML/MIN Glucose (74-106) mg/dL POC Glucometer 305 H 215 H (74 to 106) mg/dL Calcium (8.4-10.2) mg/dL Total Bilirubin (0.2-1.3) mg/dL AST (17-59) U/L ALT (0-50) U/L Alkaline Phosphatase (38-126) U/L Serum Total Protein (6.3-8.2) g/dL Albumin (3.5-5.0) g/dL Vancomycin Trough 7.96 L (10-20) ug/mL 10/30/23 Range/Units 20:42 WBC (4.0-10.5) x10^3/uL RBC (4.1-5.6) x10^6/uL Hgb (12.5-18.0) g/dL Hct (42-50) % MCV (78-100) fL MCH (26-32) pg MCHC (32-36) g/dL RDW (11.5-14.0) % Plt Count (150-450) x10^3/uL MPV (7.5-11.0) fL Sodium (137-145) mmol/L Potassium (3.5-5.1) mmol/L Chloride (98-107) mmol/L Carbon Dioxide (22-30) mmol/L Anion Gap (5-15) MEQ/L BUN (9-20) mg/dL Creatinine (0.66-1.25) mg/dL Estimated GFR ML/MIN Glucose (74-106) mg/dL POC Glucometer 250 H (74 to 106) mg/dL Calcium (8.4-10.2) mg/dL Total Bilirubin (0.2-1.3) mg/dL AST (17-59) U/L ALT (0-50) U/L Alkaline Phosphatase (38-126) U/L Serum Total Protein (6.3-8.2) g/dL Albumin (3.5-5.0) g/dL Vancomycin Trough (10-20) ug/mL Assessment/Plan (1) Cellulitis Current Visit: Yes Status: Acute Assessment & Plan: -Posterior neck. -No abscess per CT. -WBC 16. -Clindamycin 600mg q6 hrs. -Monitor temp and WBC - MRSA + changed to vancomycin, stopped clindamycin - Clean with Hibiclens BID - Pt refuses warm compress 10/31: -surgical consult for possible I&D -Wound culture -Nasal swab + for MRSA -Continue vanc and cleansing with hibiclens BID Code(s): L03.90 - CELLULITIS, UNSPECIFIED (2) MRSA (methicillin resistant staph aureus) culture positive Current Visit: Yes Status: Acute Assessment & Plan: - + Culture - antibiotics changed to Vancomycin- pharmacy to dose d/t hx DM Code(s): Z22.322 - CARRIER OR SUSPECTED CARRIER OF METHICILLIN RESIS STAPH (3) Musculoskeletal pain Current Visit: Yes Status: Acute Assessment & Plan: - Cyclobenzaprine X1 - Tylenol and [place] for pain Code(s): M79.18 - MYALGIA, OTHER SITE (4) Chest pain Current Visit: Yes Status: Acute Assessment & Plan: - resolved - Trop x3 negative - most likely musculoskeletal pain Code(s): R07.9 - CHEST PAIN, UNSPECIFIED (5) Diabetes Current Visit: Yes Status: Acute Assessment & Plan: -He has oral meds but has not been taking them at home. - A1C 9.19 - Humalog scheduled, SSI and accucheck ACHS. - ADA diet. - counseled pt on the importance of diabetes control and regular follow-up and monitoring 10/31: -BS remain elevated, will add lantus 10 units, adjust as appropriate Code(s): E11.9 - TYPE 2 DIABETES MELLITUS WITHOUT COMPLICATIONS (6) Hyponatremia Current Visit: Yes Status: Acute Assessment & Plan: - Na+ 131- Mild - good oral intake monitor - Consider fluid restriction 10/31: -Improving, continue current management and monitoring Code(s): E87.1 - HYPO-OSMOLALITY AND HYPONATREMIA (7) Leukocytosis Current Visit: Yes Status: Acute Assessment & Plan: - Improved with antibiotics -09.28: -WBC now WNL Code(s): D72.829 - ELEVATED WHITE BLOOD CELL COUNT, UNSPECIFIED (8) Shortness of breath Current Visit: Yes Status: Acute Assessment & Plan: - CT chest 10/28/23: IMPRESSION: 1. No radiological evidence of pulmonary embolism on this CT. 2. 3 mm indeterminate semisolid subpleural soft tissue nodule in right upper lobe, requires follow up - Will need Op f/u with pulmonology - Supplemental O2 per pt request. - O2 was 94% RA, 97% on 2 LNC - May have sleep apnea due to obesity- consider OP sleep study Code(s): R06.02 - SHORTNESS OF BREATH (9) Obesity (BMI 30.0-34.9) Current Visit: Yes Status: Acute Assessment & Plan: - advised ADA diet and exercise control VTE: Lovenox Next of Kin: Child- Evangelina Phelan [phone] D/C plan: 1-2 days Code(s): L03.90 - CELLULITIS, UNSPECIFIED (2) MRSA (methicillin resistant staph aureus) culture positive Current Visit: Yes Status: Acute Code(s): Z22.322 - CARRIER OR SUSPECTED CARRIER OF METHICILLIN RESIS STAPH (3) Chest pain Current Visit: Yes Status: Acute Code(s): R07.9 - CHEST PAIN, UNSPECIFIED (4) Diabetes Current Visit: Yes Status: Acute Code(s): E11.9 - TYPE 2 DIABETES MELLITUS WITHOUT COMPLICATIONS (5) Hyponatremia Current Visit: Yes Status: Acute Code(s): E87.1 - HYPO-OSMOLALITY AND HYPONATREMIA (6) Leukocytosis Current Visit: Yes Status: Acute Code(s): D72.829 - ELEVATED WHITE BLOOD CELL COUNT, UNSPECIFIED (7) Musculoskeletal pain Current Visit: Yes Status: Acute Code(s): M79.18 - MYALGIA, OTHER SITE (8) Obesity (BMI 30.0-34.9) Current Visit: Yes Status: Acute Code(s): E66.9 - OBESITY, UNSPECIFIED (9) Shortness of breath Current Visit: Yes Status: Acute Code(s): R06.02 - SHORTNESS OF BREATH
[2023-10-31] MEDS: VANCOMYCIN 1.5 GRAM/300 ML BAG 1.5 GM/300 ML PIGGYBACK IV SCH ×3 (06:14→21:16)
[2023-10-31] MEDS: NORCO 5/325 MG PO PRN ×3 (06:25→20:30)
[2023-10-31 06:56] LABS: Hematocrit 47.2 % (42-50); Hemoglobin 15.9 g/dL (12.5-18.0); Mean Cell Volume 91.1 fL (78-100); Mean Corpuscular Hemoglobin 30.7 pg (26-32); Mean Corpuscular Hgb Concent. 33.7 g/dL (32-36); Mean Platelet Volume 10.5 fL (7.5-11.0); Platelet Count 204 x10^3/uL (150-450); Red Blood Count 5.18 x10^6/uL (4.1-5.6); Red Cell Distribution Width 12.2 % (11.5-14.0); White Blood Count 8.1 x10^3/uL (4.0-10.5)
[2023-10-31 06:58] LABS: ALBUMIN 3.8 g/dL (3.5-5.0); ANION GAP 9.4 MEQ/L (5-15); BILIRUBIN,TOTAL 0.3 mg/dL (0.2-1.3); Calcium 9.4 mg/dL (8.4-10.2); Creatinine 1 0.46 mg/dL (0.66-1.25); EST GLOMERULAR FILTRATION RATE 123.5 ML/MIN; Potassium 4.4 mmol/L (3.5-5.1); Total Protein 7.6 g/dL (6.3-8.2)
[2023-10-31] MEDS: HUMALOG SQ SCH ×3 (08:17→17:23)
[2023-10-31] MEDS: ECOTRIN 81 MG PO SCH (10:17)
[2023-10-31] MEDS: ENOXAPARIN SODIUM SQ SCH (10:17)
[2023-10-31] MEDS: HUMALOG SQ PRN ×3 (12:36→21:16)
[2023-10-31] MEDS: TYLENOL 325 MG PO PRN (16:07)
[2023-10-31] MEDS ORDERED: Lantus Insulin SQ SCH (22:00)
[2023-11-01] MEDS: NORCO 5/325 MG PO PRN ×2 (03:59→09:51)
--- NOTE | 2023-11-01 05:06 | PCM.NOTE ---
Date and Time: 11/01/23 0505 Subjective Assessment: is a 53 year old male with past medical history of HTN, DMII and depression (non-complaint with home meds) presented to ED 10/29 with c/o neck with radiation to the chest and back with associated sweating. He was found to have a 2.5cm area of redness and induration on the posterior aspect of his neck with onset [address] chest negative. CT neck confirms soft tissue edema/stranding with no abscess formation. Since starting antibiotics and pain medication his pain has improved. Area of concern continues to drain purulent drainage. Testing did come back + for MRSA and antibiotics. Current treatment with Vancomycin. 10/31/23: Patient examined bedside. Endorses 7/10 neck pain and tightness. Purulent drainage noted on exam. Wound culture ordered as well as a surgical consult for possible I&D. Will continue current treatment with vancomycin. May need ID on discharge to follow as op. Discussed blood glucose levels being elevated and the importance of good glycemic control for healing. A1C noted at 9.19. Will add lantus. Denies fever,cough, sob, cp, abdominal pain, YODER, dizziness, N/V/D. 11/01/23: Objective Exam Wound Assessment: Skin/Wound Assessment Wound/Incision Assessment Start: 10/29/23 01:36 Text: Status: Active Freq: Q6H Protocol: Document 11/01/23 02:00 SOPHIE (Rec: 11/01/23 03:59 SOPHIE [id number]) Wound/Incision Assessment Posterior Neck Wound Assessment Shift Assessment Wound Type CELLULITIS Wound Stage Non Pressure Wound Drainage Amount Moderate Drainage Description Yellow Drainage Odor None/Absent General Appearance Open to air,Reddened,Draining Wound Bed Greatest Portion Red (Granulation) Wound Bed Lesser Portion Yellow (Slough) Surrounding Tissue Bright Red Topical Solution/Irrigant Antibiotic Irrigant OBJECTIVE DATA Vital Signs: Vital Signs - 24 hr Temp Pulse Resp BP Pulse Ox 11/01/23 04:00 97.7 F 77 20 122/67 87 L 10/31/23 23:41 98.6 F 96 H 20 133/66 90 L 10/31/23 21:58 92 L 10/31/23 19:46 98.7 F 96 H 18 133/61 10/31/23 16:00 98.6 F 72 18 122/67 92 L 10/31/23 11:55 98.1 F 90 18 130/60 92 L 10/31/23 07:07 97.9 F 81 18 119/59 93 L 10/31/23 06:59 93 L Pain Assessment - Last Documented Pain Intensity 7 Pain Scale Used 0-10 Pain Scale Intake and Output: Intake & Output 10/29/23 10/30/23 10/31/23 11/01/23 11:59 11:59 11:59 11:59 Intake Total 1041 2600 1200 720 Output Total 500 Balance 1041 2600 1200 220 Weight 103.5 kg Lab Results: Lab Results-Last 24 Hours 10/31/23 10/31/23 10/31/23 Range/Units 06:21 06:21 06:58 WBC 8.1 (4.0-10.5) x10^3/uL RBC 5.18 (4.1-5.6) x10^6/uL Hgb 15.9 (12.5-18.0) g/dL Hct 47.2 (42-50) % MCV 91.1 (78-100) fL MCH 30.7 (26-32) pg MCHC 33.7 (32-36) g/dL RDW 12.2 (11.5-14.0) % Plt Count 204 (150-450) x10^3/uL MPV 10.5 (7.5-11.0) fL Sodium 134 L (137-145) mmol/L Potassium 4.4 (3.5-5.1) mmol/L Chloride 100 (98-107) mmol/L Carbon Dioxide 29 (22-30) mmol/L Anion Gap 9.4 (5-15) MEQ/L BUN 14 (9-20) mg/dL Creatinine 0.46 L (0.66-1.25) mg/dL Estimated GFR 123.5 ML/MIN Glucose 273 H (74-106) mg/dL POC Glucometer 268 H (74 to 106) mg/dL Calcium 9.4 (8.4-10.2) mg/dL Total Bilirubin 0.30 (0.2-1.3) mg/dL AST 47 (17-59) U/L ALT 59 H (0-50) U/L Alkaline Phosphatase 135 H (38-126) U/L Serum Total Protein 7.6 (6.3-8.2) g/dL Albumin 3.8 (3.5-5.0) g/dL 10/31/23 10/31/23 10/31/23 Range/Units 11:50 16:54 20:38 WBC (4.0-10.5) x10^3/uL RBC (4.1-5.6) x10^6/uL Hgb (12.5-18.0) g/dL Hct (42-50) % MCV (78-100) fL MCH (26-32) pg MCHC (32-36) g/dL RDW (11.5-14.0) % Plt Count (150-450) x10^3/uL MPV (7.5-11.0) fL Sodium (137-145) mmol/L Potassium (3.5-5.1) mmol/L Chloride (98-107) mmol/L Carbon Dioxide (22-30) mmol/L Anion Gap (5-15) MEQ/L BUN (9-20) mg/dL Creatinine (0.66-1.25) mg/dL Estimated GFR ML/MIN Glucose (74-106) mg/dL POC Glucometer 308 H 355 H 250 H (74 to 106) mg/dL Calcium (8.4-10.2) mg/dL Total Bilirubin (0.2-1.3) mg/dL AST (17-59) U/L ALT (0-50) U/L Alkaline Phosphatase (38-126) U/L Serum Total Protein (6.3-8.2) g/dL Albumin (3.5-5.0) g/dL Multi-Disciplinary Progress Notes: Multi-Disciplinary Progress Notes 10/31/23 13:51 Case Management Note by Melba Adamson S/W RT ABOUT OXYGEN. PATIENT TOLD THEM HE HAS HAD A SLEEP STUDY AND HAS SLEEP APNEA BUT REFUSED THE MACHINE. [facility] REPRESENTATIVE NOTIFIED- SCOUT DO OVERNIGHT PULSE OX PATIENT IS AGREEABLE OVERNIGHT OXYGEN PER CANNULA. ORDER ENTERED Initialized on 10/31/23 13:51 - END OF NOTE Assessment/Plan (1) Cellulitis Current Visit: Yes Status: Acute Assessment & Plan: -Posterior neck. -No abscess per CT. -WBC 16. -Clindamycin 600mg q6 hrs. -Monitor temp and WBC - MRSA + changed to vancomycin, stopped clindamycin - Clean with Hibiclens BID - Pt refuses warm compress 10/31: -surgical consult for possible I&D -Wound culture -Nasal swab + for MRSA -Continue vanc and cleansing with hibiclens BID Code(s): L03.90 - CELLULITIS, UNSPECIFIED (2) MRSA (methicillin resistant staph aureus) culture positive Current Visit: Yes Status: Acute Assessment & Plan: - + Culture - antibiotics changed to Vancomycin- pharmacy to dose d/t hx DM Code(s): Z22.322 - CARRIER OR SUSPECTED CARRIER OF METHICILLIN RESIS STAPH (3) Musculoskeletal pain Current Visit: Yes Status: Acute Assessment & Plan: - Cyclobenzaprine X1 - Tylenol and [place] for pain Code(s): M79.18 - MYALGIA, OTHER SITE (4) Chest pain Current Visit: Yes Status: Acute Assessment & Plan: - resolved - Trop x3 negative - most likely musculoskeletal pain Code(s): R07.9 - CHEST PAIN, UNSPECIFIED (5) Diabetes Current Visit: Yes Status: Acute Assessment & Plan: -He has oral meds but has not been taking them at home. - A1C 9.19 - Humalog scheduled, SSI and accucheck ACHS. - ADA diet. - counseled pt on the importance of diabetes control and regular follow-up and monitoring 10/31: -BS remain elevated, will add lantus 10 units, adjust as appropriate Code(s): E11.9 - TYPE 2 DIABETES MELLITUS WITHOUT COMPLICATIONS (6) Hyponatremia Current Visit: Yes Status: Acute Assessment & Plan: - Na+ 131- Mild - good oral intake monitor - Consider fluid restriction 10/31: -Improving, continue current management and monitoring Code(s): E87.1 - HYPO-OSMOLALITY AND HYPONATREMIA (7) Leukocytosis Current Visit: Yes Status: Acute Assessment & Plan: - Improved with antibiotics -09.28: -WBC now WNL Code(s): D72.829 - ELEVATED WHITE BLOOD CELL COUNT, UNSPECIFIED (8) Shortness of breath Current Visit: Yes Status: Acute Assessment & Plan: - CT chest 10/28/23: IMPRESSION: 1. No radiological evidence of pulmonary embolism on this CT. 2. 3 mm indeterminate semisolid subpleural soft tissue nodule in right upper lobe, requires follow up - Will need Op f/u with pulmonology - Supplemental O2 per pt request. - O2 was 94% RA, 97% on 2 LNC - May have sleep apnea due to obesity- consider OP sleep study Code(s): R06.02 - SHORTNESS OF BREATH (9) Obesity (BMI 30.0-34.9) Current Visit: Yes Status: Acute Assessment & Plan: - advised ADA diet and exercise control VTE: Lovenox Next of Kin: Child- Evangelina Phelan [phone] D/C plan: 1-2 days Code(s): L03.90 - CELLULITIS, UNSPECIFIED (2) MRSA (methicillin resistant staph aureus) culture positive Current Visit: Yes Status: Acute Code(s): Z22.322 - CARRIER OR SUSPECTED CARRIER OF METHICILLIN RESIS STAPH (3) Chest pain Current Visit: Yes Status: Acute Code(s): R07.9 - CHEST PAIN, UNSPECIFIED (4) Diabetes Current Visit: Yes Status: Acute Code(s): E11.9 - TYPE 2 DIABETES MELLITUS WITHOUT COMPLICATIONS (5) Hyponatremia Current Visit: Yes Status: Acute Code(s): E87.1 - HYPO-OSMOLALITY AND HYPONATREMIA (6) Leukocytosis Current Visit: Yes Status: Acute Code(s): D72.829 - ELEVATED WHITE BLOOD CELL COUNT, UNSPECIFIED (7) Musculoskeletal pain Current Visit: Yes Status: Acute Code(s): M79.18 - MYALGIA, OTHER SITE (8) Obesity (BMI 30.0-34.9) Current Visit: Yes Status: Acute Code(s): E66.9 - OBESITY, UNSPECIFIED (9) Shortness of breath Current Visit: Yes Status: Acute Code(s): R06.02 - SHORTNESS OF BREATH
[2023-11-01] MEDS ORDERED: TROUGH DRUG LEVELS IJ ONE (05:30)
[2023-11-01] MEDS ORDERED: Lantus Insulin SQ SCH (07:22)
--- NOTE | 2023-11-01 08:21 | CONS ---
CONSULT DATE: 10/31/2023 HISTORY: This is a 53-year-old gentleman who presented to the hospital a couple of days prior due to an abscess of his posterior neck. General surgery was consulted today and so I am seeing the patient for my partner. The patient reports that he feels like he has gotten better throughout his hospital course but continues to have some swelling in the posterior neck. He is not actively having a fever. He is stable on the floor. He is eating and drinking without issues. PAST MEDICAL HISTORY: Hypertension, diabetes. PAST SURGICAL HISTORY: Prior incision and drainage of an abscess on his leg from a brown recluse spider in the past. He has never had any problems with surgery. MEDICATIONS: He states that he is on some blood pressure and diabetes medicine which he takes occasionally if he thinks about it at home but he is generally noncompliant with medications at home. In the hospital, he is on vancomycin specifically for the infection. ALLERGIES: NKDA. SOCIAL HISTORY: Positive tobacco. Rare alcohol use. FAMILY HISTORY: He denies. LAB DATA AND TESTS: Laboratory studies have been reviewed. His blood culture preliminarily was negative. His abscess culture is pending. PHYSICAL EXAMINATION: GENERAL: No acute distress. CVS: Regular rate and rhythm. PULMONARY: Nonlabored respirations. ABDOMEN: Nondistended. NECK: His posterior neck has about 3 cm of induration with approximately a 2 cm cystic boil this is actively draining in two locations with purulent material easily expressed. It does not appear to be tracking deep in his neck just from exam. He is tender here appropriately but he said that this has significantly improved. Due to the fact that it is draining, it does not appear to be in urgent need of I&D. ASSESSMENT: Posterior cystic neck lesion with abscess and cellulitis. PLAN: The patient is actively draining purulent material this does not appear to accumulating. He also appears to have improved since he has been on IV antibiotics. I have recommended warm compress to the area three to four times daily as well as to continue the IV antibiotics. If the wound starts to worsen or fails to improve with this course, then surgery will be on standby. I have discussed with the patient that if this does happen where he does not improve or he worsens, we would make a large hole in the abscess itself to debride and clean out the devitalized tissue and then this will be packed and ultimately either way he will need a surgery to remove the cystic lesion that is the likely culprit that started this. If the antibiotics and warm compress help resolve this so that it heals then we may need just a single step smaller surgery to remove the cystic pocket down the road. The patient understands both treatment plans. He has eaten today. I do not think he needs any emergent surgery. Please call us if he should worsen or fail to improve and we will consider debridement at that time. Thank you for the consultation.
[2023-11-01] MEDS: HUMALOG SQ SCH ×2 (09:50→12:30)
[2023-11-01] MEDS: ENOXAPARIN SODIUM SQ SCH (09:51)
[2023-11-01] MEDS: HUMALOG SQ PRN ×2 (09:51→12:31)
[2023-11-01] MEDS: ECOTRIN 81 MG PO SCH (09:52)
[2023-11-01] MEDS ORDERED: VANCOMYCIN 1.5 GRAM/300 ML BAG 1.5 GM/300 ML PIGGYBACK IV SCH (10:00)
[2023-11-01] MEDS ORDERED: VANCOMYCIN 1 GRAM/200 ML BAG 1 GM/200 ML PIGGYBACK IV SCH (10:00)
[2023-11-01] MEDS: VANCOMYCIN 1.5 GRAM/300 ML BAG 1.5 GM/300 ML PIGGYBACK IV SCH (11:28)
[2023-11-01 11:57] VITALS: BP 120/59; PULSE 92; RESP 18; TEMP 97.9; O2SAT 92
--- NOTE | 2023-11-01 12:16 | PCM.DS ---
Discharge Summary Date of Admission: 10/29/23 01:17 Date of Discharge: 11/01/23 Admitting Physician: TAWANA ATKINSON DO Consults: Consults on Case 10/31/23 10:09 Consult Surgery ROUTINE Primary Care Provider: AMA HERRERA Allergies Allergies No Known Drug Allergies Allergy (Verified 10/28/23 20:52) Hospital Summary - Hospital Course Hospital Course: is a 53 year old male with past medical history of HTN, DMII and depression (non-complaint with home meds) presented to ED 10/29 with c/o neck with radiation to the chest and back with associated sweating. He was found to have a 2.5cm area of redness and induration on the posterior aspect of his neck with onset [address] chest negative. CT neck confirms soft tissue edema/stranding with no abscess formation. Since starting antibiotics and pain medication his pain has improved. Area of concern with drain purulent drainage. Testing did come back + for MRSA and vancomycin initiated. Surgery consulted with recommendations to treat medically, no surgical intervention needed. Blood culture NGTD. Wound culture or drainage is pending. Labs have normalized. Long discussion had regarding the importance of good glycemic control during the healing process. Patient admits that he does not take his diabetic meds as prescribed. Advised to resume diabetic medications, keep log of blood glucose levels. Will add Low dose sliding scale insulin to regimen. Patient to follow up in 3-5 days with PCP as well as infectious disease for further management. Patient agreeable to plan and is requesting discharge today. Pt with SUSAN on ov ernight pulse ox. Patient refusing CPAP, has to try before oxygen will be covered. Advised follow up OP with pulmonology. Discharge Note New Diagnosis: cellulitis MRSA + neck wound New Medications: Zyvox 600mg po bid x 7 days - follow up with Dr. Moses/ lispro/syringes Follow Up: PCP/ID/Pulm Results pending: wound culture Latest Assessment & Plan (1) Cellulitis Current Visit: Yes Status: Acute Assessment & Plan: -Posterior neck. -No abscess per CT. -WBC 16. -Clindamycin 600mg q6 hrs. -Monitor temp and WBC - MRSA + changed to vancomycin, stopped clindamycin - Clean with Hibiclens BID - Pt refuses warm compress 10/31: -surgical consult for possible I&D -Wound culture -Nasal swab + for MRSA -Continue vanc and cleansing with hibiclens BID Code(s): L03.90 - CELLULITIS, UNSPECIFIED (2) MRSA (methicillin resistant staph aureus) culture positive Current Visit: Yes Status: Acute Assessment & Plan: - + Culture - antibiotics changed to Vancomycin- pharmacy to dose d/t hx DM Code(s): Z22.322 - CARRIER OR SUSPECTED CARRIER OF METHICILLIN RESIS STAPH (3) Musculoskeletal pain Current Visit: Yes Status: Acute Assessment & Plan: - Cyclobenzaprine X1 - Tylenol and [place] for pain Code(s): M79.18 - MYALGIA, OTHER SITE (4) Chest pain Current Visit: Yes Status: Acute Assessment & Plan: - resolved - Trop x3 negative - most likely musculoskeletal pain Code(s): R07.9 - CHEST PAIN, UNSPECIFIED (5) Diabetes Current Visit: Yes Status: Acute Assessment & Plan: -He has oral meds but has not been taking them at home. - A1C 9.19 - Humalog scheduled, SSI and accucheck ACHS. - ADA diet. - counseled pt on the importance of diabetes control and regular follow-up and monitoring 10/31: -BS remain elevated, will add lantus 10 units, adjust as appropriate Code(s): E11.9 - TYPE 2 DIABETES MELLITUS WITHOUT COMPLICATIONS (6) Hyponatremia Current Visit: Yes Status: Acute Assessment & Plan: - Na+ 131- Mild - good oral intake monitor - Consider fluid restriction 10/31: -Improving, continue current management and monitoring Code(s): E87.1 - HYPO-OSMOLALITY AND HYPONATREMIA (7) Leukocytosis Current Visit: Yes Status: Acute Assessment & Plan: - Improved with antibiotics -09.28: -WBC now WNL Code(s): D72.829 - ELEVATED WHITE BLOOD CELL COUNT, UNSPECIFIED (8) Shortness of breath Current Visit: Yes Status: Acute Assessment & Plan: - CT chest 10/28/23: IMPRESSION: 1. No radiological evidence of pulmonary embolism on this CT. 2. 3 mm indeterminate semisolid subpleural soft tissue nodule in right upper lobe, requires follow up - Will need Op f/u with pulmonology - Supplemental O2 per pt request. - O2 was 94% RA, 97% on 2 LNC - May have sleep apnea due to obesity- consider OP sleep study Code(s): R06.02 - SHORTNESS OF BREATH (9) Obesity (BMI 30.0-34.9) Current Visit: Yes Status: Acute Assessment & Plan: - advised ADA diet and exercise control I spent 35 minutes [id number] with the patient on the day of discharge performing discharge exam, discussing hospital stay and discharge instructions with patient and caregivers, preparation of discharge records, prescriptions & referral forms and addressing any questions/concerns the patient had as do cumented above. - Vitals & Intake/Output Vital Signs: Vital Signs Temperature 97.9 F 11/01/23 11:56 Pulse Rate 92 H 11/01/23 11:56 Respiratory Rate 18 11/01/23 11:56 Blood Pressure 120/59 11/01/23 11:56 O2 Sat by Pulse Oximetry 92 L 11/01/23 11:56 Intake & Output: Intake & Output 10/30/23 10/31/23 11/01/23 11/02/23 11:59 11:59 11:59 11:59 Intake Total 2600 1200 1500 Output Total 500 Balance 2600 1200 1000 - Lab Result Diagrams: 10/31/23 06:21 10/31/23 06:21 Lab Results-Last 24 Hrs: Lab Results-Last 24 Hours 10/31/23 10/31/23 11/01/23 Range/Units 16:54 20:38 07:31 POC Glucometer 355 H 250 H 239 H (74 to 106) mg/dL Vancomycin Trough (10-20) ug/mL 11/01/23 11/01/23 Range/Units 09:00 11:52 POC Glucometer 335 H (74 to 106) mg/dL Vancomycin Trough 8.73 L (10-20) ug/mL Micro Results-Entire Visit: Microbiology 10/28/23 21:30 Blood Culture - Preliminary Blood 10/28/23 21:20 Blood Culture - Preliminary Blood Accuchecks Date 11/01/23 Date 11/01/23 Date 10/31/23 Date 10/31/23 Time 11:55 Time 07:43 Time 17:10 - Procedures and Test Procedures and Tests throughout Hospitalization: Therapy Orders & Screens 10/29/23 01:15 EKG REPEAT IN AM Comment: Oxygen Nasal Cannula 2 lpm Comment: 10/29/23 02:23 OT Screen per Nursing Assess ONCE Comment: Protocol Order Physician Instructions: Greater than 3 points order OT Admission Screening Reason For Exam: Triggered on Admission Diagnosis: Cellulitis of posterior aspect of neck; Chest pain; Diabetes Open Wound/Cellutlitis/Pressure Ulcers: Yes Acute Fx/ORIF/Change in wt bearing status: No Severe MUSCULOSKELETAL pain: No ADL Dysfunction: No Acute CVA w/Hemiparesis/Hemiplegia: No Decreased Functional Mobility/Strength: No Sprain/Strain: No Acute Post-op Mobility Dysfunction: No Total Points: 5 PT Screen per Nursing Assess ONCE Comment: Protocol Order Physician Instructions: Greater than 3 points order PT Admission Screenin Reason For Exam: Triggered on Admission Diagnosis: Cellulitis of posterior aspect of neck; Chest pain; Diabetes Open Wound/Cellutlitis/Pressure Ulcers: Yes Acute Fx/ORIF/Change in wt bearing status: No Severe MUSCULOSKELETAL pain: No ADL Dysfunction: No Acute CVA w/Hemiparesis/Hemiplegia: No Decreased Functional Mobility/Strength: No Sprain/Strain: No Acute Post-op Mobility Dysfunction: No Total Points: 5 Smoking Cessation Education ONCE Comment: Diagnosis: Cellulitis of posterior aspect of neck; Chest pain; Diabetes Smoking Status: Current every day smoker How long have you smoked: 50 yrs Have you smoked in the past 12 months: Yes Approximately how many cigarettes per day: 1 pk Do you dip or chew tobacco: Yes Discharge Exam General Appearance: no apparent distress Neurologic Exam: alert, oriented x 3, cooperative Eye Exam: PERRL Ears, Nose, Throat Exam: moist mucous membranes Neck Exam: normal inspection Respiratory Exam: normal breath sounds, lungs clear Cardiovascular Exam: regular rate/rhythm, normal heart sounds Gastrointestinal/Abdomen Exam: soft, normal bowel sounds Male Genitalia Exam: deferred Rectal Exam: deferred Back Exam: normal inspection Extremity Exam: normal inspection Skin Exam: other (Posterior neck open wound with purulent drainage) Wound Assessment: Skin/Wound Assessment Wound/Incision Assessment Start: 10/29/23 01:36 Text: Status: Active Freq: Q6H Protocol: Document 11/01/23 08:00 CHANDANA (Rec: 11/01/23 10:14 CHANDANA [id number]) Wound/Incision Assessment Posterior Neck Wound Assessment Shift Assessment Wound Type CELLULITIS Wound Stage Non Pressure Wound Drainage Amount Moderate Drainage Description Yellow Drainage Odor None/Absent General Appearance Open to air,Reddened,Draining Wound Bed Greatest Portion Red (Granulation) Wound Bed Lesser Portion Yellow (Slough) Surrounding Tissue Bright Red Topical Solution/Irrigant Antibiotic Irrigant Wound Photo Photo Taken Yes Comment: see paper chart Final Diagnosis/Problem List - Final Discharge Diagnosis/Problem (1) Cellulitis Current Visit: Yes Status: Acute Code(s): L03.90 - CELLULITIS, UNSPECIFIED (2) MRSA (methicillin resistant staph aureus) culture positive Current Visit: Yes Status: Acute Code(s): Z22.322 - CARRIER OR SUSPECTED CARRIER OF METHICILLIN RESIS STAPH (3) Chest pain Current Visit: Yes Status: Acute Code(s): R07.9 - CHEST PAIN, UNSPECIFIED (4) Diabetes Current Visit: Yes Status: Acute Code(s): E11.9 - TYPE 2 DIABETES MELLITUS WITHOUT COMPLICATIONS (5) Hyponatremia Current Visit: Yes Status: Acute Code(s): E87.1 - HYPO-OSMOLALITY AND HYPONATREMIA (6) Leukocytosis Current Visit: Yes Status: Acute Code(s): D72.829 - ELEVATED WHITE BLOOD CELL COUNT, UNSPECIFIED (7) Musculoskeletal pain Current Visit: Yes Status: Acute Code(s): M79.18 - MYALGIA, OTHER SITE (8) Obesity (BMI 30.0-34.9) Current Visit: Yes Status: Acute Code(s): E66.9 - OBESITY, UNSPECIFIED (9) Shortness of breath Current Visit: Yes Status: Acute Code(s): R06.02 - SHORTNESS OF BREATH - Discharge Disposition: Home, Self-Care Condition: Stable Prescriptions: New Linezolid [Zyvox] 600 mg PO BID 7 Days #14 tablet Metformin HCl 500 mg [Glucophage 500 MG] 500 mg PO BIDWM 30 Days #60 tablet Insulin Lispro 100 unit SQ UD 30 Days #10 ml Follow up with: AMA HERRERA [Primary Care Provider] - MISAEL MOSES [NON-STAFF PHY W/O PRIVILEGES] - 5 Days (MRSA neck wound) JOYA ZAVALETA MD [ACTIVE STAFF] - (NEEDS SCHEDULE FOR FOLLOW UP UPON DISCHARGE, POSSIBLE SURGERY) PAULINO CHEN [NON-STAFF PHY W/O PRIVILEGES] - (For diabetes managment 3-5 days) FREDDY HERRERA [ACTIVE STAFF] - 1 Week (SUSAN eval)
== END 2023-11-01 13:32 | disposition home or self-care (01) ==
LOC: ED 19:26 → MED SURG 10-29 01:17
PROVIDERS: ADMIT Internal Medicine; ATTEND Internal Medicine
DX: L03.221 Cellulitis of neck (principal); L02.11 Cutaneous abscess of neck; R07.9 Chest pain, unspecified; R06.02 Shortness of breath; E87.1 Hypo-osmolality and hyponatremia; D72.829 Elevated white blood cell count, unspecified; A49.02 Methicillin resistant Staphylococcus aureus infection, unspecified site; E11.9 Type 2 diabetes mellitus without complications; R51.9 Headache, unspecified; R53.83 Other fatigue; I10 Essential (primary) hypertension; F17.200 Nicotine dependence, unspecified, uncomplicated; Z28.310 Unvaccinated for COVID-19; M79.18 Myalgia, other site; F32.A Depression, unspecified
CPT/HCPCS: 36000; 36415; 70490; 71260; 80048; 80053; 80202; 81001; 82805; 82947; 83036; 83605; 83735; 84484; 85025; 85027; 87040; 87070; 87077; 87186; 87641; 93005; 93041; 93268; 94760; 94762; 96360; 96374; 99285; J1650; J1817; J1885; Q3014; A9270-GY; G0378; J3370

== ENCOUNTER 2025-02-02 12:38 | Emergency (ER) | payer OTHER ==
[2025-02-02 12:51] VITALS: PULSE 97; TEMP 97.6
--- NOTE | 2025-02-02 13:13 | ERPHSYRPT ---
- History of Present Illness Time Seen by Provider: 02/02/25 13:13 Source: patient, family Exam Limitations: no limitations Patient Subjective Stated Complaint: pt reports having stitches to the lateral side of his left eye approx 1-1.5 years ago and took out the stitches himself and now he has what appears to be an abcess with something in it, pt attempted to remove it without any luck, pt also reports using a hand saw about a month ago and continues to have pain in his right shoulder Triage Nursing Assessment: Pt brought to the ER by his , hypertensive, rates pain as 7/10, pulses normal, skin n/w/d, no difficulty breathing, denies chest pain, denies an actual injury to his shoulder, doesn't appear to be in any distress Physician History: Pt had onset of right shoulder pain 1 month ago after using hacksaw and has continued. he also has small area of abscess in skin lateral to left eye which corresponds to an area of stitching about 18 months ago . no recent trauma. no eye symptoms. Discussed with pt and available family risks and benefits of testing/Tx including x-ray limitations and need for eventual MRI with his DrAlfonso for shoulder diagnosis, pain med Toradol, Antibiotic, I and D of abscess, and they wish to proceed so these are ordered. paim in shoulder aggraved by abduction to 90 degrees and limited to that level. face nontender but abscess point is tender and less than 1 cm. ' Results discussed with pt and available family. pain level shoulder is 10 after toradol is 5-6 Occurred: days ago Method of Injury: other (repetitive arm motion) Quality: constant, burning, sharpness Severity of Pain-Max: moderate Severity of Pain-Current: moderate Extremities Pain Location: shoulder: right Modifying Factors: Improves With: movement Associated Symptoms: none Allergies/Adverse Reactions: No Known Drug Allergies Allergy (Verified 02/02/25 12:51) Hx Tetanus, Diphtheria Vaccination/Date Given: No Hx Influenza Vaccination/Date Given: No Hx Pneumococcal Vaccination/Date Given: No Travel Risk - International Travel Have you traveled outside of the country in past 3 weeks: No - Emerging Infectious Disease Are you exhibiting symptoms associated with any current EIDs: No - Review of Systems Constitutional: No Fever, No Chills Eyes: No Symptoms Ears, Nose, & Throat: No Symptoms Respiratory: No Cough, No Dyspnea Cardiac: No Chest Pain, No Edema, No Syncope Abdominal/Gastrointestinal: No Abdominal Pain, No Nausea, No Vomiting, No Diarrhea Genitourinary Symptoms: No Dysuria Musculoskeletal: No Back Pain, No Neck Pain Skin: Skin Lesions (abscess lateral to left ryr very small 1 cm. ), No Rash Neurological: No Dizziness, No Focal Weakness, No Sensory Changes Psychological: No Symptoms Endocrine: No Symptoms Hematologic/Lymphatic: No Symptoms Immunological/Allergic: No Symptoms All Other Systems: Reviewed and Negative - Past Medical History Pertinent Past Medical History: Yes Neurological History: No Pertinent History ENT History: No Pertinent History Cardiac History: Hypertension Respiratory History: Pneumonia Endocrine Medical History: Diabetes Type II Musculoskeletal History: No Pertinent History GI Medical History: No Pertinent History History: No Pertinent History Psycho-Social History: Depression Male Reproductive Disorders: No Pertinent History Other Medical History: IV drug use (Meth) - Past Surgical History Past Surgical History: Yes Neuro Surgical History: No Pertinent History Cardiac: No Pertinent History Respiratory: No Pertinent History Gastrointestinal: No Pertinent History Genitourinary: No Pertinent History Musculoskeletal: Other Male Surgical History: No Pertinent History Other Surgical History: surgery on leg Significant Family History: no pertinent family hx - Social History Smoking Status: Current every day smoker How long have you smoked: 50 yrs Exposure to second hand smoke: Yes Drug Use: none - Social Determinants of Health Will the patient participate in the screening: Yes Do you worry about a steady place to live?: No Do you have any problems with any of the following?: No known problems In the past 12 months,have you had to go without utilities?: No Transportation Issues: No Has anyone in your support network made you feel unsafe?: No Have you or anyone in your house had to go w/o enough food: No - Nursing Vital Signs Nursing Vital Signs: Initial Vital Signs Temperature 97.6 F 02/02/25 12:42 Pulse Rate 97 H 02/02/25 12:42 Blood Pressure 156/94 02/02/25 12:42 O2 Sat by Pulse Oximetry 96 02/02/25 12:42 Pain Scale Pain Intensity 7 - Physical Exam General Appearance: no apparent distress, alert Eyes, Ears, Nose, Throat Exam: moist mucous membranes Neck Exam: normal inspection, non-tender, supple, full range of motion Cardiovascular/Respiratory Exam: chest non-tender, normal breath sounds, regular rate/rhythm, no respiratory distress Abdominal Exam: non-tender, No guarding Back Exam: normal inspection, No vertebral tenderness Shoulder Exam: limited ROM, pain, soft tissue tenderness Elbow/Forearm Exam: normal inspection, non-tender, no evidence of injury, normal ROM Wrist Exam: normal inspection, non-tender, no evidence of injury, normal ROM Hand Exam: normal inspection, non-tender, no evidence of injury, normal ROM DTR - Upper Extremity Exam: bicep (R): 2+, bicep (L): 2+, tricep (R): 2+, tricep (L): 2+ Neuro/Tendon Exam: normal sensation, normal motor functions, normal tendon functions, no evidence tendon injury Mental Status Exam: alert, oriented x 3, cooperative Skin Exam: normal color, warm, dry SpO2 Interpretation: normal SpO2: 96 O2 Delivery: Room Air Procedures - Incision and Drainage Time of Procedure: 14:20 Site: lateral to left eye Anesthesia: 1% Lidocaine cc's of anesthesia: 2 Blade Size: 11 I & D Procedure: hibiclens prep, sterile drapes applied, sterile dressing applied, irrigated with normal saline, gauze wick placed Results: small amount pus Progress: nontender tissues and full ROm eye without visual changes or symptoms or conjunctival inflammation. - Course Nursing assessment & vital signs reviewed: Yes Ordered Tests: Medication Summary Discontinued Medications Generic Name Dose Route Start Last Admin Trade Name Dorinda PRN Reason Stop Dose Admin Ketorolac Tromethamine 60 mg 02/02/25 14:03 Ketorolac Tromethamine 30 Mg/Ml Inj IM 02/02/25 14:04 STAT ONE - Progress Progress: improved, re-examined Progress Note: 02/02/25 14:22 discussed ab tx and potential for culture and pt prefers to just go with I and D and AB and has the capacity to make this choice. . 02/02/25 14:27 pain in sagrarioudler initial was 10 then after Tx 5-6. Counseled pt/family regarding: diagnosis, need for follow-up Medical Desision Making - Independent Historian Additional History obtained from: Family - Discussion of managment Reviewed:: Test results, Need for additional workup Agreed on:: Treatment plan, need for follow-up - Diagnostic Testing Diagnostic test were ordered, analyzed, and reviewed by me: No - Risk of complications The pt has a mod risk of morbidity or mortality based on: Need for prescription drug management - Departure Departure Disposition: Home Clinical Impression: Right shoulder injury, Skin abscess Condition: Good Critical Care Time: No Referrals: AMA HERRERA [Primary Care Provider] - Follow up/PCP as directed Instructions: Rotator Cuff Injury (DC), Shoulder Tendinopathy (DC), Skin abscess drainage - Discharge instructions Additional Instructions: followup your blood pressure with your Dr. and for considering an MRI for your shoulder and Ortho referral. Apply the antibiotic ointment bactroban twice daily and change dressing, See your DrAlfonso Tuesday to remove anderson wick. There still may be a stitch to be removed by furhter procedure if indicated . A small scar is likely to result. Return meantime if increased drainage, pain, swelling , visual symptoms or any other concerns. Prescriptions: Mupirocin [Bactroban OINTMENT] 22 gm TP BID #1 cartridge Cephalexin Mh 500 mg [Keflex 500 mg] 500 mg PO TID 7 Days #21 cap
[2025-02-02 13:58] VITALS: O2SAT 96
[2025-02-02] MEDS ORDERED: TORAdol 30 mg Injection ONE (14:19)
[2025-02-02] MEDS: TORAdol 30 mg Injection IM ONE (14:20)
[2025-02-02 14:41] VITALS: BP 146/99
== END 2025-02-02 14:40 | disposition home or self-care (01) ==
LOC: ED 12:38
DX: S49.91XA Unspecified injury of right shoulder and upper arm, initial encounter (principal); X50.3XXA Overexertion from repetitive movements, initial encounter; L02.01 Cutaneous abscess of face; I10 Essential (primary) hypertension; E11.9 Type 2 diabetes mellitus without complications; Z79.899 Other long term (current) drug therapy; Z72.0 Tobacco use
CPT/HCPCS: 10060; 96372; 99282; 99283; J1885